=== PATIENT | female | born 1955 | race Caucasian/White ===

== ENCOUNTER 2020-09-08 07:47 | Outpatient (REF) | payer MEDICARE, SELFPAY ==
[2020-09-08 12:10] LABS: Alanine Aminotransferase 15 U/L (0-31); Albumin Level 4.3 g/dL (3.5-5.0); Alkaline Phosphatase 40 U/L (39-117); Anion Gap 12 (12-20); Aspartate Amino Transferase 26 U/L (5-31); Bilirubin Total 0.3 mg/dL (0.0-1.0); Blood Urea Nitrogen 14 mg/dL (9-16); Calcium 9.3 mg/dL (8.4-10.2); Carbon Dioxide 27 mmol/L (22-29); Chloride 105 mmol/L (96-108); Estimated Glomerular Filt Rate > 60; Glucose Fasting 88 mg/dL (60-99); Potassium 4.2 mmol/L (3.3-5.1); Sodium 140 mmol/L (135-145)
== END 2020-09-08 07:48 | disposition home or self-care (01) ==
LOC: HO.WFDLDS 07:47
PROVIDERS: PCP Internal Medicine; Visit Provider Nurse Practitioner Family
DX: Z13.1 Encounter for screening for diabetes mellitus (principal)
CPT/HCPCS: 36415; 80053

== ENCOUNTER 2020-11-08 11:46 | Outpatient (REF) | payer MEDICARE, SELFPAY ==
[2020-11-08 13:12] LABS: Vitamin B12 615 pg/mL (200-900)
== END 2020-11-08 11:47 | disposition home or self-care (01) ==
LOC: HO.LAB 11:46
PROVIDERS: PCP Internal Medicine; Visit Provider Psychiatry & Neurology Neurology
DX: G31.84 Mild cognitive impairment of uncertain or unknown etiology (principal)
CPT/HCPCS: 36415; 82607

== ENCOUNTER 2020-11-13 15:48 | Outpatient (REF) | payer MEDICARE, SELFPAY ==
--- NOTE | ~2020-11-13 | MR_ITS ---
EXAMINATION: MR BRAIN WITHOUT CONTRAST CLINICAL INFORMATION: Mild cognitive impairment. COMPARISON: None available. TECHNIQUE: Multiplanar, multisequence imaging of the brain was performed without intravenous contrast. FINDINGS: There is no acute infarction, mass, hemorrhage, or extra-axial collection. The ventricles and sulci are commensurate. No unexpected volume loss is seen. Specifically, no regional or lobar atrophy pattern is noted. The brain parenchyma signal appears normal. The flow voids of the major intracranial arteries appear intact. The bones and extracranial soft tissues are unremarkable. MR/MR head/brain wo con IMPRESSION: No acute infarct, mass lesion, intracranial hemorrhage, or evidence of hydrocephalus. No unexpected brain parenchymal volume loss.
== END 2020-11-13 15:49 | disposition home or self-care (01) ==
LOC: HO.MRI 15:48
PROVIDERS: Visit Provider Psychiatry & Neurology Neurology
DX: G31.84 Mild cognitive impairment of uncertain or unknown etiology (principal)
CPT/HCPCS: 70551

== ENCOUNTER 2020-11-17 11:33 | Outpatient (REF) | payer MEDICARE, SELFPAY ==
[2020-11-20 04:09] LABS: SARS COV2 IgG Negative (Negative)
== END 2020-11-17 11:34 | disposition home or self-care (01) ==
LOC: HO.WFDLDS 11:33
PROVIDERS: Visit Provider Family Medicine
DX: R05.9 Cough, unspecified (principal); Z01.84 Encounter for antibody response examination; Z20.822 Contact with and (suspected) exposure to COVID-19
CPT/HCPCS: 36415; 86769; U0003; U0005

== ENCOUNTER 2020-12-08 10:05 | Outpatient (REF) | payer MEDICARE, SELFPAY ==
--- NOTE | ~2020-12-08 | XR_ITS ---
EXAMINATION: XR CHEST CLINICAL INFORMATION: Cough. COMPARISON: None TECHNIQUE: 2 views of the chest were obtained. FINDINGS: No significant abnormality is noted involving the heart, lungs, mediastinum, bony thorax or soft tissues. XR/XR chest 2V IMPRESSION: Unremarkable examination.
== END 2020-12-08 10:06 | disposition home or self-care (01) ==
LOC: HO.XRAY 10:05
PROVIDERS: PCP Internal Medicine; Visit Provider Family Medicine
DX: R05.9 Cough, unspecified (principal)
CPT/HCPCS: 71046

== ENCOUNTER 2021-01-01 10:42 | Outpatient (REF) | payer MEDICARE, SELFPAY ==
[2021-01-03 21:17] LABS: Venous Lead <1 mcg/dL (<5)
== END 2021-01-01 10:43 | disposition home or self-care (01) ==
LOC: HO.WFDLDS 10:42
PROVIDERS: Visit Provider Internal Medicine
DX: Z77.011 Contact with and (suspected) exposure to lead (principal)
CPT/HCPCS: 36415; 83655

== ENCOUNTER 2021-01-30 09:18 | Outpatient (REF) | payer MEDICARE, SELFPAY ==
--- NOTE | ~2021-01-30 | FL_ITS ---
EXAMINATION: XR FLUOROSCOPY UPPER GI WITH AIR CLINICAL INFORMATION: Gastroesophageal reflux disease without esophagitis. COMPARISON: None. TECHNIQUE: A double contrast examination of the esophagus, stomach, and duodenum was performed. Oral barium contrast material and effervescent granules were self-administered. Fluoroscopic evaluation was performed and multiple spot images were obtained. FINDINGS: Pharyngeal structures and motility are normal without significant pooling of contrast in the valleculae and piriform sinuses. No diverticula. Esophageal mucosa appears normal with no evidence of stricture, ulceration, or significant esophagitis. Mild spontaneous gastroesophageal reflux into the distal third of the esophagus was seen with the patient in supine and prone positions. No hiatal hernia. Barium flows easily through a normal appearing stomach, duodenal bulb, and sweep without evidence of ulcer or inflammation. FLUOROSCOPY TIME: 1.8 minutes NUMBER OF FLUOROSCOPIC IMAGES (excluding screen captures): 30 images DOSE AREA PRODUCT: 6.8 Gy-cm2 (rico-centimeter squared) FL/FL upper GI w air IMPRESSION: Mild gastroesophageal reflux into the distal third of the esophagus without appreciable findings of acute esophagitis.
== END 2021-01-30 09:19 | disposition home or self-care (01) ==
LOC: HO.XRAY 09:18
PROVIDERS: Visit Provider Internal Medicine
DX: K21.9 Gastro-esophageal reflux disease without esophagitis (principal); R05.8 Other specified cough
CPT/HCPCS: 74246

== ENCOUNTER 2021-09-12 08:47 | Outpatient (REF) | payer MEDICARE, SELFPAY ==
--- NOTE | ~2021-09-12 | MM_ITS ---
EXAMINATION: BONE DENSITOMETRY CLINICAL INDICATION: Age-related osteoporosis without current pathological fracture. COMPARISON: Previous BD dated 09/09/2019 and baseline BD dated 07/05/2014. TECHNIQUE: Using a [employer] DXA System (software version: 13.1) manufactured by [employer], dual-energy x-ray absorptiometry was performed of the lumbar spine and left hip. The images are of good technical quality. Summary results are attached. FINDINGS: AP SPINE L1-L4: Current: BMD 0.945 g/cm2, Z-score 0.0, T-score -2.0, osteopenia, 3.5% decrease from previous, 10.3% decrease from baseline (<5% change is not significant). Prior: BMD 0.979 g/cm2. Baseline: BMD 1.053 g/cm2. LEFT FEMUR, NECK: Current: BMD 0.750 g/cm2, Z-score -0.3, T-score -2.1, osteopenia. Prior: BMD 0.699 g/cm2. Baseline: BMD 0.718 g/cm2. LEFT FEMUR, TOTAL: Current: BMD 0.769 g/cm2, Z-score -0.3, T-score -1.9, osteopenia, 9.9% increase from previous, 5.9% increase from baseline (<5% change is not significant). Prior: BMD 0.700 g/cm2. Baseline: BMD 0.726 g/cm2. IDENTIFIED RISK FACTORS: Osteoporosis, family history (parental hip fracture), menopause. HISTORY OF FRACTURE: None listed. MEDICATIONS: Calcium supplements or multivitamin, vitamin D, bisphosphonate. MM/XR DEXA axial skeleton IMPRESSION: 1. DIAGNOSIS: Osteopenia based on the lowest T-score value of -2.1 in the femoral neck applying World Health Organization criteria. 2. 10-YEAR FRACTURE RISK PREDICTION, FRAX: Major osteoporotic fracture (clinical spine, forearm, hip or shoulder) 18.0%. Hip fracture 2.8%. 3. Treatment Recommendations: NOF guidelines recommend consideration for treatment in postmenopausal women and men age 50 and older presenting with the following: -A hip or vertebral (clinical or morphometric) fracture. -T-score less than or equal to -2.5 at the femoral neck or spine after appropriate evaluation to exclude secondary causes. -Low bone mass at the hip or spine and a 10-year fracture probability by FRAX of greater than or equal to 3% for hip fracture or greater than or equal to 20% for major osteoporotic fracture based on the [place] adapted WHO algorithm. 4. Other Recommendations: All treatment decisions require clinical judgment and consideration of individual patient factors, including patient preferences, comorbidities, previous drug use, risk factors not captured in the FRAX model (e.g. frailty, falls, vitamin D deficiency, increased bone turnover, interval significant decline in bone density) and possible under or overestimation of fracture risk by FRAX. Additional medical evaluation for secondary cause of low bone mineral density may be appropriate. FUTURE SCAN RECOMMENDATION: People with diagnosed cases of osteoporosis or at high risk for fracture should have regular bone mineral density tests. For patients eligible for Medicare, routine testing is allowed once every 2 years. The testing frequency can be increased to one year for patients who have rapidly progressing disease, those who are receiving or discontinuing medical therapy to restore bone mass, or have additional risk factors.
== END 2021-09-12 08:48 | disposition home or self-care (01) ==
LOC: HO.MAMMO 08:47
PROVIDERS: PCP Internal Medicine; Visit Provider Internal Medicine
DX: M81.0 Age-related osteoporosis without current pathological fracture (principal); N95.1 Menopausal and female climacteric states
CPT/HCPCS: 77080

== ENCOUNTER 2021-09-21 08:20 | Outpatient (REF) | payer MEDICARE, SELFPAY ==
[2021-09-21 11:52] LABS: MANUAL DIFF FLAG NO
[2021-09-21 12:04] LABS: Basophils Absolute Auto 0.1 X10*3/uL (0.0-0.2); Basophils Percent Auto 1.2 % (0-2); Eosinophils Absolute Auto 0.3 X10*3/uL (0.0-0.4); Eosinophils Percent Auto 5.5 % (0-4); Imm Gran Abs Auto 0.02 X10*3/uL (0.00-0.03); Imm Gran Pct Auto 0.4 % (0.0-0.4); Lymphocytes Absolute Auto 1.5 X10*3/uL (1.2-4.9); Lymphocytes Percent Auto 30.3 % (20-40); Mean Corpuscular HGB Conc 31.6 g/dl (31.0-35.0); Mean Corpuscular Hemoglobin 28.2 pg (27.0-33.0); Mean Corpuscular Volume 89.2 fL (80.0-98.0); Mean Platelet Volume 11.8 fL (9.4-12.3); Monocytes Absolute Auto 0.6 X10*3/uL (0.1-1.2); Monocytes Percent Auto 12.6 % (2-11); Neutrophils Absolute Auto 2.5 x10*3/uL (2.0-8.3); Platelet Count 212 X10*3/uL (160-400); Red Blood Count 4.26 X10*6/uL (4.20-5.50); Red Cell Distribution Width 13.3 % (11.0-16.0); White Blood Count 4.9 X10*3/uL (4.8-10.8)
[2021-09-21 12:16] LABS: Appearance Urine CLEAR; Color Urine YELLOW; Glucose Urine UA NEG (NEG); Leukocyte Esterase Urine 1+ (NEG); Nitrite Urine NEG (NEG); PH 6.5 (5.0-8.0); Specific Gravity - Urine <= 1.005 (1.005-1.025); UACC Culture Trigger YES; Urine Blood NEG (NEG); Urine Ketones NEG (NEG); Urine Protein NEG (NEG-TRACE)
[2021-09-21 12:35] LABS: Alanine Aminotransferase 15 U/L (0-31); Albumin Level 4.4 g/dL (3.5-5.0); Alkaline Phosphatase 37 U/L (39-117); Anion Gap 13 (12-20); Aspartate Amino Transferase 23 U/L (5-31); Bilirubin Total 0.6 mg/dL (0.0-1.0); Blood Urea Nitrogen 18 mg/dL (9-16); Calcium 8.8 mg/dL (8.4-10.2); Carbon Dioxide 26 mmol/L (22-29); Chloride 103 mmol/L (96-108); Cholesterol 213 mg/dL; Estimated Glomerular Filt Rate > 60; Glucose Fasting 83 mg/dL (60-99); HDL Cholesterol 55 mg/dL; LDL Cholesterol Calculated 138 mg/dl; Potassium 4.2 mmol/L (3.3-5.1); Sodium 138 mmol/L (135-145); Total Protein 7.4 g/dL (6.5-8.0); Triglycerides 101 mg/dL
[2021-09-21 12:39] LABS: TSH reflex Free T4 2.76 uIU/mL (0.32-4.0); Vitamin D 25-OH Total 68.6 ng/mL (>30)
[2021-09-21 12:46] LABS: RBC Urine 0-2 /HPF (0); Squamous Epithelial Cell Urine TRACE /LPF
[2021-09-21 12:47] LABS: Bacteria Urine TRACE /LPF
== END 2021-09-21 08:21 | disposition home or self-care (01) ==
LOC: HO.WFDLDS 08:20
PROVIDERS: Visit Provider Internal Medicine
DX: I10 Essential (primary) hypertension (principal); E78.00 Pure hypercholesterolemia, unspecified; E55.9 Vitamin D deficiency, unspecified
CPT/HCPCS: 36415; 80053; 80061; 81001; 81003; 82306; 84443; 85025; 87086

== ENCOUNTER 2022-10-01 12:43 | Outpatient (AMB) | payer MEDICARE, SELFPAY ==
--- NOTE | 2022-10-01 12:47 | MHC.PC.OV ---
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 Required: No Accompanied by: Self / Same As Patient Allergies Chloroquine Phosphate Allergy (Intermediate, Uncoded 04/01/22 10:11) Hives Tobacco use date assessed: 10/01/22 Fall risk assessment: No Falls in past year Last assessed Fall Risk: 10/01/22 Dental Screening Dental Screen Date: 10/01/22 Did you have a dental visit in the last 12 months?: Yes Did you have a dental problem in the last 6 months where you did not have access to dental care?: No Was dental information given to patient?: Patient has dentist [facility] Medical History Allergic rhinitis Benign essential hypertension Osteoporosis Pure hypercholesterolemia Surgical History History of colonoscopy History of dilation and curettage History of tonsillectomy Family History Mother CHF (congestive heart failure) Diabetes Father Heart attack Brother Colon cancer Social History Housing: House Alcohol intake: current Alcohol intake frequency: does not drink Patient Tobacco Use Status: Never used Tobacco e-Cigarette/Vaping Use: Never Used Second Hand Smoke Exposure: No service: No Current occupational status: retired Cognitive needs: No Hearing needs: No Vision needs: Yes (Glasses) Questionnaire PHQ-9 Over the last 2 weeks, how often have you been bothered by any of the following problems? 1. Little interest or pleasure in doing things: several days 2. Feeling down, depressed, or hopeless: several days 3. Trouble falling or staying asleep, or sleeping too much: several days 4. Feeling tired or having little energy: several days 5. Poor appetite or overeating: not at all 6. Feeling bad about yourself - or that you are a failure or have let yourself or your family down: not at all 7. Trouble concentrating on things, such as reading the newspaper or watching television: not at all 8. Moving or speaking so slowly that other people could have noticed. Or the opposite - being so fidgety or restless that you have been moving around a lot more than usual: not at all 9. Thoughts that you would be better off or of hurting yourself in some way: not at all Total score: 4 Depression Screening Interpretation: Positive Depression Screening Follow-up: Declines treatment (states that this has mostly to do with stress regarding 's health) [address]642 - PHQ-9 Billing: Yes Source: Developed by Drs. Palomo Cueva, Trish Nunez, Dawson Zheng and colleagues, with an educational bre from [employer]. Thrive Questionnaire Date Thrive assessed: 10/01/22 I am a: Patient What is your living situation today?: I have a steady place to live Within the past 12 months, did the food you bought not last and you didn't have the money to get more?: Never true Within the past 12 months, did you worry whether your food would run out before you got money to buy more?: Never true Do you have trouble paying for medicines?: No Do you have trouble getting transportation to medical appointments?: No Do you have trouble paying your heating and electricity bill?: No Do you have trouble taking care of your child, family member or friend?: No Do you have trouble with day-to-day activities such as bathing, preparing meals, shopping, managing finances, etc.?: No Are you currently unemployed and looking for a job?: No Are you interested in more education?: No Please select the resources that you would like help with: None Currently or been in a relationship where the following occur: no concerns reported AUDIT C Alcohol Use Questionnaire (AUDIT-C) 1. How often do you have a drink containing alcohol?: Monthly or less 2. How many drinks containing alcohol do you have on a typical day when you are drinking?: 1 or 2 3. How often do you have six or more drinks on one occasion?: Never Total Score: 1 Score Reviewed/Action Taken: Yes NIKHIL-7 AMB Questionnaire NIKHIL-7 Date NIKHIL - 7 assessed: 10/01/22 Feeling nervous, anxious, or on edge: 0 = Not at all Not being able to stop or control worryin = Not at all Worrying too much about different things: 0 = Not at all Trouble relaxin = Not at all Being so restless that it is hard to sit still: 0 = Not at all Becoming easily annoyed or irritable: 0 = Not at all Feeling afraid as if something awful might happen: 0 = Not at all Total NIKHIL-7 score (0-4 normal; 5-9 mild; 10-14 moderate; 15-21 severe): 0 Source: Developed by Drs. Palomo Cueva, Trish Nunez, Dawson Zheng and colleagues, with an educational bre from [employer]. Physical exam (Primary Care) Vital Signs: Last Vital Signs Pulse 71 10/01/22 12:48 BP 114/80 10/01/22 12:48 Pulse Ox 95 10/01/22 12:48 Oxygen Delivery Method Room Air 10/01/22 12:48 BMI result Body Mass Index 20.1 Tobacco/Smoking Status: Tobacco use Status Tobacco use date assessed 10/01/22 10/01/22 12:55 Patient Tobacco Use Status Never used Tobacco 10/01/22 12:55 e-Cigarette/Vaping Use Never Used 10/01/22 12:55 PHQ-9: PHQ-9 Score PHQ-9: Total score 4 10/01/22 12:55 Depression Screening Interpretation: Positive Depression Screening Follow-up: Declines treatment (states that this has mostly to do with stress regarding 's health) Thrive Assessment: Date of Thrive Assessment Date Thrive assessed 10/01/22 10/01/22 12:55 Currently or been in a relationship where the following occur: no concerns reported Coding Diagnoses
[2022-10-01 12:48] VITALS: BP 114/80; PULSE 71; O2SAT 95; BMI 20.1
--- NOTE | 2022-10-01 12:56 | AM.OFFVISMDC ---
Intake Vital Signs 10/01/22 12:48 Height 5 ft 4 in Weight 117 lb 2 oz BMI 20.1 BP 114/80 Blood Pressure Location Lt brachial Position Sitting Pulse 71 Pulse Source Pulse Oximeter Pulse Oximetry (%) 95 Oxygen Delivery Method Room Air Intake Visit Reasons: physical Bag Bundler Required: No Accompanied by: Self / Same As Patient Allergies Chloroquine Phosphate Allergy (Intermediate, Uncoded 10/01/22 13:09) Hives Medication List - Last Reconciled 10/01/22 by Prem Blanchard MD calcium carbonate (Wander-Mint) 520 mg PO DAILY cholecalciferol (vitamin D3) 25 mcg PO DAILY ibandronate 150 mg PO .once a month 90 days losartan 25 mg PO DAILY multivitamin 1 tab PO DAILY omega-3 fatty acids (Fish Oil Concentrate) 1,000 mg PO DAILY polyethylene glycol 3350 (Miralax) 17 grams PO DAILY Do you need a note to return to daycare/school/sports/work: No HPI physical HPI Details Patient comes in today for her Annual Medicare Wellness Exam AND 6 months follow up visit States that she currently feels okay She denies any headaches or dizziness Denies any chest pains, no SOB No nausea/vomiting, no abdominal pain No change in bowel habits noted Reports experiencing on and off pain over both of her heels for the past few weeks; notes that symptoms tend to occur in the morning when she first gets up and would slowly ease up when she stretches her feet and walks gingerly on her feet for a while Does not recall any recent injury or trauma to her feet Was not able to get her follow up labs done prior to her visit today IPPE/AWV: c/o of Annual Wellness Visit, subsequent visit. Medical / Social History Reviewed Past Medical History Yes . [place] of Care / Care Team list updated Yes . Surgical/Hospitalization History Yes . Current Medications (including OTC and supplements) Yes . Family History Yes . Tobacco Control form Yes . AUDIT-C (Alcohol use) form Yes . Illicit drug use in Social History Yes . Current diagnosis of depression? No Appropriate PHQ2/PHQ9 completed Yes . Data entered by Money Room Supervisor and reviewed by provider Home Safety Throw rugs? No Grab bars? No Raised toilet seats? No Working smoke detectors? Yes Working carbon monoxide detectors? Yes Data entered by Money Room Supervisor and reviewed by provider Activities of Daily Living (ADLs) Difficulty bathing or showering? No Difficulty dressing? No Difficulty using the toilet? No Difficulty getting in and out of bed? No Difficulty walking? No Receives help from another person with any of the above tasks? No Instrumental Activities of Daily Living (IADLs) Uses the telephone without help Gets to places out of walking distance without help Goes shopping for groceries without help Prepares own meals without help Does own minor home maintenance without help Does own laundry without help Does own housework without help Manages own money without help Currently takes medications? Yes Takes medication without help End-of-Life Planning Discussed advance directive Yes Advance directive on file Discussed wishes expressed in advance directive agreed to following patient's wishes Fall Risk: Fall History Have you had any falls with injury in the past year? No . Have you had two or more falls in the past year? No . Fall Risk Assessment: No falls in the past year . HRA filled out by the patient, reviewed by Provider and scanned. [facility] Medical History (Updated 10/01/22 @ 13:47 by Prem Blanchard MD) Allergic rhinitis Benign essential hypertension Insomnia Osteoporosis Pure hypercholesterolemia Surgical History History of colonoscopy History of dilation and curettage History of tonsillectomy Family History Mother CHF (congestive heart failure) Diabetes Father Heart attack Brother Colon cancer Social History Housing: House Alcohol intake: current Alcohol intake frequency: does not drink Patient Tobacco Use Status: Never used Tobacco e-Cigarette/Vaping Use: Never Used Second Hand Smoke Exposure: No service: No Current occupational status: retired Cognitive needs: No Hearing needs: No Vision needs: Yes (Glasses) Questionnaire Medicare Wellness Checkup [age] What gender do you identify with?: female During the past 4 weeks, how much have you been bothered by emotional problems such as feeling anxious, depressed, irritable, sad or downhearted, and blue?: moderately During the past 4 weeks, has your physical & emotional health limited your social activities with family, friends, neighbors, or groups?: not at all During the past 4 weeks, how much bodily pain have you generally had?: very mild pain During the past 4 weeks, was someone available to help you if you needed & wanted help?: yes, quite a bit During the past 4 weeks, what was the hardest physical activity you could do for at least 2 minutes?: very heavy Can you get to places out of walking distance without help? (For eg., can you travel alone on buses, taxis or drive your car?): Yes Can you go shopping for groceries or clothes without someone's help?: Yes Can you prepare your own meals?: Yes Can you do your housework without help?: Yes Because of any health problems, do you need the help of another person with your personal care needs such as eating, bathing, dressing or getting around the house?: No Can you handle your own money without help?: Yes During the past 4 weeks, how would you rate your health in general?: very good During the past 4 weeks how have things been going for you?: pretty well Are you having difficulties driving your car?: no Do you always fasten your seat belt when you are in a car?: yes, usually During past 4 weeks, have you been bothered by the following: never: Falling or dizzy when standing up, Sexual problems?, Trouble eating well?, Teeth or denture problems?, Problems using the telephone? and Tiredness or fatigue? Have you fallen 2 or more times in the past year?: No Are you afraid of falling?: No Are you a smoker?: no During the past 4 weeks, how many drinks of wine, beer, or other alcoholic beverages did you have?: 1 drink or less per week Do you exercise for about 20 minutes 3 or more times a week?: yes, most of the time Have you been given information to help with the following?: no: Hazards in your house that might hurt you? and no: Keeping track of your medications? How often do you have trouble taking medicines the way you have been told to take them?: I always take medicine as prescribed How confident are you that you can control & manage most of your health problems?: very confident What is your race?: White Mini Mental State Exam (MMSE) Orientation What is the (year) (season) (date) (day) (month)?: year, season, date, day and month Where are we (state) (county) (town or city) (hospital) (floor)?: state, county, town or city, hospital/clinic and floor Score Score: 10 Activity of Daily Living Bathing - sponge bath, tub bath or shower: receives no assistance (gets in/out by self, if usual bathing means Dressing - getting clothes from closets & drawers, including inner/outer garments & fasteners.: gets clothes & gets completely dressed without help Toileting - going to the 'toilet room' for urine/bowel elimination & cleaning self/arranging clothes: goes to toilet room, cleans self, arranges clothes without help Transfer: moves in & out of bed and chair without help (may use support object) Continence: controls urination/bowel movements completely by self Feeding: feeds self without help Total Score: 0 Information obtained from: patient Using telephone: independent Traveling: independent Shopping: independent Preparing meals: independent Housework: independent Taking medicine: independent Managing money: independent PHQ-9 Over the last 2 weeks, how often have you been bothered by any of the following problems? 1. Little interest or pleasure in doing things: several days 2. Feeling down, depressed, or hopeless: several days (mostly due to some family members' failing health lately) 3. Trouble falling or staying asleep, or sleeping too much: several days 4. Feeling tired or having little energy: several days 5. Poor appetite or overeating: not at all 6. Feeling bad about yourself - or that you are a failure or have let yourself or your family down: not at all 7. Trouble concentrating on things, such as reading the newspaper or watching television: not at all 8. Moving or speaking so slowly that other people could have noticed. Or the opposite - being so fidgety or restless that you have been moving around a lot more than usual: not at all 9. Thoughts that you would be better off or of hurting yourself in some way: not at all Total score: 4 Depression Screening Interpretation: Positive Depression Screening Follow-up: Existing condition and Declines treatment 54107 - PHQ-9 Billing: Yes Source: Developed by Drs. Palomo Ceuva, Dawson Kovacs and colleagues, with an educational bre from [employer]. PHQ-2/PHQ-9 PHQ-2 Over the last 2 weeks, how often have you been bothered by any of the following problems? 1. Little interest or pleasure in doing things: several days 2. Feeling down, depressed, or hopeless: several days (mostly due to some family members' failing health lately) Total score: 2 If score is 3 or greater, continue 3. Trouble falling or staying asleep, or sleeping too much: several days 4. Feeling tired or having little energy: several days 5. Poor appetite or overeating: not at all 6. Feeling bad about yourself - or that you are a failure or have let yourself or your family down: not at all 7. Trouble concentrating on things, such as reading the newspaper or watching television: not at all 8. Moving or speaking so slowly that other people could have noticed. Or the opposite - being so fidgety or restless that you have been moving around a lot more than usual: not at all 9. Thoughts that you would be better off or of hurting yourself in some way: not at all Total score: 4 0-4 None-Minimal, 5-9 Mild, 10-14 Moderate, 15-19 Moderately Severe, 20-27 Severe Source: Developed by Drs. Palomo Cueva, Dawson Kovacs and colleagues, with an educational bre from [employer]. Thrive Questionnaire Date Thrive assessed: 10/01/22 I am a: Patient What is your living situation today?: I have a steady place to live Within the past 12 months, did the food you bought not last and you didn't have the money to get more?: Never true Within the past 12 months, did you worry whether your food would run out before you got money to buy more?: Never true Do you have trouble paying for medicines?: No Do you have trouble getting transportation to medical appointments?: No Do you have trouble paying your heating and electricity bill?: No Do you have trouble taking care of your child, family member or friend?: No Do you have trouble with day-to-day activities such as bathing, preparing meals, shopping, managing finances, etc.?: No Are you currently unemployed and looking for a job?: No Are you interested in more education?: No Please select the resources that you would like help with: None Currently or been in a relationship where the following occur: no concerns reported NIKHIL-7 AMB Questionnaire NIKHIL-7 Date NIKHIL - 7 assessed: 10/01/22 Feeling nervous, anxious, or on edge: 0 = Not at all Not being able to stop or control worryin = Not at all Worrying too much about different things: 0 = Not at all Trouble relaxin = Not at all Being so restless that it is hard to sit still: 0 = Not at all Becoming easily annoyed or irritable: 0 = Not at all Feeling afraid as if something awful might happen: 0 = Not at all Total NIKHIL-7 score (0-4 normal; 5-9 mild; 10-14 moderate; 15-21 severe): 0 Source: Developed by Drs. Palomo Cueva, Trish Nunez, Dawson Zheng and colleagues, with an educational bre from [employer]. Review of Systems Const Denies chills, Reports difficulty sleeping, Reports fatigue, Denies fever(s) and Denies headache(s) ENT Denies dysphagia, Denies dizziness, Denies otalgia, Denies headache(s), Reports hearing loss, Reports tinnitus (in both ears for the past few months, more noticeable at night) and Denies sore throat Card Denies chest pain, Denies palpitations and Denies dyspnea Resp Denies chest congestion, Denies cough and Denies dyspnea GI Denies abdominal pain, Denies constipation, Denies dysphagia, Denies heartburn, Denies diarrhea, Denies nausea and Denies vomiting Denies difficulty voiding, Denies nocturia and Denies dysuria Musc Details: on and off mild pain over the heels bilaterally Neuro Denies dizziness and Denies headache(s) Endo Reports fatigue and Denies palpitations Physical Exam Vital Signs: Last Vital Signs Pulse 71 10/01/22 12:48 BP 114/80 10/01/22 12:48 Pulse Ox 95 10/01/22 12:48 Oxygen Delivery Method Room Air 10/01/22 12:48 BMI result Body Mass Index 20.1 IPPE/AWV: Balance Romberg Yes . Tandem walk Yes . Walk and Turn Yes . Rise from sit to stand Yes . Vision Corrective lens No Vision screen pass Hearing Whisper test pass . Urinary incont. no. EKG Not clinically necessary. Const General: no acute distress and alert Orientation/consciousness: patient oriented x3 HEENT Ears: TM's normal bilaterally and EAC's normal Throat: Yes posterior oropharynx normal and Yes tonsils normal (no TP congestion noted) Neck Neck: Yes no lymphadenopathy and Yes supple Resp Auscultation: clear to auscultation bilaterally, no rales and no wheezes Cardio Rate: regular rate Rhythm: regular rhythm Heart sounds: no murmurs GI Palpation (GI): Soft to palpation and nontender Auscultation: normal bowel sounds Skin Rashes: no rashes Neuro General: patient oriented x3 and no focal motor deficits Cognition (Neuro): normal cognition Gait exam (Neuro): Normal gait present Extrem General: Yes no clubbing, cyanosis or edema Right lower extremity: foot Details: tenderness (minimal) Location: of the calcaneus Left lower extremity: foot Details: tenderness (minimal) Location: of the calcaneus Psych Mental Status: mental status grossly normal Thought process: Normal thought process present Assessment & Plan Assessment & Plan (1) Medicare annual wellness visit, subsequent: Code(s): Z00.00 - Encounter for general adult medical examination without abnormal findings Plan: HRA form completed and discussed with patient; form will be scanned into patient's chart She is due for her repeat colonoscopy this year and will contact her solar energy specialist's (Dr. 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 (2) Pure hypercholesterolemia: Code(s): E78.00 - Pure hypercholesterolemia, unspecified Plan: Reinforced low cholesterol diet Instructed to try getting her follow up labs done AVINASH (3) Benign essential hypertension: Code(s): I10 - Essential (primary) hypertension Plan: Reinforced low sodium diet - goal is systolic BP of at least 130 mm or less Continue Losartan 25 mg QD (4) Recurrent dry cough: Code(s): R05.8 - Other specified cough Plan: Previously resolved when her Lisinopril was switched over to Losartan but states that her symptoms still recur every now and then; denies any SOB CXR in November 2020 came out normal; UGI series in January 2021 showed (+) GERD up to the distal third of the esophagus Symptoms have improved with Famotidine PRN and Loratadine PRN, so she thinks that her recurrent symptoms could be due to a combination of GERD and allergies (5) GERD (gastroesophageal reflux disease): Code(s): K21.9 - Gastro-esophageal reflux disease without esophagitis Qualifiers: Esophagitis presence: without esophagitis Qualified Code(s): K21.9 - Gastro-esophageal reflux disease without esophagitis Plan: Upper GI series for further evaluation done in January 2021 revealed (+) mild reflux into the distal third of the esophagus Continue OTC Famotidine 20 mg BID PRN; could not tolerate Omeprazole 20 mg - patient reports frequent abdominal bloating, gas and occasional diarrhea while she was on Omeprazole Reinforced dietary restrictions (6) Allergic rhinitis: Code(s): J30.9 - Allergic rhinitis, unspecified Qualifiers: Allergic rhinitis trigger: unspecified Allergic rhinitis seasonality: unspecified Qualified Code(s): J30.9 - Allergic rhinitis, unspecified Plan: Continue OTC Loratadine 10 mg QD PRN (7) IBS (irritable bowel syndrome): Code(s): K58.9 - Irritable bowel syndrome without diarrhea Qualifiers: Irritable bowel syndrome type: with constipation Qualified Code(s): K58.1 - Irritable bowel syndrome with constipation Plan: Symptoms are predominantly constipation Continue Miralax 17 gm QD (8) Osteoporosis: Code(s): M81.0 - Age-related osteoporosis without current pathological fracture Qualifiers: Osteoporosis type: age-related Presence of current pathological fracture: without current pathological fracture Qualified Code(s): M81.0 - Age-related osteoporosis without current pathological fracture Plan: Repeat BMD done on 09/12/2021 revealed osteopenia based on the lowest T-score value of -2.1 in the femoral neck - this has again improved from her BMD in 2019 Patient encouraged to continue her daily Vitamin-D and oral calcium aupplements Continue Ibandronate 150 mg Q month (started in March 2018) (9) Pain of both heels: Code(s): M79.671 - Pain in right foot; M79.672 - Pain in left foot Plan: Will send her for x-rays of both feet/heels for further evaluation Discussed that her symptoms may be due to heel spurs or plantar fasciitis and if symptoms progress, may need to refer her to podiatry (10) Insomnia: Code(s): G47.00 - Insomnia, unspecified Qualifiers: Insomnia type: unspecified Qualified Code(s): G47.00 - Insomnia, unspecified Plan: States that her problem is mostly staying asleep and she tends to wake up for no identifiable reason after 4 to 5 hours of sleep and she has a hard time going back to sleep Advised that she can try some OTC sleep aids PRN for now and if they do not help, she can always call for stronger Rx for her insomnia at any time Sleep hygiene discussed Plan Follow up in 6 months Orders: Orders XR foot LT min 3V Today M79.671 - Pain in right foot, M79.672 - Pain in left foot XR foot RT min 3V Today M79.671 - Pain in right foot, M79.672 - Pain in left foot Quality Reporting (2019) Depression/Bipolar (159/160/161/177) PHQ-9: Total score: 4 Coding Level of Care Code Medicare Subsequent (G0439) Est Pt Level 4 (10959) Diagnoses Medicare annual wellness visit, subsequent Z00.00 Pure hypercholesterolemia E78.00 Benign essential hypertension I10 Recurrent dry cough R05.8 GERD (gastroesophageal reflux disease) K21.9 Esophagitis presence: without esophagitis Allergic rhinitis J30.9 Allergic rhinitis trigger: unspecified Allergic rhinitis seasonality: unspecified IBS (irritable bowel syndrome) K58.1 Irritable bowel syndrome type: with constipation Osteoporosis M81.0 Osteoporosis type: age-related Presence of current pathological fracture: without current pathological fracture Pain of both heels M79.671; M79.672 Insomnia G47.00 Insomnia type: unspecified
== END 2022-10-01 13:38 | disposition home or self-care (01) ==
PROVIDERS: Visit Provider Internal Medicine
DX: Z00.00 Encounter for general adult medical examination without abnormal findings (principal); I10 Essential (primary) hypertension; K21.9 Gastro-esophageal reflux disease without esophagitis; K58.1 Irritable bowel syndrome with constipation; E78.00 Pure hypercholesterolemia, unspecified; R05.8 Other specified cough; J30.9 Allergic rhinitis, unspecified; M81.0 Age-related osteoporosis without current pathological fracture; M79.671 Pain in right foot; M79.672 Pain in left foot; G47.00 Insomnia, unspecified
CPT/HCPCS: G0439

== ENCOUNTER 2022-10-02 07:57 | Outpatient (REF) | payer MEDICARE, SELFPAY ==
[2022-10-02 11:21] LABS: MANUAL DIFF FLAG NO
[2022-10-02 11:35] LABS: Basophils Absolute Auto 0.1 X10*3/uL (0.0-0.2); Basophils Percent Auto 1.2 % (0-2); Eosinophils Absolute Auto 0.3 X10*3/uL (0.0-0.4); Eosinophils Percent Auto 7.2 % (0-4); Hematocrit 36.3 % (37.0-47.0); Hemoglobin 11.6 g/dl (12.0-16.0); Imm Gran Abs Auto 0.01 X10*3/uL (0.00-0.03); Imm Gran Pct Auto 0.2 % (0.0-0.4); Lymphocytes Absolute Auto 1.4 X10*3/uL (1.2-4.9); Lymphocytes Percent Auto 31.9 % (20-40); Mean Corpuscular Hemoglobin 28.9 pg (27.0-33.0); Mean Corpuscular Volume 90.3 fL (80.0-98.0); Mean Platelet Volume 12.1 fL (9.4-12.3); Monocytes Absolute Auto 0.6 X10*3/uL (0.1-1.2); Monocytes Percent Auto 13.7 % (2-11); Neutrophils Percent Auto 45.8 % (45-73); Platelet Count 183 X10*3/uL (160-400); Red Blood Count 4.02 X10*6/uL (4.20-5.50); Red Cell Distribution Width 13.5 % (11.0-16.0); White Blood Count 4.3 X10*3/uL (4.8-10.8)
[2022-10-02 11:56] LABS: Appearance Urine Clear; Color Urine Yellow; Glucose Urine UA Negative (Negative); Leukocyte Esterase Urine Moderate (2+) (Negative); Nitrite Urine Negative (Negative); UMIC TRIGGER UACC YES; Urine Blood Negative (Negative); Urine Ketones Negative (Negative); Urine Protein Negative (Neg-Trace)
[2022-10-02 11:58] LABS: Alanine Aminotransferase 15 U/L (0-31); Albumin Level 4.2 g/dL (3.5-5.0); Alkaline Phosphatase 34 U/L (39-117); Anion Gap 10 (12-20); Aspartate Amino Transferase 24 U/L (5-31); Bilirubin Total 0.5 mg/dL (0.0-1.0); Blood Urea Nitrogen 15 mg/dL (9-16); Calcium 9.6 mg/dL (8.4-10.2); Carbon Dioxide 30 mmol/L (22-29); Chloride 104 mmol/L (96-108); Cholesterol 187 mg/dL; Estimated Glomerular Filt Rate > 60; Glucose Fasting 84 mg/dL (60-99); HDL Cholesterol 51 mg/dL; LDL Cholesterol Calculated 119 mg/dl; Potassium 4.3 mmol/L (3.3-5.1); Sodium 140 mmol/L (135-145); Total Protein 7.4 g/dL (6.5-8.0); Triglycerides 89 mg/dL
[2022-10-02 12:00] LABS: Bacteria Urine None Seen (None Seen); Hyaline Casts Urine 0-2 /LPF (0-2); RBC Urine 0-2 /HPF (0-2); Squamous Epithelial Cell Urine 0-2 /HPF (0-2); UACC Culture Trigger YES
[2022-10-02 12:20] LABS: TSH reflex Free T4 3.26 uIU/mL (0.32-4.0); Vitamin D 25-OH Total 93.4 ng/mL (>30)
== END 2022-10-02 07:58 | disposition home or self-care (01) ==
LOC: HO.WFDLDS 07:57
PROVIDERS: Visit Provider Internal Medicine
DX: E55.9 Vitamin D deficiency, unspecified (principal); I10 Essential (primary) hypertension; E78.00 Pure hypercholesterolemia, unspecified; R30.0 Dysuria
CPT/HCPCS: 36415; 80053; 80061; 81001; 82306; 84443; 85025; 87086

== ENCOUNTER 2022-10-03 14:02 | Outpatient (REF) | payer MEDICARE, SELFPAY ==
--- NOTE | ~2022-10-03 | XR_ITS ---
EXAMINATION: Bilateral foot x-ray CLINICAL INFORMATION: Pain COMPARISON: None. TECHNIQUE: 3 views of each foot FINDINGS: Right: Hallux valgus deformity and degenerative change at the first MTP joint. No erosive changes. No fracture or dislocation. Soft tissue calcifications adjacent to the second third and fifth metatarsal bones. No fracture or dislocation. Left: Mild valgus deformity and degenerative change at the first MTP joint. Slight lateral subluxation of the proximal phalanx with respect to the metatarsal head. No erosive changes. Adjacent soft tissue swelling. No fracture or dislocation. XR/XR foot RT min 3V IMPRESSION: Bilateral hallux valgus deformity and degenerative change at the first MTP joint, left greater than right.
--- NOTE | ~2022-10-03 | XR_ITS ---
EXAMINATION: Bilateral foot x-ray CLINICAL INFORMATION: Pain COMPARISON: None. TECHNIQUE: 3 views of each foot FINDINGS: Right: Hallux valgus deformity and degenerative change at the first MTP joint. No erosive changes. No fracture or dislocation. Soft tissue calcifications adjacent to the second third and fifth metatarsal bones. No fracture or dislocation. Left: Mild valgus deformity and degenerative change at the first MTP joint. Slight lateral subluxation of the proximal phalanx with respect to the metatarsal head. No erosive changes. Adjacent soft tissue swelling. No fracture or dislocation. XR/XR foot LT min 3V IMPRESSION: Bilateral hallux valgus deformity and degenerative change at the first MTP joint, left greater than right.
== END 2022-10-03 14:03 | disposition home or self-care (01) ==
LOC: HO.XRAY 14:02
PROVIDERS: PCP Internal Medicine; Visit Provider Internal Medicine
DX: M79.671 Pain in right foot (principal); M79.672 Pain in left foot
CPT/HCPCS: 73630

== ENCOUNTER 2023-04-03 11:43 | Outpatient (AMB) | payer MEDICARE, SELFPAY ==
[2023-04-03 11:52] VITALS: BP 132/88; PULSE 61; O2SAT 98; BMI 20.5
--- NOTE | 2023-04-03 11:52 | MHC.PC.OV ---
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 Accompanied by: Self / Same As Patient Allergies Chloroquine Phosphate Allergy (Intermediate, Uncoded 04/03/23 12:15) Hives Medication List - Last Reconciled 04/03/23 by Prem Blanchard MD calcium carbonate (Wander-Mint) 520 mg PO DAILY cholecalciferol (vitamin D3) 25 mcg PO DAILY losartan 25 mg PO DAILY multivitamin 1 tab PO DAILY omega-3 fatty acids (Fish Oil Concentrate) 1,000 mg PO DAILY polyethylene glycol 3350 (Miralax) 17 grams PO DAILY Tobacco use date assessed: 04/03/23 Fall risk assessment: 2 + Falls in past year Last assessed Fall Risk: 04/03/23 Dental Screening Dental Screen Date: 04/03/23 Did you have a dental visit in the last 12 months?: Yes Did you have a dental problem in the last 6 months where you did not have access to dental care?: No Was dental information given to patient?: Patient has dentist HPI 6 month f/u HPI Details Patient comes in today for her follow up visit States that she has had a recurrent cough for a couple of months now - cough is mostly non-productive Patient initially thought that her cough was just due to allergies as she's had similar symptoms around this time of the year in the past States that she has tried taking some OTC Loratadine as we have recommended for a month or so but did not feel that the medication helped much She denies any fever or sore throat; denies any headaches or dizziness Denies any chest pains, no SOB No nausea/vomiting, no abdominal pain No change in bowel habits noted Adds that she stopped her Ibandronate last month when her Rx ran out (as we have instructed her to do recently) as she has been on the Rx for about 5 years now [facility] Medical History Insomnia Pure hypercholesterolemia Allergic rhinitis Benign essential hypertension Osteoporosis Surgical History History of colonoscopy History of dilation and curettage History of tonsillectomy Family History Mother CHF (congestive heart failure) Diabetes Father Heart attack Brother Colon cancer Social History Housing: House Alcohol intake: current Alcohol intake frequency: does not drink Patient Tobacco Use Status: Never used Tobacco e-Cigarette/Vaping Use: Never Used Second Hand Smoke Exposure: No service: No Current occupational status: retired Cognitive needs: No Hearing needs: No Vision needs: Yes (Glasses) Questionnaire PHQ-9 Over the last 2 weeks, how often have you been bothered by any of the following problems? 1. Little interest or pleasure in doing things: several days 2. Feeling down, depressed, or hopeless: several days (mostly due to some family members' failing health lately) 3. Trouble falling or staying asleep, or sleeping too much: several days 4. Feeling tired or having little energy: several days 5. Poor appetite or overeating: not at all 6. Feeling bad about yourself - or that you are a failure or have let yourself or your family down: not at all 7. Trouble concentrating on things, such as reading the newspaper or watching television: not at all 8. Moving or speaking so slowly that other people could have noticed. Or the opposite - being so fidgety or restless that you have been moving around a lot more than usual: not at all 9. Thoughts that you would be better off or of hurting yourself in some way: not at all Total score: 4 Depression Screening Interpretation: Positive Depression Screening Follow-up: Existing condition and Declines treatment Depression Screening Done: Yes 76834 - PHQ-9 Billing: Yes Source: Developed by Drs. Palomo Cueva, Trish Nunez, Dawson Zheng and colleagues, with an educational bre from [employer]. Thrive Questionnaire Date Thrive assessed: 04/03/23 I am a: Patient What is your living situation today?: I have a steady place to live Within the past 12 months, did the food you bought not last and you didn't have the money to get more?: Never true Within the past 12 months, did you worry whether your food would run out before you got money to buy more?: Never true Do you have trouble paying for medicines?: No Do you have trouble getting transportation to medical appointments?: No Do you have trouble paying your heating and electricity bill?: No Do you have trouble taking care of your child, family member or friend?: No Do you have trouble with day-to-day activities such as bathing, preparing meals, shopping, managing finances, etc.?: No Are you currently unemployed and looking for a job?: No Are you interested in more education?: No Please select the resources that you would like help with: None Currently or been in a relationship where the following occur: no concerns reported THRIVE Score: 0 AUDIT C Alcohol Use Questionnaire (AUDIT-C) 1. How often do you have a drink containing alcohol?: Monthly or less 2. How many drinks containing alcohol do you have on a typical day when you are drinking?: 1 or 2 3. How often do you have six or more drinks on one occasion?: Never Total Score: 1 Score Reviewed/Action Taken: Yes NIKHIL-7 AMB Questionnaire NIKHIL-7 Date NIKHIL - 7 assessed: 04/03/23 Feeling nervous, anxious, or on edge: 0 = Not at all Not being able to stop or control worryin = Not at all Worrying too much about different things: 0 = Not at all Trouble relaxin = Not at all Being so restless that it is hard to sit still: 0 = Not at all Becoming easily annoyed or irritable: 0 = Not at all Feeling afraid as if something awful might happen: 0 = Not at all Total NIKHIL-7 score (0-4 normal; 5-9 mild; 10-14 moderate; 15-21 severe): 0 Source: Developed by Drs. Palomo Cueva, Trish Nunez, Dawson Zheng and colleagues, with an educational bre from [employer]. Review of Systems Const Reports difficulty sleeping, Reports fatigue, Denies fever(s) and Denies headache(s) ENT Denies dysphagia, Denies dizziness, Denies headache(s), Reports hearing loss, Denies odynophagia, Reports tinnitus (in both ears for the past few months, more noticeable at night) and Denies sore throat Card Denies chest pain, Denies palpitations and Denies dyspnea Resp Denies chest congestion, Reports cough (recurrent for the past couple of months; non-productive), Denies excessive phlegm production, Denies dyspnea and Denies wheezing GI Denies abdominal pain, Denies constipation, Denies dysphagia, Denies heartburn, Denies diarrhea, Denies nausea, Denies odynophagia and Denies vomiting Denies difficulty voiding, Denies nocturia, Denies dysuria and Denies urinary urgency Musc Details: on and off mild pain over the heels bilaterally Skin/Breast Denies rash Neuro Denies dizziness and Denies headache(s) Endo Reports fatigue and Denies palpitations Aller/Immun Denies wheezing Physical exam (Primary Care) Vital Signs: Last Vital Signs Pulse 61 04/03/23 11:52 BP 132/88 04/03/23 11:52 Pulse Ox 98 04/03/23 11:52 Oxygen Delivery Method Room Air 04/03/23 11:52 BMI result Body Mass Index 20.5 Tobacco/Smoking Status: Tobacco use Status Tobacco use date assessed 04/03/23 04/03/23 11:54 Patient Tobacco Use Status Never used Tobacco 04/03/23 11:54 e-Cigarette/Vaping Use Never Used 04/03/23 11:54 PHQ-9: PHQ-9 Score PHQ-9: Total score 4 04/03/23 12:06 Depression Screening Interpretation: Positive Depression Screening Follow-up: Existing condition and Declines treatment Thrive Assessment: Date of Thrive Assessment Date Thrive assessed 04/03/23 04/03/23 11:54 Currently or been in a relationship where the following occur: no concerns reported Const General: no acute distress and alert HENMT Ears: TM's normal bilaterally and EAC's normal Throat: Yes posterior oropharynx normal and Yes tonsils normal (no TP congestion) Neck Neck: Yes no lymphadenopathy and Yes supple Thyroid: Thyroid normal Resp Auscultation: no rales, rhonchi (scattered) throughout and wheezes (faint, occasionally) expiratory wheezes Cardio Rate: regular rate Rhythm: regular rhythm Heart sounds: no murmurs GI Palpation (GI): Soft to palpation and nontender Auscultation: normal bowel sounds General: Yes no CVA tenderness Back/Spine/Pelvis Back: no CVA tenderness Skin Rashes: no rashes Extrem General: Yes no clubbing, cyanosis or edema Assessment and Plan Assessment & Plan (1) Recurrent non-productive cough: Code(s): R05.8 - Other specified cough Plan: Lung auscultation today revealed (+) scattered rhonchi with occasional faint expiratory wheezing bilaterally Discussed that it is possible that she may have been dealing with some respiratory infection recently that has continued to linger Will send her for chest x-rays AVINASH for further evaluation Advised that we will reach back out to her with the appropriate recommendations if her x-ray findings reveal anything that would require further management or treatment (2) Benign essential hypertension: Code(s): I10 - Essential (primary) hypertension Plan: Reinforced low sodium diet - goal is systolic BP of at least 130 mm or less Continue Losartan 25 mg QD (3) GERD (gastroesophageal reflux disease): Code(s): K21.9 - Gastro-esophageal reflux disease without esophagitis Qualifiers: Esophagitis presence: without esophagitis Qualified Code(s): K21.9 - Gastro-esophageal reflux disease without esophagitis Plan: Upper GI series for further evaluation done in January 2021 revealed (+) mild reflux into the distal third of the esophagus Continue OTC Famotidine 20 mg BID PRN Could not tolerate Omeprazole 20 mg - patient reports frequent abdominal bloating, gas and occasional diarrhea while she was on Omeprazole Reinforced dietary restrictions (4) Osteoporosis: Code(s): M81.0 - Age-related osteoporosis without current pathological fracture Qualifiers: Osteoporosis type: age-related Presence of current pathological fracture: without current pathological fracture Qualified Code(s): M81.0 - Age-related osteoporosis without current pathological fracture Plan: BMD last done on 09/12/2021 revealed +9.9% increase in BMD in the left femur, with no significant change in BMD in the AP spine. This indicates (+) osteopenia based on the lowest T-score value of -2.1 in the femoral neck, which is improved from -2.4 a couple of years ago on 09/09/2019 Patient encouraged to continue her daily Vitamin-D and oral calcium supplements Patient stopped taking her Ibandronate last month as per previous;y instructed as she has been on the Rx for about 5 years now Will recheck her BMD early next year (2024) for follow up (5) IBS (irritable bowel syndrome): Code(s): K58.9 - Irritable bowel syndrome without diarrhea Qualifiers: Irritable bowel syndrome type: with constipation Qualified Code(s): K58.1 - Irritable bowel syndrome with constipation Plan: Symptoms are predominantly constipation Continue Miralax 17 gm QD although she states that she only takes a half dose every now and then as she gets diarrhea on a full dose and constipation when she does not take it consistently (6) Allergic rhinitis: Code(s): J30.9 - Allergic rhinitis, unspecified Qualifiers: Allergic rhinitis trigger: unspecified Allergic rhinitis seasonality: unspecified Qualified Code(s): J30.9 - Allergic rhinitis, unspecified Plan: Continue Fluticasone 50 mcg nasal spray QD PRN As she reports no improvement of her symptoms with Loratadine, will try switching her over to Fexofenadine 180 mg QD PRN (7) Pure hypercholesterolemia: Code(s): E78.00 - Pure hypercholesterolemia, unspecified Plan: Reinforced diet/exercise as tolerated/lose weight Will recheck labs and fasting lipids in 6 months for follow up Plan Follow up in 6 months Orders: Orders XR chest 2V Today J98.8 - Other specified respiratory disorders, R05.9 - Cough, unspecified Comprehensive [place]. Panel Fast 6 Months E78.00 - Pure hypercholesterolemia, unspecified Lipid Panel 6 Months E78.00 - Pure hypercholesterolemia, unspecified Complete Blood Count Auto Diff 6 Months D64.9 - Anemia, unspecified Vitamin D 25-OH Total 6 Months E55.9 - Vitamin D deficiency, unspecified TSH reflex Free T4 6 Months E78.00 - Pure hypercholesterolemia, unspecified UA CC w/rflx Micro + Cult 6 Months R30.0 - Dysuria Medications: New fexofenadine 180 mg PO DAILY 30 days PRN 30 tabs 1RF allergy symptoms Coding Level of Care Code Est Pt Level 4 (89034) Diagnoses Recurrent non-productive cough R05.8 Benign essential hypertension I10 Gastroesophageal reflux disease without esophagitis K21.9 Esophagitis presence: without esophagitis Age-related osteoporosis without current pathological fracture M81.0 Osteoporosis type: age-related Presence of current pathological fracture: without current pathological fracture Irritable bowel syndrome with constipation K58.1 Irritable bowel syndrome type: with constipation Allergic rhinitis, unspecified seasonality, unspecified trigger J30.9 Allergic rhinitis trigger: unspecified Allergic rhinitis seasonality: unspecified Pure hypercholesterolemia E78.00
== END 2023-04-03 12:29 | disposition home or self-care (01) ==
PROVIDERS: PCP Internal Medicine; Visit Provider Internal Medicine
DX: R05.8 Other specified cough (principal); I10 Essential (primary) hypertension; K21.9 Gastro-esophageal reflux disease without esophagitis; M81.0 Age-related osteoporosis without current pathological fracture; K58.1 Irritable bowel syndrome with constipation; J30.9 Allergic rhinitis, unspecified; E78.00 Pure hypercholesterolemia, unspecified
CPT/HCPCS: 99214

== ENCOUNTER 2023-04-04 13:28 | Outpatient (REF) | payer MEDICARE, SELFPAY ==
--- NOTE | ~2023-04-04 | XR_ITS ---
EXAMINATION: XR CHEST CLINICAL INFORMATION: Specified respiratory disorders. COMPARISON: 12/13/2020 chest. TECHNIQUE: 2 views of the chest were obtained. FINDINGS: The lungs are well inflated. Heart size is normal. Degenerative changes in the thoracic spine. No pleural effusion. No focal consolidation to suggest pneumonia. Degenerative changes in the thoracic spine. XR/XR chest 2V IMPRESSION: No evidence of pneumonia.
== END 2023-04-04 13:29 | disposition home or self-care (01) ==
LOC: HO.XRAY 13:28
PROVIDERS: PCP Internal Medicine; Visit Provider Internal Medicine
DX: J98.8 Other specified respiratory disorders (principal); R05.9 Cough, unspecified
CPT/HCPCS: 71046

== ENCOUNTER 2023-04-29 11:06 | Outpatient (AMB) | payer MEDICARE, SELFPAY ==
--- NOTE | 2023-04-29 11:23 | MHC.OFFWIV ---
Intake Vital Signs 04/29/23 11:35 BP 136/72 Blood Pressure Location Lt brachial Position Sitting Pulse Source Pulse Oximeter Pulse Oximetry (%) 99 Oxygen Delivery Method Room Air Intake Visit Reasons: Numb finger Patient Tobacco Use Status: Never used Tobacco Allergies Chloroquine Phosphate Allergy (Intermediate, Uncoded 04/29/23 11:23) Hives Medication List - Last Reconciled 04/29/23 by Gita Chapman, OUTPATIENT PHLEBOTOMIST-BC calcium carbonate (Wander-Mint) 520 mg PO DAILY cholecalciferol (vitamin D3) 25 mcg PO DAILY losartan 25 mg PO DAILY multivitamin 1 tab PO DAILY omega-3 fatty acids (Fish Oil Concentrate) 1,000 mg PO DAILY polyethylene glycol 3350 (Miralax) 17 grams PO DAILY HPI HPI Comments History of Present Illness Details Here today c/o tingling in R ring finger Reports this started today while grocery shopping. She was in her normal state of health until way home, felt sensation something was under her nail. Looked nothing there. Noted the skin to be white. After the white coloration of the skin, she noticed some purplish discoloration to the palmar surface of her finger. At this time, the only sx that remains is some mild discoloration on palmar surface This has never happened before - smoker - surgery + cold exposure PFSH Medical History Insomnia Pure hypercholesterolemia Allergic rhinitis Benign essential hypertension Osteoporosis Surgical History History of colonoscopy History of dilation and curettage History of tonsillectomy Family History Mother CHF (congestive heart failure) Diabetes Father Heart attack Brother Colon cancer Social History Housing: House Alcohol intake: current Alcohol intake frequency: does not drink Patient Tobacco Use Status: Never used Tobacco e-Cigarette/Vaping Use: Never Used Second Hand Smoke Exposure: No service: No Current occupational status: retired Cognitive needs: No Hearing needs: No Vision needs: Yes (Glasses) Review of Systems Const All systems reviewed & are unremarkable except as noted in HPI and below Physical Exam Const Other: awake alert NAD + radial pulse on R, + CMS, Cap refill WNL, Strength WNL. Ring finger palmar aspect is localized edema to PIP joint w/o warmth, mild prominence of the joint. No signs of infection. Neurovasc intact. Assessment & Plan Assessment & Plan (1) Finger pain, right: Comment: affecting R ring finger in the area of the PIP joint as her sx occured today for the first time and were self limiting, Advised watch and wait. She does have some mild discoloration around the PIP joint. If worsens or cont > 7 days, suggest imaging DDX cyst VS reynauds This note is constructed using voice recognition software. While every effort has been made to ensure accuracy in distributing clerk, still errors may have been included Sometimes, these errors may affect the content or meaning of the given sentence . Total time spent caring for the patient today was 30 minutes. This includes time spent before the visit reviewing the chart, time spent during the visit, and time spent after the visit on documentation Code(s): M79.644 - Pain in right finger(s) Plan . Coding Level of Care Code Est Pt Level 4 (12449) Diagnoses Finger pain, right M79.644
[2023-04-29 11:35] VITALS: BP 136/72; O2SAT 99
== END 2023-04-29 17:57 | disposition home or self-care (01) ==
PROVIDERS: PCP Internal Medicine; Visit Provider Nurse Practitioner Family
DX: M79.644 Pain in right finger(s) (principal)
CPT/HCPCS: 99214

== ENCOUNTER 2023-09-19 07:55 | Outpatient (REF) | payer MEDICARE, SELFPAY ==
[2023-09-19 11:11] LABS: MANUAL DIFF FLAG NO
[2023-09-19 11:14] LABS: Basophils Absolute Auto 0.1 X10*3/uL (0.0-0.2); Basophils Percent Auto 1.3 % (0-2); Eosinophils Absolute Auto 0.5 X10*3/uL (0.0-0.4); Eosinophils Percent Auto 8.7 % (0-4); Hematocrit 38.1 % (37.0-47.0); Imm Gran Abs Auto 0.01 X10*3/uL (0.00-0.03); Imm Gran Pct Auto 0.2 % (0.0-0.4); Lymphocytes Absolute Auto 1.2 X10*3/uL (1.2-4.9); Lymphocytes Percent Auto 23.3 % (20-40); Mean Corpuscular HGB Conc 31.5 g/dl (31.0-35.0); Mean Corpuscular Hemoglobin 28.4 pg (27.0-33.0); Mean Corpuscular Volume 90.1 fL (80.0-98.0); Mean Platelet Volume 12.2 fL (9.4-12.3); Monocytes Absolute Auto 0.7 X10*3/uL (0.1-1.2); Monocytes Percent Auto 12.7 % (2-11); Neutrophils Absolute Auto 2.8 x10*3/uL (2.0-8.3); Neutrophils Percent Auto 53.8 % (45-73); Platelet Count 156 X10*3/uL (160-400); Red Blood Count 4.23 X10*6/uL (4.20-5.50); Red Cell Distribution Width 13.3 % (11.0-16.0); White Blood Count 5.3 X10*3/uL (4.8-10.8)
[2023-09-19 11:19] LABS: Appearance Urine Clear; Color Urine Yellow; Glucose Urine UA Negative (Negative); Leukocyte Esterase Urine Trace (Negative); Nitrite Urine Negative (Negative); UMIC TRIGGER UACC YES; Urine Blood Negative (Negative); Urine Ketones Negative (Negative); Urine Protein Negative (Neg-Trace)
[2023-09-19 11:22] LABS: Bacteria Urine None Seen (None Seen); Hyaline Casts Urine 0-2 /LPF (0-2); RBC Urine 0-2 /HPF (0-2); Squamous Epithelial Cell Urine 0-2 /HPF (0-2); WBC Urine 0-5 /HPF (0-5)
[2023-09-19 11:59] LABS: Alanine Aminotransferase 16 U/L (0-31); Albumin Level 4.2 g/dL (3.5-5.0); Alkaline Phosphatase 49 U/L (39-117); Anion Gap 10 (12-20); Aspartate Amino Transferase 27 U/L (5-31); Bilirubin Total 0.4 mg/dL (0.0-1.0); Blood Urea Nitrogen 16 mg/dL (9-16); Calcium 9.9 mg/dL (8.4-10.2); Carbon Dioxide 29 mmol/L (22-29); Chloride 103 mmol/L (96-108); Cholesterol 178 mg/dL (<200); Estimated Glomerular Filt Rate > 60; Glucose Fasting 80 mg/dL (60-99); HDL Cholesterol 51 mg/dL (>40); LDL Cholesterol Calculated 110 mg/dL (<100); Sodium 138 mmol/L (135-145); Total Protein 7.3 g/dL (6.5-8.0); Triglycerides 85 mg/dL (<150)
[2023-09-19 12:22] LABS: TSH reflex Free T4 2.87 uIU/mL (0.32-4.0); Vitamin D 25-OH Total 67.5 ng/mL (>30)
== END 2023-09-19 07:56 | disposition home or self-care (01) ==
LOC: HO.WFDLDS 07:55
PROVIDERS: Visit Provider Internal Medicine
DX: D64.9 Anemia, unspecified (principal); E78.00 Pure hypercholesterolemia, unspecified; E55.9 Vitamin D deficiency, unspecified
CPT/HCPCS: 36415; 80053; 80061; 81001; 82306; 84443; 85025

== ENCOUNTER 2023-09-25 09:12 | Outpatient (AMB) | payer MEDICARE, SELFPAY ==
[2023-09-25 09:26] VITALS: BP 130/72; PULSE 73; O2SAT 97; BMI 20.3
--- NOTE | 2023-09-25 09:26 | A.OFFPC_ITS ---
Vital Signs 09/25/23 09:26 Height 5 ft 4 in Weight 118 lb BMI 20.3 BP 130/72 Blood Pressure Location Lt brachial Position Sitting Pulse 73 Pulse Source Pulse Oximeter Pulse Oximetry (%) 97 Oxygen Delivery Method Room Air Intake Visit Reasons: HTN, hyperlipidemia Allergies Chloroquine Phosphate Allergy (Intermediate, Uncoded 09/25/23 09:41) Hives Medication List - Last Reconciled 09/25/23 by Prem Blanchard MD calcium carbonate (Wander-Mint) 520 mg PO DAILY cholecalciferol (vitamin D3) 25 mcg PO DAILY losartan 25 mg PO DAILY multivitamin 1 tab PO DAILY polyethylene glycol 3350 (Miralax) 17 grams PO DAILY Tobacco use date assessed: 04/03/23 Fall risk assessment: 1 Fall in past year Last assessed Fall Risk: 09/25/23 Dental Screening Dental Screen Date: 09/25/23 Did you have a dental visit in the last 12 months?: Yes Did you have a dental problem in the last 6 months where you did not have access to dental care?: No Was dental information given to patient?: Patient has dentist HPI HTN, hyperlipidemia HPI Details Patient comes in today for her follow up visit States that she feels okay but still has the recurrent cough that she's had since the beginning of the year - feels that her cough is worse at night and she tends to cough up the phlegm that she feels accumulate in her throat overnight often in the morning States that she has no trouble swallowing or breathing but the cough can get annoying at times States that she has tried taking some OTC Loratadine in the past, thinking it was due to allergies but they have not helped at all She again denies any sore throat or fever; denies any significant nasal or sinus congestion Denies any headaches or dizziness Denies any chest pains, no SOB No nausea/vomiting, no abdominal pain No change in bowel habits noted Needs her prophylactic Bactrim DS Abx Rx refilled She had her follow up labs done last week - to discuss her results [facility] Medical History Insomnia Pure hypercholesterolemia Allergic rhinitis Benign essential hypertension Osteoporosis Surgical History History of colonoscopy History of dilation and curettage History of tonsillectomy Family History Mother CHF (congestive heart failure) Diabetes Father Heart attack Brother Colon cancer Social History Housing: House Alcohol intake: current Alcohol intake frequency: does not drink Patient Tobacco Use Status: Never used Tobacco Tobacco use type: Cigarette e-Cigarette/Vaping Use: Never Used Second Hand Smoke Exposure: No service: No Current occupational status: retired Cognitive needs: No Hearing needs: No Vision needs: Yes (Glasses) Questionnaire PHQ-9 Over the last 2 weeks, how often have you been bothered by any of the following problems? 1. Little interest or pleasure in doing things: several days 2. Feeling down, depressed, or hopeless: several days (mostly due to some family members' failing health lately) 3. Trouble falling or staying asleep, or sleeping too much: several days 4. Feeling tired or having little energy: several days 5. Poor appetite or overeating: not at all 6. Feeling bad about yourself - or that you are a failure or have let yourself or your family down: not at all 7. Trouble concentrating on things, such as reading the newspaper or watching television: not at all 8. Moving or speaking so slowly that other people could have noticed. Or the opposite - being so fidgety or restless that you have been moving around a lot more than usual: not at all 9. Thoughts that you would be better off or of hurting yourself in some way: not at all Total score: 4 Depression Screening Interpretation: Positive Depression Screening Follow-up: Existing condition and Declines treatment Depression Screening Done: Yes 27852 - PHQ-9 Billing: Yes Source: Developed by Drs. Palomo Cueva, Trish Nunez, Dawson Zheng and colleagues, with an educational bre from [employer]. Thrive Questionnaire Date Thrive assessed: 04/03/23 THRIVE Score: 0 AUDIT C Alcohol Use Questionnaire (AUDIT-C) 1. How often do you have a drink containing alcohol?: Monthly or less 2. How many drinks containing alcohol do you have on a typical day when you are drinking?: 1 or 2 3. How often do you have six or more drinks on one occasion?: Never Total Score: 1 Score Reviewed/Action Taken: Yes NIKHIL-7 AMB Questionnaire NIKHIL-7 Date NIKHIL - 7 assessed: 09/25/23 Feeling nervous, anxious, or on edge: 1 = Several days Not being able to stop or control worryin = Not at all Worrying too much about different things: 0 = Not at all Trouble relaxin = Not at all Being so restless that it is hard to sit still: 0 = Not at all Becoming easily annoyed or irritable: 0 = Not at all Feeling afraid as if something awful might happen: 0 = Not at all Total NIKHIL-7 score (0-4 normal; 5-9 mild; 10-14 moderate; 15-21 severe): 1 Source: Developed by Drs. Palomo Cueva, Trish Nunez, Dawson Zheng and colleagues, with an educational bre from [employer]. Review of Systems Const Reports difficulty sleeping, Reports fatigue (mild, at times), Denies fever(s) and Denies headache(s) ENT Denies dysphagia, Denies dizziness, Denies headache(s), Reports hearing loss, Denies odynophagia, Reports tinnitus (in both ears for past few months, more noticeable at night) and Denies sore throat Card Denies chest pain, Denies palpitations and Denies dyspnea Resp Denies chest congestion, Reports cough (recurrent for the past couple of months; non-productive), Denies excessive phlegm production, Denies dyspnea and Denies wheezing GI Denies abdominal pain, Denies constipation, Denies dysphagia, Denies heartburn, Denies diarrhea, Denies nausea, Denies odynophagia and Denies vomiting Denies difficulty voiding, Denies nocturia, Denies dysuria and Denies urinary urgency Musc Details: on and off mild pain over the heels bilaterally Reports numbness (on and off, in some of the toes of both feet) and Reports tingling (on and off, in some of the toes of both feet) Skin/Breast Denies rash Neuro Denies dizziness, Denies headache(s), Reports numbness (on and off, in some of the toes of both feet) and Reports tingling (on and off, in some of the toes of both feet) Psych Denies depression Endo Reports fatigue (mild, at times) and Denies palpitations Aller/Immun Denies wheezing Physical exam (Primary Care) Vital Signs: Last Vital Signs Pulse 73 09/25/23 09:26 BP 130/72 09/25/23 09:26 Pulse Ox 97 09/25/23 09:26 Oxygen Delivery Method Room Air 09/25/23 09:26 BMI result Body Mass Index 20.3 Tobacco/Smoking Status: Tobacco use Status Tobacco use date assessed 04/03/23 09/25/23 09:32 Patient Tobacco Use Status Never used Tobacco 09/25/23 09:32 Tobacco use type Cigarette 09/25/23 09:32 e-Cigarette/Vaping Use Never Used 09/25/23 09:32 PHQ-9: PHQ-9 Score PHQ-9: Total score 4 09/25/23 09:32 Depression Screening Interpretation: Positive Depression Screening Follow-up: Existing condition and Declines treatment Thrive Assessment: Date of Thrive Assessment Date Thrive assessed 04/03/23 09/25/23 09:32 Const General: no acute distress and alert HENMT Ears: TM's normal bilaterally and EAC's normal Throat: Yes posterior oropharynx normal and Yes tonsils normal (no TP congestion) Neck Neck: Yes no lymphadenopathy and Yes supple Thyroid: Thyroid normal Resp Auscultation: clear to auscultation bilaterally, no rales, rhonchi (occasional) throughout and no wheezes Cardio Rate: regular rate Rhythm: regular rhythm Heart sounds: no murmurs GI Palpation (GI): Soft to palpation and nontender Auscultation: normal bowel sounds General: Yes no CVA tenderness Back/Spine/Pelvis Back: no CVA tenderness Skin Rashes: no rashes Extrem General: Yes no clubbing, cyanosis or edema Results Reviewed Results Reviewed: Laboratory Tests 09/19/23 09/19/23 07:57 08:01 WBC 5.3 Hgb 12.0 Hct 38.1 Plt Count 156 L Sodium 138 Potassium 4.0 Creatinine 0.78 Estimated GFR > 60 Fasting Glucose 80 Calcium 9.9 AST 27 ALT 16 Triglycerides 85 Cholesterol 178 LDL Cholesterol, Calc 110 H HDL Cholesterol 51 25-OH Vitamin D Total 67.5 TSH 2.87 Ur Specific [place] 1.010 Urine Protein Negative Urine Glucose (UA) Negative Urine Blood Negative Urine Nitrite Negative Ur Leukocyte Esterase Trace H Assessment and Plan Assessment & Plan (1) Recurrent cough: Code(s): R05.8 - Other specified cough Plan: Patient continues to c/o recurrent cough, which has been going on for several months now; also relates (+) phlegm at times, usually in the morning She has tried OTC antihistamines without any relief Chest x-rays done in March 2023 was negative Her eosinophil counts on her CBC has been noted to be increasing since last year so her cough could have some hypersensitivity or allergic component but she also has GERD as noted on her upper GI done previously Will refer her to pulmonary for further evaluation and management1 (2) Recurrent non-productive cough: Code(s): R05.8 - Other specified cough Plan: Lung auscultation today revealed (+) scattered rhonchi with occasional faint expiratory wheezing bilaterally Discussed that it is possible that she may have been dealing with some respiratory infection recently that has continued to linger Will send her for chest x-rays AVINASH for further evaluation Advised that we will reach back out to her with the appropriate recommendations if her x-ray findings reveal anything that would require further management or treatment (3) Benign essential hypertension: Code(s): I10 - Essential (primary) hypertension Plan: Reinforced low sodium diet - goal is systolic BP of at least 130 mm or less Continue Losartan 25 mg QD (4) GERD (gastroesophageal reflux disease): Code(s): K21.9 - Gastro-esophageal reflux disease without esophagitis Qualifiers: Esophagitis presence: without esophagitis Qualified Code(s): K21.9 - Gastro-esophageal reflux disease without esophagitis Plan: Upper GI series done in January 2021 revealed (+) mild reflux into the distal third of the esophagus Reinforced dietary restrictions in GERD Continue OTC Famotidine 20 mg BID PRN She could not tolerate Omeprazole (20 mg) - patient reports experiencing frequent abdominal bloating, gas and occasional diarrhea while she was on Omeprazole (5) Osteoporosis: Code(s): M81.0 - Age-related osteoporosis without current pathological fracture Qualifiers: Osteoporosis type: age-related Presence of current pathological fracture: without current pathological fracture Qualified Code(s): M81.0 - Age- related osteoporosis without current pathological fracture Plan: BMD last done on 09/12/2021 revealed +9.9% increase in BMD in the left femur, with no significant change in BMD in the AP spine This indicates that she is now osteopenic (as opposed to osteoporosis previously) based on the lowest T-score value of -2.1 in the femoral neck, which has improved from her T score of -2.4 a couple of years ago on 09/09/2019 Patient is encouraged to continue taking her daily Vitamin-D and oral calcium supplements She stopped taking her Ibandronate earlier this year as per previously instructed as she has been on the Rx for about 5 years now Will recheck her BMD early next year (2024) for follow up (6) IBS (irritable bowel syndrome): Code(s): K58.9 - Irritable bowel syndrome without diarrhea Qualifiers: Irritable bowel syndrome type: with constipation Qualified Code(s): K58.1 - Irritable bowel syndrome with constipation Plan: States that her symptoms are predominantly constipation Continue Miralax 17 gm QD although she states that she only takes a half dose every now and then as she gets diarrhea on a full dose and constipation when she does not take it consistently (7) Allergic rhinitis: Code(s): J30.9 - Allergic rhinitis, unspecified Qualifiers: Allergic rhinitis trigger: unspecified Allergic rhinitis seasonality: unspecified Qualified Code(s): J30.9 - Allergic rhinitis, unspecified Plan: Continue Fluticasone 50 mcg nasal spray QD PRN Continue Fexofenadine 180 mg QD PRN - she has taken Loratadine in the past with no relief (8) Pure hypercholesterolemia: Code(s): E78.00 - Pure hypercholesterolemia, unspecified Plan: Results of her labs done last week reviewed and discussed with patient Reinforced diet/exercise as tolerated/lose weight Will recheck her labs and fasting lipids in 6 months for follow up Plan Follow up in 6 months Orders: Orders Comprehensive Rosie. Panel Fast 6 Months E78.00 - Pure hypercholesterolemia, unspecified Lipid Panel 6 Months E78.00 - Pure hypercholesterolemia, unspecified Complete Blood Count Auto Diff 6 Months D64.9 - Anemia, unspecified Referrals Pulmonology Referral R05.8 - Other specified cough Medications: Refilled sulfamethoxazole-trimethoprim 800-160 mg (Bactrim DS) Take 1 tablet orally x 1 dose AFTER sexual intercourse; 30 days 30 tabs 3RF for prevention of UTI Coding Level of Care Code Est Pt Level 4 (99615) Complex EM visit Add On G2211 Diagnoses Recurrent cough R05.8 Recurrent non-productive cough R05.8 Benign essential hypertension I10 Gastroesophageal reflux disease without esophagitis K21.9 Esophagitis presence: without esophagitis Age-related osteoporosis without current pathological fracture M81.0 Osteoporosis type: age-related Presence of current pathological fracture: without current pathological fracture Irritable bowel syndrome with constipation K58.1 Irritable bowel syndrome type: with constipation Allergic rhinitis, unspecified seasonality, unspecified trigger J30.9 Allergic rhinitis trigger: unspecified Allergic rhinitis seasonality: unspecified Pure hypercholesterolemia E78.00
== END 2023-09-25 10:04 | disposition home or self-care (01) ==
PROVIDERS: PCP Internal Medicine; Visit Provider Internal Medicine
DX: R05.8 Other specified cough (principal); I10 Essential (primary) hypertension; K21.9 Gastro-esophageal reflux disease without esophagitis; M81.0 Age-related osteoporosis without current pathological fracture; K58.1 Irritable bowel syndrome with constipation; J30.9 Allergic rhinitis, unspecified; E78.00 Pure hypercholesterolemia, unspecified
CPT/HCPCS: 99214; G2211

== ENCOUNTER 2023-10-03 13:34 | Outpatient (AMB) | payer MEDICARE, SELFPAY ==
--- NOTE | 2023-10-03 13:35 | MHC.OFFVIS ---
Vital Signs 10/03/23 13:36 Height 5 ft 4 in Weight 118 lb 6 oz BMI 20.3 BP 114/62 Blood Pressure Location Rt brachial Position Sitting Pulse 66 Pulse Source Pulse Oximeter Pulse Oximetry (%) 99 Oxygen Delivery Method Room Air Intake Visit Reasons: Cough Allergies Chloroquine Phosphate Allergy (Intermediate, Uncoded 10/03/23 13:38) Hives HPI HPI Cough: Details: Carole is a pleasant 68 year old female, never smoker, with underlying HTN, GERD, and osteoporosis. She was referred by PCP for pulmonary evaluation for chronic cough. She reports cough has been present since the beginning of the year, productive in the morning then dry throughout the day. She denies being able to expectorate, denies chest congestion. Denies dyspnea, chest tightness or wheezing. She has been trialed antihistamines with no relief. PCP noted increasing eosinophils and questioned an allergic component to cough. Prior CXR unremarkable. She reports severe seasonal allergies as a child, previously maintained on allergen immunotherapy. She notes allergy symptoms have been mild over the last few years, having post nasal drip occasionally. Denies any recent allergy testing. She does have a cat at home. She denies prior h/o asthma. She denies any pertinent family history. She denies any occupational exposures. She does have GERD, however symptoms are mild and infrequent. [facility] Medical History Insomnia Pure hypercholesterolemia Allergic rhinitis Benign essential hypertension Osteoporosis Surgical History History of colonoscopy History of dilation and curettage History of tonsillectomy Family History Mother CHF (congestive heart failure) Diabetes Father Heart attack Brother Colon cancer Social History Housing: House Alcohol intake: current Alcohol intake frequency: does not drink Patient Tobacco Use Status: Never used Tobacco Tobacco use type: Cigarette e-Cigarette/Vaping Use: Never Used Second Hand Smoke Exposure: No service: No Current occupational status: retired Cognitive needs: No Hearing needs: No Vision needs: Yes (Glasses) Review of Systems Const Denies chills, Denies excessive sweating, Denies fever(s), Denies headache(s) and Denies night sweats Eyes Denies dry eyes, Denies irritation and Denies itchy eyes ENT Reports Normal hearing present, Denies headache(s), Denies nasal congestion, Denies nasal discharge and Denies sore throat Card Denies chest pain, Denies chest pain at rest, Denies chest pain with activity, Denies claudication, Denies leg edema, Denies dyspnea, Denies dyspnea on exertion, Denies orthopnea and Denies paroxysmal nocturnal dyspnea Resp Denies chest congestion, Denies excessive phlegm production, Denies pain on inspiration, Denies pain with cough, Denies dyspnea, Denies dyspnea on exertion, Denies stridor and Denies wheezing Musc Denies myalgias Neuro Reports Normal hearing present and Denies headache(s) Endo Denies excessive sweating Gumaro/Lymph Denies lymphadenopathy Aller/Immun Denies itchy eyes, Denies seasonal rhinorrhea and Denies wheezing Physical Exam Vital Signs: Last Vital Signs Pulse 66 10/03/23 13:36 BP 114/62 10/03/23 13:36 Pulse Ox 99 10/03/23 13:36 Oxygen Delivery Method Room Air 10/03/23 13:36 BMI result Body Mass Index 20.3 Const General: cooperative, healthy appearing, comfortable, no acute distress, well developed and alert Orientation/consciousness: patient oriented x3 Limitations: no limitations HEENT Head: Yes normal to inspection, Yes normocephalic and Yes atraumatic Ears: hearing grossly normal bilaterally and external ears normal Eyes General: appearance normal, both eyes and all related structures Eyelids: Yes eyelids normal Sclerae: sclerae normal EOM: EOMs intact bilaterally Neck Neck: Yes normal visual inspection and Yes no lymphadenopathy Lymphatic: no lymphadenopathy noted Chest Chest palpation & inspection: normal inspection of the chest Resp Effort & Inspection: normal respiratory effort, able to speak in complete sentences, no audible wheezes, no cough, no stridor, not tachypneic, no tripod positioning and no use of accessory muscles Auscultation: diminished lung sounds Cardio Jugular venous distension: no JVD Rate: regular rate Rhythm: regular rhythm Skin Other: warm, dry General skin exam: no rashes or lesions noted Neuro General: patient oriented x3 Cranial nerves: Yes Normal hearing present Cognition (Neuro): normal cognition Gait exam (Neuro): Normal gait present Extrem General: Yes normal to inspection, Yes capillary refill normal, Yes no clubbing, cyanosis or edema and Yes no pedal edema Psych Appearance: grossly normal and well kempt Speech and movement: Normal speech and movement present and Clear speech present Affect: normal affect Attitude: cooperative Thought process: Normal thought process present Thought content: Normal thought content present Insight: Good insight present (Psych) Judgement: Good judgement present (Psych) Results Reviewed Results Reviewed: [address] [address] XRay Report Signed Patient: Carole Alba MR#: [id number] : 1955 Acct:[id number] Age/Sex: 67 / F ADM Date: 04/04/23 Loc: [facility] Attending Dr: Prem Blanchard MD Ordering Physician: Prem Blanchard MD Date of Service: 04/04/23 Procedure(s): XR chest 2V Accession Number(s): [id number] cc: Prem Blanchard MD~ EXAMINATION: XR CHEST CLINICAL INFORMATION: Specified respiratory disorders. COMPARISON: 12/13/2020 chest. TECHNIQUE: 2 views of the chest were obtained. FINDINGS: The lungs are well inflated. Heart size is normal. Degenerative changes in the thoracic spine. No pleural effusion. No focal consolidation to suggest pneumonia. Degenerative changes in the thoracic spine. XR/XR chest 2V IMPRESSION: No evidence of pneumonia. Dictated By: Isabel Farooq MD Signed By: <Electronically signed by Isabel Farooq MD in OV> 04/07/23 1251 DD/ 1340 TD/TT: Spool Sorter: Assessment & Plan Assessment & Plan (1) Chronic cough: Code(s): R05.3 - Chronic cough Category: Medical (2) Environmental allergies: Code(s): Z91.09 - Other allergy status, other than to drugs and biological substances Category: Medical Plan Carole presents for pulmonary evaluation for chronic cough, unclear etiology. Prior CXR unremarkable, will send for chest CT. Will also send for PFT and trial albuterol PRN. Patient with increasing eosinophil count, will send for RAST to assess for an allergic component. All questions were answered and patient is in agreement of plan. Will follow up to review results or sooner if needed. Orders: Orders Immunoglobulin E Today Z91.09 - Other allergy status, other than to drugs and biological substances PFT pulmonary function test Today R05.3 - Chronic cough CT chest wo IV con Today R05.3 - Chronic cough Resp Allergy Profile Region I Today Z91.09 - Other allergy status, other than to drugs and biological substances Medications: New albuterol sulfate 90 mcg/actuation 2 puffs inhalation Q4-6H PRN 1 ea 0RF shortness of breath or wheezing Coding Level of Care Code New Pt Level 4 (74069) Diagnoses Chronic cough R05.3 Environmental allergies Z91.09
[2023-10-03 13:36] VITALS: BP 114/62; PULSE 66; O2SAT 99; BMI 20.3
== END 2023-10-03 14:01 | disposition home or self-care (01) ==
PROVIDERS: PCP Internal Medicine; Referring Provider Internal Medicine; Visit Provider Nurse Practitioner Family
DX: R05.3 Chronic cough (principal); Z91.09 Other allergy status, other than to drugs and biological substances
CPT/HCPCS: 99204

== ENCOUNTER → 2023-10-03 13:34 | Outpatient (BNVA) | payer MEDICARE, SELFPAY | PROVIDERS: PCP Internal Medicine; Referring Provider Internal Medicine; Visit Provider Nurse Practitioner Family | DX: R05.3 Chronic cough (principal); Z91.09 Other allergy status, other than to drugs and biological substances | CPT/HCPCS: 99202 ==

== ENCOUNTER 2023-10-08 14:22 | Outpatient (REF) | payer MEDICARE, SELFPAY ==
[2023-10-09 16:57] LABS: Class Alternaria alternata 0; Class Aspergillus fumigatus 0; Class Bermuda Grass 0/1; Class Birch 2; Class Cat Dander 2; Class Cladosporium herbarum 0; Class Cockroach 0/1; Class Common Ragweed 3; Class Cottonwood 0/1; Class Derm. pterony 2; Class Dermatophagoides farinae 2; Class Dog Dander 0; Class Elm 0; Class Maple Box Elder 1; Class Mountain Cedar 0; Class Mouse Urine Protein 0; Class Mugwort 1; Class Oak 1; Class Penicillium crysogenum 0; Class Rough Pigweed 0; Class Sheep Sorrel 0; Class Sycamore 0; Class Timothy Grass 2; Class Walnut Tree 0/1; Class White Ash 0; Class White Mulberry 0; D002 - IgE D farinae 2.33 kU/L; E001 - IgE Cat Dander 2.07 kU/L; E005 - IgE Dog Dander <0.10 kU/L; E072-IgE Mouse Urine <0.10 kU/L; G002 IgE Bermuda Grass 0.13 kU/L; G006 - IgE Timothy Grass 0.81 kU/L; I006-IgE Cockroach, German 0.11 kU/L; Immunoglobulin E 223 kU/L (<OR=114); Immunoglobulin E 225 kU/L (<OR=114); M001 IgE Penicillium chrysogen <0.10 kU/L; M002 - IgE Cladosporium herbar <0.10 kU/L; M003 - IgE Aspergillus fumigat <0.10 kU/L; M006 - IgE Alternaria alternat <0.10 kU/L; T001 IgE Maple/Box Elder 0.38 kU/L; T003 IgE Common Silver Birch 1.26 kU/L; T006 - IgE Cedar, Mountain <0.10 kU/L; T007 - IgE Oak, White 0.37 kU/L; T008 IgE Elm, American <0.10 kU/L; T010 - IgE Walnut 0.12 kU/L; T011 - IgE Maple Leaf Sycamore <0.10 kU/L; T014 - IgE Cottonwood 0.13 kU/L; T015 - IgE Ash, White <0.10 kU/L; T070 - IgE White Mulberry <0.10 kU/L; W006 - IgE Mugwort 0.66 kU/L; W014 IgE Pigweed, Common <0.10 kU/L; W018 IgE Sheep Sorrel <0.10 kU/L
== END 2023-10-08 14:23 | disposition home or self-care (01) ==
LOC: HO.WFDLDS 14:22
PROVIDERS: Visit Provider Nurse Practitioner Family
DX: Z91.09 Other allergy status, other than to drugs and biological substances (principal)
CPT/HCPCS: 36415; 82785; 86003

== ENCOUNTER 2023-11-12 16:30 | Outpatient (REF) | payer MEDICARE, SELFPAY ==
--- NOTE | ~2023-11-12 | CT_ITS ---
EXAMINATION: CT CHEST WITHOUT CONTRAST CLINICAL INFORMATION: Chronic cough. COMPARISON: No prior CT exam. Chest x-ray 04/04/2023. TECHNIQUE: Multidetector volumetric CT imaging of the chest was done. Axial MIP volume rendering provided. Sagittal and coronal reformatted images were obtained. This CT examination was performed using dose optimization techniques as appropriate, variously including the following: *Automated exposure control *Adjustment of mA and/or kV according to patient size (this includes techniques or standardized protocols for targeted exams where dose is matched to indication/reason for exam; i.e. extremities or head) *Use of iterative reconstruction technique DLP: 97 mGy-cm FINDINGS: PULMONARY NODULES: -There are a few scattered 1-3 mm calcified granulomata, benign. -3 mm nodule anterior right apex (series 5, image 74). -No suspicious or enlarging nodules. LUNGS: -The lungs are clear bilaterally. There are no abnormal consolidative or groundglass type opacities. -No interstitial lung disease. -There is no effusion or pleural abnormality. -No pneumothorax. -Small airways appear normal. -Central airways are normal. MEDIASTINUM: -The mediastinum is normal. CORONARY ARTERY CALCIFICATION: Moderate LAD calcifications. PLEURA: There is no pleural effusion. No pleural mass or thickening. AXILLA/CHEST WALL: No lymphadenopathy. No masses. UPPER ABDOMEN: Unremarkable. OSSEOUS STRUCTURES: No suspicious lytic or blastic bone lesion. No acute findings. Mild spinal degenerative changes noted. CT/CT chest wo IV con IMPRESSION: 1. No active lung disease identified. The lungs are clear. No etiology for cough identified. The small airways are normal. 2. 3 mm nonspecific nodule anterior right apex, risk of malignancy less than 1%. One-year follow-up recommended in a high-risk patient only. 3. Additional ancillary findings as discussed in the body of the report. Fleischner guidelines were followed. Electronically signed by: Reji Oscar MD 01/16/2024 12:22 PM MARK
== END 2023-11-12 16:31 | disposition home or self-care (01) ==
LOC: HO.CT 16:30
PROVIDERS: PCP Internal Medicine; Visit Provider Nurse Practitioner Family
DX: R05.3 Chronic cough (principal)
CPT/HCPCS: 71250

== ENCOUNTER → 2023-11-12 16:31 | Outpatient (BNV) | payer MEDICARE, SELFPAY | PROVIDERS: PCP Internal Medicine; Visit Provider Radiology Diagnostic Radiology | DX: J84.10 Pulmonary fibrosis, unspecified (principal) | CPT/HCPCS: 71250 ==

== ENCOUNTER 2024-01-20 14:40 | Outpatient (REF) | payer MEDICARE, SELFPAY ==
[2024-01-20 10:06] VITALS: PULSE 69; O2SAT 100
--- NOTE | 2024-01-20 14:45 | PFT_ITS ---
Flows: FEV1: 101 % of predicted at 2.25 L FVC: 100 % of predicted at 2.88 L FEV1/FVC: 78 % Bronchodilator response: Absent Volumes: Total lung capacity: 117 % of predicted at 5.82 L Residual volume: 152 % of predicted at 2.94 L Slow vital capacity: 95 % of predicted at 2.88 L Expiratory reserve volume: 0 % of predicted at 0 L Diffusion capacity: Normal Impression: No obstructive or restrictive ventilatory defect. No bronchodilator response. Increased residual volume suggests air trapping. MTDD
== END 2024-01-20 14:41 | disposition home or self-care (01) ==
LOC: HO.RESP 14:40
PROVIDERS: Visit Provider Nurse Practitioner Family
DX: R05.3 Chronic cough (principal)
CPT/HCPCS: 94010; 94640; 94727; 94729

== ENCOUNTER → 2024-01-20 14:45 | Outpatient (BNV) | payer MEDICARE, SELFPAY | PROVIDERS: Visit Provider Internal Medicine Pulmonary Disease | DX: R05.3 Chronic cough (principal) | CPT/HCPCS: 94060; 94727; 94729 ==

== ENCOUNTER 2024-01-27 09:58 | Outpatient (AMB) | payer MEDICARE, SELFPAY ==
--- NOTE | 2024-01-27 10:14 | A.OFFVIS_ITS ---
Vital Signs 01/27/24 10:15 Height 5 ft 4 in Weight 121 lb 4 oz BMI 20.8 BP 130/74 Blood Pressure Location Lt brachial Position Sitting Pulse 58 Pulse Source Pulse Oximeter Pulse Oximetry (%) 100 Oxygen Delivery Method Room Air Intake Visit Reasons: Cough Allergies Chloroquine Phosphate Allergy (Intermediate, Uncoded 01/27/24 10:17) Hives HPI HPI Cough: Details: Carole is a pleasant 68 year old female, never smoker, with underlying HTN, GERD, and osteoporosis. She was initially referred by PCP for pulmonary evaluation for chronic cough which has been less frequent. Denies dyspnea, chest tightness or wheezing. She does report significant post nasal drip which may be contributing to cough and not using any OTC medications. PCP noted increasing eosinophils and questioned an allergic component to cough. Today she presents to review RAST, PFT and chest CT. She denies any visits to urgent care or hospitalizations since the last visit. [facility] Medical History Insomnia Pure hypercholesterolemia Allergic rhinitis Benign essential hypertension Osteoporosis Surgical History History of colonoscopy History of dilation and curettage History of tonsillectomy Family History Mother CHF (congestive heart failure) Diabetes Father Heart attack Brother Colon cancer Social History Housing: House Alcohol intake: current Alcohol intake frequency: does not drink Patient Tobacco Use Status: Never used Tobacco Tobacco use type: Cigarette e-Cigarette/Vaping Use: Never Used Second Hand Smoke Exposure: No service: No Current occupational status: retired Cognitive needs: No Hearing needs: No Vision needs: Yes (Glasses) Review of Systems Const Denies chills, Denies excessive sweating, Denies fever(s), Denies headache(s) and Denies night sweats Eyes Denies dry eyes, Denies irritation and Denies itchy eyes ENT Reports Normal hearing present, Denies headache(s), Denies nasal congestion, Denies nasal discharge, Reports post nasal drip and Denies sore throat Card Denies chest pain, Denies chest pain at rest, Denies chest pain with activity, Denies claudication, Denies leg edema, Denies dyspnea, Denies dyspnea on exertion, Denies orthopnea and Denies paroxysmal nocturnal dyspnea Resp Denies chest congestion, Denies excessive phlegm production, Denies pain on inspiration, Denies pain with cough, Denies dyspnea, Denies dyspnea on exertion, Denies stridor and Denies wheezing Musc Denies myalgias Neuro Reports Normal hearing present and Denies headache(s) Endo Denies excessive sweating Gumaro/Lymph Denies lymphadenopathy Aller/Immun Denies itchy eyes, Denies seasonal rhinorrhea and Denies wheezing Physical Exam Vital Signs: Last Vital Signs Pulse 58 01/27/24 10:15 BP 130/74 01/27/24 10:15 Pulse Ox 100 01/27/24 10:15 Oxygen Delivery Method Room Air 01/27/24 10:15 BMI result Body Mass Index 20.8 Const General: cooperative, healthy appearing, comfortable, no acute distress, well developed and alert Orientation/consciousness: patient oriented x3 Limitations: no limitations HEENT Head: Yes normal to inspection, Yes normocephalic and Yes atraumatic Ears: hearing grossly normal bilaterally and external ears normal Eyes General: appearance normal, both eyes and all related structures Eyelids: Yes eyelids normal Sclerae: sclerae normal EOM: EOMs intact bilaterally Neck Neck: Yes normal visual inspection and Yes no lymphadenopathy Lymphatic: no lymphadenopathy noted Chest Chest palpation & inspection: normal inspection of the chest Resp Effort & Inspection: normal respiratory effort, able to speak in complete sentences, no audible wheezes, no cough, no stridor, not tachypneic, no tripod positioning and no use of accessory muscles Auscultation: clear to auscultation bilaterally Cardio Jugular venous distension: no JVD Rate: regular rate Rhythm: regular rhythm Skin Other: warm, dry General skin exam: no rashes or lesions noted Neuro General: patient oriented x3 Cranial nerves: Yes Normal hearing present Cognition (Neuro): normal cognition Gait exam (Neuro): Normal gait present Extrem General: Yes normal to inspection, Yes capillary refill normal, Yes no clubbing, cyanosis or edema and Yes no pedal edema Psych Appearance: grossly normal and well kempt Speech and movement: Normal speech and movement present and Clear speech present Affect: normal affect Attitude: cooperative Thought process: Normal thought process present Thought content: Normal thought content present Insight: Good insight present (Psych) Judgement: Good judgement present (Psych) Assessment & Plan Assessment & Plan (1) Chronic cough: Code(s): R05.3 - Chronic cough Category: Medical (2) Environmental allergies: Code(s): Z91.09 - Other allergy status, other than to drugs and biological substances Category: Medical Plan RAST + for multiple environmental allergies, IgE 225. Reviewed PFT which revealed no obstructive or restrictive ventilatory defect. No bronchodilator response. Increased residual volume suggests air trapping. This could be suggestive of asthma. Discussed empirically trialing an inhaler however would like to hold off and trial nasal spray/antihistamines to see if improvements in PND will improve cough. CT reviewed and unremarkable other than a right apex 3 mm nodule as well as scattered 1-3 mm granulomas. Will repeat in one year to assess stability. All questions were answered and patient is in agreement of plan. Will follow up in 6-8 weeks or sooner if needed. Orders: Orders CT chest wo IV con 9 Months R91.1 - Solitary pulmonary nodule Medications: New fluticasone propionate 50 mcg/actuation (Flonase Allergy Relief) administer into each nostril 2 sprays intranasal DAILY 16 grams 3RF Refilled fexofenadine 180 mg PO DAILY 30 days PRN 30 tabs 4RF allergy symptoms Coding Level of Care Code Est Pt Level 4 (73094) Diagnoses Chronic cough R05.3 Environmental allergies Z91.09
[2024-01-27 10:15] VITALS: BP 130/74; PULSE 58; O2SAT 100; BMI 20.8
== END 2024-01-27 10:46 | disposition home or self-care (01) ==
PROVIDERS: PCP Internal Medicine; Visit Provider Nurse Practitioner Family
DX: R05.3 Chronic cough (principal); Z91.09 Other allergy status, other than to drugs and biological substances
CPT/HCPCS: 99214

== ENCOUNTER → 2024-01-27 09:58 | Outpatient (BNVA) | payer MEDICARE, SELFPAY | PROVIDERS: PCP Internal Medicine; Visit Provider Nurse Practitioner Family | DX: R05.3 Chronic cough (principal); Z91.09 Other allergy status, other than to drugs and biological substances | CPT/HCPCS: 99212 ==

== ENCOUNTER 2024-03-10 10:03 | Outpatient (AMB) | payer MEDICARE, SELFPAY ==
--- NOTE | 2024-03-10 10:05 | A.OFFVIS_ITS ---
Vital Signs 03/10/24 10:06 Height 5 ft 4 in Weight 121 lb BMI 20.8 BP 112/60 Blood Pressure Location Rt brachial Position Sitting Pulse 72 Pulse Oximetry (%) 100 Oxygen Delivery Method Room Air Intake Visit Reasons: copd Neurophysiological Technician Required: No Whiteprinting Machine Operator: Whiteprinting Machine Operator offered & declined Accompanied by: Self / Same As Patient Allergies Chloroquine Phosphate Allergy (Intermediate, Uncoded 03/10/24 10:11) Hives Medication List - Last Reconciled 03/10/24 by Tiara Vargas LPN albuterol sulfate 90 mcg/actuation 2 puffs inhalation Q4-6H PRN calcium carbonate (Wander-Mint) 520 mg PO DAILY cholecalciferol (vitamin D3) 25 mcg PO DAILY fexofenadine 180 mg PO DAILY PRN 30 days fluticasone propionate 50 mcg/actuation (Flonase Allergy Relief) 2 sprays intranasal DAILY losartan 25 mg PO DAILY multivitamin 1 tab PO DAILY polyethylene glycol 3350 (Miralax) 17 grams PO DAILY sulfamethoxazole-trimethoprim 800-160 mg (Bactrim DS) Take 1 tablet orally x 1 dose AFTER sexual intercourse; 30 days HPI HPI copd: Details: Carole is a pleasant 68 year old female, never smoker, with underlying HTN, GERD, and osteoporosis. She was initially referred by PCP for pulmonary evaluation for chronic cough, occasionally productive with clear sputum. Denies dyspnea, chest tightness or wheezing. At the last visit, she was started on Flonase with improvements in post nasal drip however has had no change in cough. Prior PFT did not reveal an obstructive defect however lung volumes were increased, suggestive of air trapping. We had discussed an inhaler but patient had declined at that time. Today she continues with cough and does note that reflux has been more persistent, questioning silent reflux contributing to cough. She denies prior trial of PPI. She denies any visits to urgent care or hospitalizations since the last visit. [facility], [facility] Medical History Insomnia Pure hypercholesterolemia Allergic rhinitis Benign essential hypertension Osteoporosis Surgical History History of colonoscopy History of dilation and curettage History of tonsillectomy Family History Mother CHF (congestive heart failure) Diabetes Father Heart attack Brother Colon cancer Social History Housing: House Alcohol intake: current Alcohol intake frequency: does not drink Patient Tobacco Use Status: Never used Tobacco Tobacco use type: Cigarette e-Cigarette/Vaping Use: Never Used Second Hand Smoke Exposure: No service: No Current occupational status: retired Cognitive needs: No Hearing needs: No Vision needs: Yes (Glasses) Review of Systems Const Denies chills, Denies excessive sweating, Denies fever(s), Denies headache(s) and Denies night sweats Eyes Denies dry eyes, Denies irritation and Denies itchy eyes ENT Reports Normal hearing present, Denies headache(s), Denies nasal congestion, Denies nasal discharge, Reports post nasal drip and Denies sore throat Card Denies chest pain, Denies chest pain at rest, Denies chest pain with activity, Denies claudication, Denies leg edema, Denies dyspnea, Denies dyspnea on exertion, Denies orthopnea and Denies paroxysmal nocturnal dyspnea Resp Denies chest congestion, Reports cough, Denies excessive phlegm production, Denies pain on inspiration, Denies pain with cough, Denies dyspnea, Denies dyspnea on exertion, Denies stridor and Denies wheezing Musc Denies myalgias Neuro Reports Normal hearing present and Denies headache(s) Endo Denies excessive sweating Gumaro/Lymph Denies lymphadenopathy Aller/Immun Denies itchy eyes, Denies seasonal rhinorrhea and Denies wheezing Physical Exam Vital Signs: Last Vital Signs Pulse 72 03/10/24 10:06 BP 112/60 03/10/24 10:06 Pulse Ox 100 03/10/24 10:06 Oxygen Delivery Method Room Air 03/10/24 10:06 BMI result Body Mass Index 20.8 Const General: cooperative, healthy appearing, comfortable, no acute distress, well developed and alert Orientation/consciousness: patient oriented x3 Limitations: no limitations HEENT Head: Yes normal to inspection, Yes normocephalic and Yes atraumatic Ears: hearing grossly normal bilaterally and external ears normal Eyes General: appearance normal, both eyes and all related structures Eyelids: Yes eyelids normal Sclerae: sclerae normal EOM: EOMs intact bilaterally Neck Neck: Yes normal visual inspection and Yes no lymphadenopathy Lymphatic: no lymphadenopathy noted Chest Chest palpation & inspection: normal inspection of the chest Resp Effort & Inspection: normal respiratory effort, able to speak in complete sentences, no audible wheezes, no cough, no stridor, not tachypneic, no tripod positioning and no use of accessory muscles Auscultation: clear to auscultation bilaterally Cardio Jugular venous distension: no JVD Rate: regular rate Rhythm: regular rhythm Skin Other: warm, dry General skin exam: no rashes or lesions noted Neuro General: patient oriented x3 Cranial nerves: Yes Normal hearing present Cognition (Neuro): normal cognition Gait exam (Neuro): Normal gait present Extrem General: Yes normal to inspection, Yes capillary refill normal, Yes no clubbing, cyanosis or edema and Yes no pedal edema Psych Appearance: grossly normal and well kempt Speech and movement: Normal speech and movement present and Clear speech present Affect: normal affect Attitude: cooperative Thought process: Normal thought process present Thought content: Normal thought content present Insight: Good insight present (Psych) Judgement: Good judgement present (Psych) Assessment & Plan Assessment & Plan (1) Chronic cough: Code(s): R05.3 - Chronic cough Category: Medical (2) Environmental allergies: Code(s): Z91.09 - Other allergy status, other than to drugs and biological substances Category: Medical (3) GERD (gastroesophageal reflux disease): Code(s): K21.9 - Gastro-esophageal reflux disease without esophagitis Category: Medical Qualifiers: Esophagitis presence: without esophagitis Qualified Code(s): K21.9 - Gastro-esophageal reflux disease without esophagitis Plan Will empirically trial omeprazole for silent reflux contributing to cough. Advised to continue Flonase as she notes improvements in post nasal drip. Will follow up in 8-10 weeks or sooner if needed. All questions were answered and patient is in agreement of plan. Medications: New omeprazole 20 mg PO DAILY 30 caps 2RF Coding Level of Care Code Est Pt Level 4 (40556) Diagnoses Chronic cough R05.3 Environmental allergies Z91.09 Gastroesophageal reflux disease without esophagitis K21.9 Esophagitis presence: without esophagitis
[2024-03-10 10:06] VITALS: BP 112/60; PULSE 72; O2SAT 100; BMI 20.8
--- OUTSIDE RECORDS SUMMARY | 2024-03-10 11:00 | XMS_ITS | Clinical Summary ---
Author Organization [facility] Address [address] [place] [address] Care Team Providers Care Line Walker Name Role Phone Prem Blanchard MD Primary Care Provider Allergies Active Allergy Reactions Criticality Noted Date Comments Chloroquine 04/04/2016 Medications Medication Sig Dispensed Refills Start Date End Date Status bisacodyL (DULCOLAX) 5 mg EC tablet Take 2 tabs at 6pm as directed. 07/24/2023 Active polyethylene glycol (PEG) 17 gram/dose oral powder Take 17 g by mouth daily. Take on a daily basis as needed for bowel regularity. 10/04/2019 Active losartan (COZAAR) 25 mg tablet Take 25 mg by mouth daily. Active ibuprofen (ADVIL,MOTRIN) 600 mg tablet TAKE 1 TABLET BY MOUTH FOUR TIMES A DAY NEEDED FOR SEVERE PAIN WITH FOOD OR MILK 08/23/2019 Active sulfamethoxazole-trime thoprim (BACTRIM DS,SEPTRA DS) 800-160 mg per tablet Take 1 tablet by mouth daily as needed. Active ibandronate (BONIVA) 150 mg tablet Take 150 mg by mouth every 30 days. Active omega-3 (FISH OIL) 360-1,200 mg capsule Take 1 Cap by mouth daily. Active multivitamin (MULTIPLE VITAMINS ORAL) Take by mouth. Active calcium carb,cit-mag cit,glycn 167 mg calcium -83 mg tablet Take by mouth. Active Active Problems Problem Noted Date Diagnosed Date Hyperlipidemia 06/19/2017 Hypertension 06/19/2017 Osteopenia 06/19/2017 Surgical History Surgery Date Site/Laterality Comments COLONOSCOPY 09/11/2012 PROCEDURE: HISTORICAL COLONOSCOPY; COMMENT: small polyp OTHER SURGICAL HISTORY 2005 PROCEDURE: HYSTEROSCOPY, SURGICAL/SAMPLING; COMMENT: Hysteroscopy removal Polyps COLONOSCOPY 07/15/2017 PROCEDURE: HISTORICAL COLONOSCOPY; COMMENT: negative Medical History Medical History Date Comments Hypertension DX:Hypertension Osteopenia DX:Osteopenia Osteoporosis 08/28/2017 DX:Osteoporosis IBS (irritable bowel syndrome) D X:IBS (irritable bowel syndrome); COMMENT: Positive for bloating, gassiness, cramping, rectal discharge Family History Medical History Relation Name Comments Colon cancer Brother Heart attack Father Diabetes Mother Heart failure Mother Relation Name Status Comments Brother Alive Father Maternal Grandfather Maternal Grandmother Mother Paternal Grandfather Paternal Grandmother Social History Tobacco Use Types Packs/Day Years Used Date Smoking Tobacco: Never Smokeless Tobacco: Never Alcohol Use Standard Drinks/Week Comments Yes 1 (1 standard drink = 0.6 oz pur e alcohol) Sex and Gender Information Value Date Recorded Sex Assigned at Not on file Gender Identity Not on file Sexual Orientation Not on file Obstetrics History Last Filed Vital Signs Vital Sign Reading Time Taken Comments Blood Pressure 137/82 01/22/2023 11:23 AM EST Si tting R Arm Pulse 92 01/22/2023 11:23 AM EST Temperature - - Respiratory Rate - - Oxygen Saturation - - Inhaled Oxygen Concentration - - Weight 54 kg (119 lb) 01/22/2023 11:23 AM EST Height 162.6 cm (5' 4 ) 01/22/2023 11:23 AM EST Body Mass Index 20.43 01/22/2023 11:23 AM EST Plan of Treatment Upcoming Encounters Date Type Department Care Team (Late st Contact Info) Description 06/01/2024 9:45 AM EDT Office Visit Obstetrics and Gynecology [facility] [address] [place] [id number] Aj Love, [facility] [address] [place] [id number] Health Maintenance Due Date Last Done Comments Breast Cancer Screening 1955 DTaP,Tdap,and Td Vaccines (1 - Tdap) 1973 Zoster Vaccines (1 of 2) 2004 Pneumococcal Vaccine: 65+ Ye ars (1 of 1 - PCV) 08/04/2019 Cholesterol Screening (Lipid Panel) 01/27/2022 Depression Screening 01/27/2022 Falls Risk Assessment 01/27/2022 Hepatitis C Screening 01/27/2022 Medicare Annual Wellness Visit 01/27/2022 Osteoporosis Screening (Bone Density Screening) 01/27/2022 Social Influencers of Health Screening 01/27/2022 Hypertension/CHF/CAD Annual BMP Blood Test 01/31/2022 COVID-19 Vaccine ( - 2023-2 5 season) 2023 Influenza Vaccine (#1) 2023 Colorectal Cancer Screening: Colonoscopy 08/06/2028 08/07/2023 RSV Immunization Patients 60 + Years Old (1 - 1-dose 75+ series) 2029 HIB Vaccines Aged Out No longer eligi ble based on patient's age to complete this topic HPV Vaccines Aged Out No longer eligi ble based on patient's age to complete this topic Hepatitis A Vaccines Aged Out No long er eligible based on patient's age to complete this topic Hepatitis B Vaccines Aged Out No long er eligible based on patient's age to complete this topic IPV Vaccines Aged Out No longer eligi ble based on patient's age to complete this topic MMR Vaccines Aged Out No longer eligi ble based on patient's age to complete this topic Meningococcal ACWY Vaccine Aged Out N o longer eligible based on patient's age to complete this topic RSV Immunization Patients Un deo 20 months Aged Out No longer eligible b ased on patient's age to complete this topic Varicella Vaccines Aged Out No longer eligible based on patient's age to complete this topic Procedures Procedure Name Priority Date/Time Associated Diagnosis Comments COLONOSCOPY Routine 08/07/2023 from Last 3 Months or Most Recently Relevant to Health Maintenance Results * Colonoscopy (08/07/2023) Colonoscopy no interpretation , abstracted Anatomical Region Laterality Modality Other Historical Provider MD ENEDELIA Andrade from Last 3 Months or Most Recently Relevant to Health Maintenance Care Teams Line Walker Relationship Specialty Start Date End Date Prem Blanchard MD [address] [place] [address] [address] [place] PCP - General Internal Medicine 02/01/16
== END 2024-03-10 10:32 | disposition home or self-care (01) ==
PROVIDERS: PCP Internal Medicine; Visit Provider Nurse Practitioner Family
DX: R05.3 Chronic cough (principal); Z91.09 Other allergy status, other than to drugs and biological substances; K21.9 Gastro-esophageal reflux disease without esophagitis
CPT/HCPCS: 99214

== ENCOUNTER → 2024-03-10 10:03 | Outpatient (BNVA) | payer MEDICARE, SELFPAY | PROVIDERS: PCP Internal Medicine; Visit Provider Nurse Practitioner Family | DX: J44.9 Chronic obstructive pulmonary disease, unspecified (principal); R05.3 Chronic cough; K21.9 Gastro-esophageal reflux disease without esophagitis; Z91.09 Other allergy status, other than to drugs and biological substances | CPT/HCPCS: 99212 ==

== ENCOUNTER 2024-04-01 09:27 | Outpatient (AMB) | payer MEDICARE, SELFPAY ==
[2024-04-01 09:36] VITALS: BP 120/80; PULSE 63; O2SAT 95; BMI 20.7
--- NOTE | 2024-04-01 09:36 | A.OFFPC_ITS ---
Vital Signs 04/01/24 09:36 Height 5 ft 4 in Weight 120 lb 8 oz BMI 20.7 BP 120/80 Blood Pressure Location Lt brachial Position Sitting Pulse 63 Pulse Source Pulse Oximeter Pulse Oximetry (%) 95 Oxygen Delivery Method Room Air Intake Visit Reasons: 6mth f/u Concert Pianist Required: No Accompanied by: Self / Same As Patient Allergies Chloroquine Phosphate Allergy (Intermediate, Uncoded 04/01/24 10:07) Hives Medication List - Last Reconciled 04/01/24 by Prem Blanchard MD albuterol sulfate 90 mcg/actuation 2 puffs inhalation Q4-6H PRN atorvastatin 10 mg PO BEDTIME 90 days calcium carbonate (Wander-Mint) 520 mg PO DAILY cholecalciferol (vitamin D3) 25 mcg PO DAILY fexofenadine 180 mg PO DAILY PRN 30 days fluticasone propionate 50 mcg/actuation (Flonase Allergy Relief) 2 sprays intranasal DAILY losartan 25 mg PO DAILY multivitamin 1 tab PO DAILY omeprazole 20 mg PO DAILY polyethylene glycol 3350 (Miralax) 17 grams PO DAILY sulfamethoxazole-trimethoprim 800-160 mg (Bactrim DS) Take 1 tablet orally x 1 dose AFTER sexual intercourse, PRN Tobacco use date assessed: 04/01/24 Fall risk assessment: 2 + Falls in past year Last assessed Fall Risk: 04/01/24 Dental Screening Dental Screen Date: 04/01/24 Did you have a dental visit in the last 12 months?: Yes Did you have a dental problem in the last 6 months where you did not have access to dental care?: No Was dental information given to patient?: Patient has dentist HPI 6m f/u HPI Details Patient comes in today for her follow up visit States that she feels okay but still has a recurrent non-productive cough She is now seeing pulmonary for her recurrent cough and is currently 2 months into a trial of PPI (Omeprazole) to see if this will help resolve her symptoms She's had work ups done in the past, including PFTs and chest x-rays / chest CT, that all came back normal or unrevealing but her recent chest CT did show (+) moderate LAD calcifications She denies any sore throat or any recent cold symptoms Denies any headaches or dizziness Denies any chest pains, no increased SOB No nausea/vomiting, no abdomnal pain No change in bowel habits noted She has no recent follow up labs done [facility] Medical History Insomnia Pure hypercholesterolemia Allergic rhinitis Benign essential hypertension Osteoporosis Surgical History History of colonoscopy History of dilation and curettage History of tonsillectomy Family History Mother CHF (congestive heart failure) Diabetes Father Heart attack Brother Colon cancer Social History Housing: House Alcohol intake: current Alcohol intake frequency: does not drink Patient Tobacco Use Status: Never used Tobacco Tobacco use type: Cigarette e-Cigarette/Vaping Use: Never Used Second Hand Smoke Exposure: No service: No Current occupational status: retired Cognitive needs: No Hearing needs: No Vision needs: Yes (Glasses) Questionnaire PHQ-9 Over the last 2 weeks, how often have you been bothered by any of the following problems? 1. Little interest or pleasure in doing things: several days 2. Feeling down, depressed, or hopeless: several days (mostly due to some family members' failing health lately) 3. Trouble falling or staying asleep, or sleeping too much: several days 4. Feeling tired or having little energy: several days 5. Poor appetite or overeating: not at all 6. Feeling bad about yourself - or that you are a failure or have let yourself or your family down: not at all 7. Trouble concentrating on things, such as reading the newspaper or watching television: not at all 8. Moving or speaking so slowly that other people could have noticed. Or the opposite - being so fidgety or restless that you have been moving around a lot more than usual: not at all 9. Thoughts that you would be better off or of hurting yourself in some way: not at all Total score: 4 Depression Screening Interpretation: Positive Depression Screening Follow-up: Existing condition and Declines treatment Depression Screening Done: Yes 92511 - PHQ-9 Billing: Yes Source: Developed by Drs. Palomo Cueva, Trish Nunez, Dawson Zheng and colleagues, with an educational bre from [employer]. Thrive Questionnaire Date Thrive assessed: 04/01/24 I am a: Patient What is your living situation today?: I have a steady place to live Within the past 12 months, did the food you bought not last and you didn't have the money to get more?: Never true Within the past 12 months, did you worry whether your food would run out before you got money to buy more?: Never true Do you have trouble paying for medicines?: No Do you have trouble getting transportation to medical appointments?: No Do you have trouble paying your heating and electricity bill?: No Do you have trouble taking care of your child, family member or friend?: No Do you have trouble with day-to-day activities such as bathing, preparing meals, shopping, managing finances, etc.?: No Are you currently unemployed and looking for a job?: No Are you interested in more education?: No Please select the resources that you would like help with: None Currently or been in a relationship where the following occur: No concerns reported THRIVE Score: 0 AUDIT C Alcohol Use Questionnaire (AUDIT-C) 1. How often do you have a drink containing alcohol?: Monthly or less 2. How many drinks containing alcohol do you have on a typical day when you are drinking?: 1 or 2 3. How often do you have six or more drinks on one occasion?: Never Total Score: 1 Score Reviewed/Action Taken: Yes NIKHIL-7 AMB Questionnaire NIKHIL-7 Date NIKHIL - 7 assessed: 04/01/24 Feeling nervous, anxious, or on edge: 1 = Several days Not being able to stop or control worryin = Not at all Worrying too much about different things: 0 = Not at all Trouble relaxin = Not at all Being so restless that it is hard to sit still: 0 = Not at all Becoming easily annoyed or irritable: 0 = Not at all Feeling afraid as if something awful might happen: 0 = Not at all Total NIKHIL-7 score (0-4 normal; 5-9 mild; 10-14 moderate; 15-21 severe): 1 Source: Developed by Drs. Palomo Cueva, Trish Nunez, Dawson Zheng and colleagues, with an educational bre from [employer] Review of Systems Const Denies chills, Reports difficulty sleeping (at times), Denies fatigue, Denies fever(s) and Denies headache(s) ENT Denies dysphagia, Denies dizziness, Denies headache(s), Reports hearing loss, Denies odynophagia, Reports tinnitus (in both ears, more noticeable at night) and Denies sore throat Card Denies chest pain, Denies palpitations and Denies dyspnea Resp Denies chest congestion, Reports cough (recurrent; non-productive), Denies pain with cough, Denies dyspnea and Denies wheezing GI Denies abdominal pain, Denies constipation, Denies dysphagia, Denies heartburn, Denies diarrhea, Denies nausea, Denies odynophagia and Denies vomiting Denies difficulty voiding, Denies nocturia and Denies dysuria Musc Details: on and off mild pain over the heels bilaterally Reports numbness (on and off, in some of the toes of both feet) and Reports tingling (on and off, in some of the toes of both feet) Skin/Breast Denies rash Neuro Denies dizziness, Denies headache(s), Reports numbness (on and off, in some of the toes of both feet) and Reports tingling (on and off, in some of the toes of both feet) Psych Denies depression Endo Denies fatigue and Denies palpitations Aller/Immun Denies wheezing Physical exam (Primary Care) Vital Signs: Last Vital Signs Pulse 63 04/01/24 09:36 BP 120/80 04/01/24 09:36 Pulse Ox 95 04/01/24 09:36 Oxygen Delivery Method Room Air 04/01/24 09:36 BMI result Body Mass Index 20.7 Tobacco/Smoking Status: Tobacco use Status Tobacco use date assessed 04/01/24 04/01/24 09:44 Patient Tobacco Use Status Never used Tobacco 04/01/24 09:44 Tobacco use type Cigarette 04/01/24 09:44 e-Cigarette/Vaping Use Never Used 04/01/24 09:44 PHQ-9: PHQ-9 Score PHQ-9: Total score 4 04/01/24 09:44 Depression Screening Interpretation: Positive Depression Screening Follow-up: Existing condition and Declines treatment Thrive Assessment: Date of Thrive Assessment Date Thrive assessed 02/13/25 02/13/25 09:44 Currently or been in a relationship where the following occur: No concerns reported Const General: no acute distress and alert HENMT Ears: TM's normal bilaterally and EAC's normal Throat: Yes posterior oropharynx normal and Yes tonsils normal (no TP congestion) Neck Neck: Yes supple and No lymphadenopathy Thyroid: Thyroid normal Resp Auscultation: clear to auscultation bilaterally, no crackles, no rales and no wheezes Cardio Rate: regular rate Rhythm: regular rhythm Heart sounds: no murmurs GI Palpation (GI): Soft to palpation and nontender Auscultation: normal bowel sounds General: Yes no CVA tenderness Back/Spine/Pelvis Back: no CVA tenderness Thoracic/Lumbar Spine: No lumbar spinal tenderness Skin Rashes: no rashes Extrem General: Yes no clubbing, cyanosis or edema Coding Level of Care Code Est Pt Level 4 (56273) Diagnoses Coronary artery calcification seen on computed tomography I25.10 Pure hypercholesterolemia E78.00 Benign essential hypertension I10 Recurrent dry cough R05.8 Gastroesophageal reflux disease without esophagitis K21.9 Esophagitis presence: without esophagitis Allergic rhinitis, unspecified seasonality, unspecified trigger J30.9 Allergic rhinitis trigger: unspecified Allergic rhinitis seasonality: unspecified Irritable bowel syndrome with constipation K58.1 Irritable bowel syndrome type: with constipation Osteopenia, unspecified location M85.80 Osteopenia location: unspecified Additional Codes PHQ-9 - 93573 - PHQ-9 Billing: Yes ([id number]) Assessment & Plan Assessment & Plan (1) Coronary artery calcification seen on computed tomography: Code(s): I25.10 - Atherosclerotic heart disease of [place] coronary artery without angina pectoris Category: Medical Plan: Results of her chest CT done back in December 2023 reviewed and discussed with patient - CT did show (+) moderate LAD calcification Have advised patient that coronary artery calcification makes ones arteries stiff and less able to expand and contract and this puts one at a higher risk for cardiovascular issues As she does have a strong family history of heart disease and she has a relatively high LDL cholesterol level, have recommended aggressive medical management for primary prevention Will now start her on Atorvastatin 10 mg QD to help lower her cholesterol level, particularly her LDL cholesterol, goal of which is <70 mg/dl Will also go ahead and refer her to cardiology for further recommendations (2) Pure hypercholesterolemia: Code(s): E78.00 - Pure hypercholesterolemia, unspecified Category: Medical Plan: Patient's LDL cholesterol level was as high as 138 mg/dl back in 2019 and in 2021 but she has been able to get this lower with diet modification over the past few years However, with the moderate LAD calcification that was seen on her chest CT done back in December 2023, have recommended that she should be more aggressive in getting her numbers down and she now agrees to start taking cholesterol-lowering medications to help with this Will start her now on Atorvastatin 10 mg Q HS Will have her recheck her labs and fasting lipids in 6 months for follow up (3) Benign essential hypertension: Code(s): I10 - Essential (primary) hypertension Category: Medical Plan: Reinforced low sodium diet - goal is systolic BP of at least 130 mm or less Continue Losartan 25 mg QD (4) Recurrent dry cough: Code(s): R05.8 - Other specified cough Category: Medical Plan: Patient reports that she is still experiencing a recurrent, non-productive cough, which has been going on for over a couple of years now She is now seeing pulmonary for follow up and further evaluation for this issue She's had chest x-rays and PFTs done, which were normal Chest CT done in December 2023 also came out normal although it revealed the moderate LAD calcifications mentioned above She is currently maintained on Fluticasone 50 mcg nasal spray for presumptive Tx of nasal allergies and is on a trial of PPI (Omeprazole) Of note, patient had an upper GI series done in 01/2021 that showed (+) mild gastroesophageal reflux only into the distal third of the esophagus without appreciable findings of acute esophagitis She will be seeing pulmonary again next month (April 2024) for her follow up visit (5) GERD (gastroesophageal reflux disease): Code(s): K21.9 - Gastro-esophageal reflux disease without esophagitis Category: Medical Qualifiers: Esophagitis presence: without esophagitis Qualified Code(s): K21.9 - Gastro-esophageal reflux disease without esophagitis Plan: Upper GI series done in January 2021 revealed (+) mild reflux into the distal third of the esophagus Patient could not tolerate Omeprazole 20 mg in the past as she reported experiencing frequent abdominal bloating, gas and occasional diarrhea while she was on Omeprazole and was taking Famotidine 20 mg BID PRN instead for a while but is now back on Omeprazole 20 mg QD to see if this will help resolve her recurrent coughing Reinforced dietary restrictions for GERD (6) Allergic rhinitis: Code(s): J30.9 - Allergic rhinitis, unspecified Category: Medical Qualifiers: Allergic rhinitis trigger: unspecified Allergic rhinitis seasonality: unspecified Qualified Code(s): J30.9 - Allergic rhinitis, unspecified Plan: Continue Fluticasone 50 mcg nasal spray QD PRN (7) IBS (irritable bowel syndrome): Code(s): K58.9 - Irritable bowel syndrome, unspecified Category: Medical Qualifiers: Irritable bowel syndrome type: with constipation Qualified Code(s): K58.1 - Irritable bowel syndrome with constipation Plan: Patient's symptoms here are predominantly more of constipation Continue Miralax 17 gm QD (8) Osteopenia: Code(s): M85.80 - Other specified disorders of bone density and structure, unspecified site Category: Medical Qualifiers: Osteopenia location: unspecified Qualified Code(s): M85.80 - Other specified disorders of bone density and structure, unspecified site Plan: Repeat BMD done on 09/12/2021 revealed osteopenia based on the lowest T-score value of -2.1 in the femoral neck - this has again improved by almost 10% from her BMD in 2019 Patient is encouraged to continue her daily Vitamin-D and oral calcium supplements Her Ibandronate was stopped last year as she has been on the Rx for about 5 years - started taking Rx in 2019 Will recheck her BMD now for follow up Plan Follow up in 6 months Orders: Orders TSH reflex Free T4 09/18/24 E78.00 - Pure hypercholesterolemia, unspecified XR DEXA axial skeleton Today M85.80 - Other specified disorders of bone density and structure, unspecified site, Z78.0 - Asymptomatic menopausal state UA CC w/rflx Micro + Cult 09/18/24 R30.0 - Dysuria Vitamin D 25-OH Total 09/18/24 E55.9 - Vitamin D deficiency, unspecified Referrals Cardiology Referral I25.10 - Atherosclerotic heart disease of [place] coronary artery without angina pectoris Medications: New atorvastatin 10 mg PO BEDTIME 90 days 90 tabs 1RF
--- OUTSIDE RECORDS SUMMARY | 2024-04-01 09:50 | XMS_ITS | Clinical Summary ---
Author Organization [facility] Address [address] [place] [address] Care Team Providers Care Standards Analyst Name Role Phone Prem Blanchard MD Primary Care Provider [phone] Allergies Active Allergy Reactions Criticality Noted Date Comments Chloroquine 04/04/2016 Medications bisacodyL (DULCOLAX) 5 mg EC tablet Take [...] PAIN WITH FOOD OR MILK 08/23/2019 Active sulfamethoxazole -trimethoprim (BACTRIM DS,SEPTRA DS) 800-160 mg per tablet [...] drink = 0.6 oz pur e alcohol) Comments Unknown Sex and Gender Information Value Date Recorded Sex Assigned at Not on file Legal Sex Female 3:15 AM EST Gender Identity Not on file Sexual Orientation [...] AM EDT Office Visit Obstetrics and Gynecology [facility] [address] [place] [phone] Aj Love, [facility] [address] [place] [phone] Health Maintenance Due Date Last Done Comments Breast Cancer Screening 1955 DTaP,Tdap,and Td Vaccines (1 - Tdap) 1973 Pneumococcal Vaccine: 50+ Ye ars (1 of 1 - PCV) 2004 Zoster Vaccines (1 of 2) 2004 Cholesterol Screening (Lipid Panel) 01/27/2022 Depression Screening [...] patient's age to complete this topic Meningococcal B Vacine Aged Out No lo nger eligible based on patient's age to complete [...] Region Laterality Modality Other Historical Provider MD HEALTH MAINTENANCE Final Result from Last 3 Months or Most Recently Relevant to Health Maintenance Insurance MEDICARE Care Teams Standards Analyst Relationship Specialty Start Date End Date Prem Blanchard MD [address] [place] [address] [address] [place]BEATRIZ PCP - General Internal Medicine 02/01/16
== END 2024-04-01 10:26 | disposition home or self-care (01) ==
PROVIDERS: PCP Internal Medicine; Visit Provider Internal Medicine
DX: I25.10 Atherosclerotic heart disease of native coronary artery without angina pectoris (principal); E78.00 Pure hypercholesterolemia, unspecified; I10 Essential (primary) hypertension; R05.8 Other specified cough; K21.9 Gastro-esophageal reflux disease without esophagitis; J30.9 Allergic rhinitis, unspecified; K58.1 Irritable bowel syndrome with constipation; M85.80 Other specified disorders of bone density and structure, unspecified site

== ENCOUNTER → 2024-04-01 09:27 | Outpatient (BNVA) | payer MEDICARE, SELFPAY | PROVIDERS: PCP Internal Medicine; Visit Provider Internal Medicine | DX: I25.10 Atherosclerotic heart disease of native coronary artery without angina pectoris (principal); E78.00 Pure hypercholesterolemia, unspecified; I10 Essential (primary) hypertension; R05.8 Other specified cough; K21.9 Gastro-esophageal reflux disease without esophagitis; J30.9 Allergic rhinitis, unspecified; K58.1 Irritable bowel syndrome with constipation; M85.80 Other specified disorders of bone density and structure, unspecified site | CPT/HCPCS: 96127; 99212 ==

== ENCOUNTER 2024-05-06 09:36 | Outpatient (REF) | payer MEDICARE, SELFPAY ==
--- NOTE | ~2024-05-06 | MM_ITS ---
EXAMINATION: DXA BONE DENSITY AXIAL HISTORY: Estrogen deficiency TECHNIQUE: [employer] Dual energy absorptiometry (DEXA) of the lumbar spine, total left hip, and femoral neck was performed. COMPARISON: Comparison is made with the prior examination dated 09/12/2021. FINDINGS: The bone mineral density of the lumbar spine is 0.960 with a T-score of -1.8, and a Z-score of 0.2. This is indicative of osteopenia. This represents a BMD change of 1.6% compared to the prior exam. This is not statistically significant. The bone mineral density of the left total hip is 0.718 with a T-score of -2.3, and a Z-score of -0.6. This is indicative of osteopenia. This represents a BMD change of -6.6% compared to the prior exam. This is statistically significant. The bone mineral density of the left femoral neck is 0.690 with a T-score of -2.5, and a Z-score of -0.6. This is indicative of osteoporosis. This represents a BMD change of -8.0% compared to the prior exam. MM/XR DEXA axial skeleton IMPRESSION: Based on bone mineral density, and according to World Health Organization (WHO) criteria, the diagnosis is consistent with osteoporosis. All bone density values are in grams per centimeter squared (g/cm2). Statistically, 68% of repeat scans fall within 1 SD (+/- 0.010 g/cm2 for AP spine L1-L4) and 1 SD (+/- 0.012 g/cm2 for femur total) FRAX is a trademark of the [employer]'s [place] [employer] Met[employer] Disease, a World Health Organization (WHO) Collaborating Center. Electronically signed by: Palomo Ohara MD 05/06/2024 10:27 AM EDT
--- OUTSIDE RECORDS SUMMARY | 2024-05-06 10:39 | XMS_ITS | Clinical Summary ---
Author Organization [facility] Address [address] [place] [address] Care Team Providers Care Copper Plate Lithographer Name Role Phone Prem Blanchard MD Primary Care Provider [phone] Allergies Active Allergy Reactions Criticality Noted Date [...] AM EDT Office Visit Obstetrics and Gynecology [facility] [address] [place] [phone] Aj Love, [facility] [address] [place] [phone] Health Maintenance Due Date Last Done Comments [...] to Health Maintenance Insurance MEDICARE Care Teams Copper Plate Lithographer Relationship Specialty Start Date End Date Prem Blanchard MD [address] [place] [address] [address] [place] PCP - General Internal Medicine 02/01/16
== END 2024-05-06 09:37 | disposition home or self-care (01) ==
LOC: HO.MAMMO 09:36
PROVIDERS: PCP Internal Medicine; Visit Provider Internal Medicine
DX: Z13.820 Encounter for screening for osteoporosis (principal); Z78.0 Asymptomatic menopausal state; M85.80 Other specified disorders of bone density and structure, unspecified site
CPT/HCPCS: 77080

== ENCOUNTER → 2024-05-06 10:00 | Outpatient (BNV) | payer MEDICARE, SELFPAY | PROVIDERS: PCP Internal Medicine; Visit Provider Radiology Diagnostic Radiology | DX: E28.39 Other primary ovarian failure (principal) | CPT/HCPCS: 77080 ==

== ENCOUNTER 2024-05-07 09:43 | Outpatient (AMB) | payer MEDICARE, SELFPAY ==
--- NOTE | 2024-05-07 09:45 | MHC.OFFVIS ---
Vital Signs 05/07/24 09:47 Height 5 ft 4 in Weight 120 lb BMI 20.6 BP 134/70 Blood Pressure Location Lt brachial Position Sitting Pulse 74 Pulse Source Pulse Oximeter Pulse Oximetry (%) 99 Oxygen Delivery Method Room Air Intake Visit Reasons: copd Circulation Man Required: No Street Department Dispatcher: Street Department Dispatcher offered & declined Accompanied by: Self / Same As Patient Allergies Chloroquine Phosphate Allergy (Intermediate, Uncoded 05/07/24 09:52) Hives Medication List - Last Reconciled 05/07/24 by Tiara Vargas LPN albuterol sulfate 90 mcg/actuation 2 puffs inhalation Q4-6H PRN atorvastatin 10 mg PO BEDTIME 90 days calcium carbonate (Wander-Mint) 520 mg PO DAILY cholecalciferol (vitamin D3) 25 mcg PO DAILY fexofenadine 180 mg PO DAILY PRN 30 days fluticasone propionate 50 mcg/actuation (Flonase Allergy Relief) 2 sprays intranasal DAILY losartan 25 mg PO DAILY multivitamin 1 tab PO DAILY omeprazole 20 mg PO DAILY polyethylene glycol 3350 (Miralax) 17 grams PO DAILY sulfamethoxazole-trimethoprim 800-160 mg (Bactrim DS) Take 1 tablet orally x 1 dose AFTER sexual intercourse, PRN HPI HPI copd: Details: Carole is a pleasant 68 year old female, never smoker, with underlying HTN, GERD, and osteoporosis. She was initially referred by PCP for pulmonary evaluation for chronic cough, occasionally productive with clear sputum. Denies dyspnea, chest tightness or wheezing. At the last visit, she was started on Flonase with improvements in post nasal drip however has had no change in cough. She was started on PPI for possible silent reflux however reports minimal change. Prior PFT did not reveal an obstructive defect however lung volumes were increased, suggestive of air trapping and possible small airways disease such as asthma in addition to +RAST, elevated IgE and eosinophils. We had previously discussed an inhaler but patient declined and continues to do so. She denies any visits to urgent care or hospitalizations since the last visit. [facility] Medical History (Updated 04/01/24 @ 12:20 by Prem Blanchard MD) Osteopenia Insomnia Pure hypercholesterolemia Allergic rhinitis Benign essential hypertension Osteoporosis Surgical History History of colonoscopy History of dilation and curettage History of tonsillectomy Family History Mother CHF (congestive heart failure) Diabetes Father Heart attack Brother Colon cancer Social History Housing: House Alcohol intake: current Alcohol intake frequency: does not drink Patient Tobacco Use Status: Never used Tobacco Tobacco use type: Cigarette e-Cigarette/Vaping Use: Never Used Second Hand Smoke Exposure: No service: No Current occupational status: retired Cognitive needs: No Hearing needs: No Vision needs: Yes (Glasses) Review of Systems Const Denies chills, Denies excessive sweating, Denies fever(s), Denies headache(s) and Denies night sweats Eyes Denies dry eyes and Denies irritation ENT Reports Normal hearing present, Denies headache(s), Denies nasal congestion, Denies nasal discharge, Reports post nasal drip and Denies sore throat Card Denies chest pain, Denies chest pain at rest, Denies chest pain with activity, Denies claudication, Denies leg edema, Denies orthopnea and Denies paroxysmal nocturnal dyspnea Resp Denies wheezing Musc Denies myalgias Neuro Reports Normal hearing present and Denies headache(s) Endo Denies excessive sweating Gumaro/Lymph Denies lymphadenopathy Aller/Immun Denies wheezing Physical Exam Vital Signs: Last Vital Signs Pulse 74 05/07/24 09:47 BP 134/70 05/07/24 09:47 Pulse Ox 99 05/07/24 09:47 Oxygen Delivery Method Room Air 05/07/24 09:47 BMI result Body Mass Index 20.6 Const General: cooperative, healthy appearing, comfortable, no acute distress, well developed and alert Orientation/consciousness: patient oriented x3 Limitations: no limitations HEENT Head: Yes normal to inspection, Yes normocephalic and Yes atraumatic Ears: hearing grossly normal bilaterally and external ears normal Eyes General: appearance normal, both eyes and all related structures Eyelids: Yes eyelids normal Sclerae: sclerae normal EOM: EOMs intact bilaterally Neck Neck: Yes normal visual inspection and Yes no lymphadenopathy Lymphatic: no lymphadenopathy noted Chest Chest palpation & inspection: normal inspection of the chest Resp Effort & Inspection: normal respiratory effort, able to speak in complete sentences, no audible wheezes, no cough, no stridor, not tachypneic, no tripod positioning and no use of accessory muscles Auscultation: diminished lung sounds Cardio Jugular venous distension: no JVD Rate: regular rate Rhythm: regular rhythm Skin Other: warm, dry General skin exam: no rashes or lesions noted Neuro General: patient oriented x3 Cranial nerves: Yes Normal hearing present Cognition (Neuro): normal cognition Gait exam (Neuro): Normal gait present Extrem General: Yes normal to inspection, Yes capillary refill normal, Yes no clubbing, cyanosis or edema and Yes no pedal edema Psych Appearance: grossly normal and well kempt Speech and movement: Normal speech and movement present and Clear speech present Affect: normal affect Attitude: cooperative Thought process: Normal thought process present Thought content: Normal thought content present Insight: Good insight present (Psych) Judgement: Good judgement present (Psych) Assessment & Plan Assessment & Plan (1) Chronic cough: Code(s): R05.3 - Chronic cough Category: Medical (2) Environmental allergies: Code(s): Z91.09 - Other allergy status, other than to drugs and biological substances Category: Medical (3) GERD (gastroesophageal reflux disease): Code(s): K21.9 - Gastro-esophageal reflux disease without esophagitis Category: Medical Qualifiers: Esophagitis presence: without esophagitis Qualified Code(s): K21.9 - Gastro-esophageal reflux disease without esophagitis Plan Discussed with Carole the likelihood that symptoms are related to small airways disease such as asthma as well as allergies. Recommended ICS/LABA however patient declined, agreeable to trial antihistamine. If she is interested in trialing, she is aware to call the office. Will d/c PPI as minimal change in cough. All questions were answered and patient is in agreement of plan. Will follow up in 6 months or sooner if needed. Medications: Refilled fluticasone propionate 50 mcg/actuation (Flonase Allergy Relief) administer into each nostril 2 sprays intranasal DAILY 16 grams 3RF Coding Level of Care Code Est Pt Level 4 (34073) Diagnoses Chronic cough R05.3 Environmental allergies Z91.09 Gastroesophageal reflux disease without esophagitis K21.9 Esophagitis presence: without esophagitis
[2024-05-07 09:47] VITALS: BP 134/70; PULSE 74; O2SAT 99; BMI 20.6
--- OUTSIDE RECORDS SUMMARY | 2024-05-07 11:13 | XMS_ITS | Clinical Summary ---
Author Organization [employer] [employer] [facility] [place] [facility] Address [address] [place] [address] Care Team Providers Care Chief Operator Hydroformer Name Role Phone Prem Blanchard MD Primary Care Provider [phone] Allergies Active Allergy Reactions Criticality Noted Date [...] AM EDT Office Visit Obstetrics and Gynecology [facility] [address] [place] [phone] Aj Love, [facility] [address] [place] [id number] Health Maintenance Due Date Last Done Comments [...] to Health Maintenance Insurance MEDICARE Care Teams Chief Operator Hydroformer Relationship Specialty Start Date End Date Prem Blanchard MD [address] [place] [address] [address] [place] PCP - General Internal Medicine 02/01/16
== END 2024-05-07 10:12 | disposition home or self-care (01) ==
LOC: HO.HPSW 09:44
PROVIDERS: PCP Internal Medicine; Visit Provider Nurse Practitioner Family
DX: R05.3 Chronic cough (principal); Z91.09 Other allergy status, other than to drugs and biological substances; K21.9 Gastro-esophageal reflux disease without esophagitis
CPT/HCPCS: 99214

== ENCOUNTER → 2024-05-07 09:43 | Outpatient (BNVA) | payer MEDICARE, SELFPAY | PROVIDERS: PCP Internal Medicine; Visit Provider Nurse Practitioner Family | DX: R05.3 Chronic cough (principal); K21.9 Gastro-esophageal reflux disease without esophagitis; Z91.09 Other allergy status, other than to drugs and biological substances | CPT/HCPCS: 99212 ==

== ENCOUNTER 2024-07-06 13:39 | Outpatient (AMB) | payer MEDICARE, SELFPAY ==
[2024-07-06 13:46] VITALS: BP 120/78; PULSE 68; BMI 20.1
--- NOTE | 2024-07-06 13:46 | A.OFFVIS_ITS ---
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 Heart disease/[place] Intake Note: New patient Atherosclerotic heart dx seen on CT feeling good Lan Support Specialist Required: No Allergies Chloroquine Phosphate Allergy (Intermediate, Uncoded 05/07/24 09:52) Hives Medication List - Last Reconciled 07/06/24 by Cory Lindsay MD albuterol sulfate 90 mcg/actuation 2 puffs inhalation Q4-6H PRN atorvastatin 10 mg PO BEDTIME 90 days calcium carbonate (Wander-Mint) 520 mg PO DAILY cholecalciferol (vitamin D3) 25 mcg PO DAILY fexofenadine 180 mg PO DAILY PRN 30 days fluticasone propionate 50 mcg/actuation (Flonase Allergy Relief) 2 sprays intranasal DAILY losartan 25 mg PO DAILY multivitamin 1 tab PO DAILY polyethylene glycol 3350 (Miralax) 17 grams PO DAILY HPI Comments Details: Carole was referred here for evaluation as recent chest CT done for noncardiac reason for chronic cough showed coronary calcium, moderate severe already in the LAD territory. Patient says she does not exercise extensively but she has no restriction in activity level. She can walk without having any significant chest pain or shortness of breath. She has mild hyperlipidemia and recently started on 10 mg of atorvastatin. She denies any other cardiac symptoms. No prolonged palpitation irregular heartbeat. No lightheadedness, syncope. No orthopnea, PND, leg edema. She has strong family history of cardiovascular disease with father dying at age 51 with premature coronary artery disease and myocardial infarction. Mother had congestive heart failure. [facility] Medical History Osteopenia Insomnia Pure hypercholesterolemia Allergic rhinitis Benign essential hypertension Osteoporosis Surgical History History of colonoscopy History of dilation and curettage History of tonsillectomy Family History Mother CHF (congestive heart failure) Diabetes Father Heart attack Brother Colon cancer Social History Housing: House Alcohol intake: current Alcohol intake frequency: does not drink Patient Tobacco Use Status: Never used Tobacco Tobacco use type: Cigarette e-Cigarette/Vaping Use: Never Used Second Hand Smoke Exposure: No service: No Current occupational status: retired Cognitive needs: No Hearing needs: No Vision needs: Yes (Glasses) Review of Systems Const Denies chills, Denies daytime sleepiness, Denies fatigue, Denies fever(s), Denies frequent falls, Denies poor appetite, Denies snoring, Denies stops melody athing during sleep, Denies weakness, Denies weight gain and Denies weight loss Eyes Denies loss of vision ENT Denies dizziness and Denies hearing loss Card Denies chest pain, Denies claudication, Denies leg edema, Denies lightheadedness, Denies palpitations, Denies dyspnea, Denies dyspnea on exertion and Denies orthopnea Resp Reports cough, Denies excessive phlegm production, Denies dyspnea, Denies dyspnea on exertion, Denies snoring and Denies wheezing GI Denies abdominal pain, Denies hematochezia, Denies change in bowel habits, Denies nausea and Denies vomiting Denies urinary frequency and Denies dysuria Musc Denies arthralgias, Denies muscle weakness, Denies numbness and Denies other (frequent falls) Skin/Breast Denies nail changes and Denies rash Neuro Denies Abnormal speech present, Denies dizziness, Denies frequent falls, Denies loss of vision, Denies memory loss, Denies numbness and Denies weakness Psych Denies depression and Denies memory loss Endo Denies fatigue and Denies palpitations Gumaro/Lymph Reports easy bruising and Reports other (anemia) Aller/Immun Denies wheezing Physical Exam Vital Signs: Last Vital Signs Pulse 68 07/06/24 13:46 BP 120/78 07/06/24 13:46 BMI result Body Mass Index 20.1 Const General: cooperative, comfortable, no acute distress, alert, awake and Physically active Nutritional Appearance: thin Orientation/consciousness: patient oriented x3 Limitations: no limitations HEENT Head: Yes normocephalic and Yes atraumatic Neck Neck: Yes trachea midline, Yes supple and Yes no JVD Carotids: no bruits Resp Effort & Inspection: normal respiratory effort Auscultation: clear to auscultation bilaterally, no rales, no wheezes and diminished lung sounds Cardio Jugular venous distension: no JVD Palpation: normal PMI Rate: regular rate Rhythm: regular rhythm Heart sounds: S1 normal heart sound present, S2 normal heart sound present, no click, no gallops, no murmurs and no rubs GI Auscultation: normal bowel sounds Skin General skin exam: no rashes or lesions noted Neuro General: patient oriented x3 and no focal motor deficits Speech: No Abnormal speech present Extrem General: Yes no clubbing, cyanosis or edema Psych Appearance: grossly normal Office Procedures EKG Details: EKG shows normal sinus rhythm with normal EKG 16999-[id number], Complete Assessment & Plan Assessment & Plan (1) Coronary artery calcification seen on computed tomography: Code(s): I25.10 - Atherosclerotic heart disease of [place] coronary artery without angina pectoris Category: Medical Plan: Presence of coronary artery calcium on a noncardiac dedicated CT is usually suggest coronary atherosclerosis. She does have risk factors of age, hyperlipidemia as strong family history of premature coronary artery disease. She has no obvious current symptoms. Baseline EKGs normal. I would suggest her to undergo treadmill stress test to evaluate for any significant myocardial ischemia at low workload that may necessitate more invasive approach to man agement. I have also suggest her to have a dedicated coronary calcium score as calcium score bites of has prognostic information. Based on the calcium score she may need low-dose aspirin therapy and more intense lipid modification and/or further coronary angiographic evaluation. This was discussed with her. She understands agrees. Meanwhile she is currently on 10 mg of statin which is moderate intensity statin therapy. I have advised her to follow-up lipid panel near future along with vascular inflammatory markers to assess for adequate treatment. Management was discussed with her in details. She understands agrees. She is encouraged to continue to maintain activity level as tolerated. Anginal symptoms were reviewed. Follow up in the clinic in 3 months time, sooner p.r.n.. Thank you for allowing me to partake in her care Orders: Orders CA stress test Today I25.10 - Atherosclerotic heart disease of [place] coronary artery without angina pectoris CT Coronary Calcium Score 1 Week I25.10 - Atherosclerotic heart disease of [place] coronary artery without angina pectoris Lipid Panel Today I25.10 - Atherosclerotic heart disease of [place] coronary artery without angina pectoris CRP High Sensitivity Today I25.10 - Atherosclerotic heart disease of [place] coronary artery without angina pectoris Coding Level of Care Code New Pt Level 4 (10928) Complex EM visit Add On G2211 Diagnoses Coronary artery calcification seen on computed tomography I25.10 CPT Codes EKG - CPT: 58379-[id number], Complete ([id number])
--- OUTSIDE RECORDS SUMMARY | 2024-07-06 14:49 | XMS_ITS | Clinical Summary ---
Author Organization [facility] [address] [facility] l[facility] Address [address] [place] [address] Phone Care Team Providers Care Warehouse Loader Name Role Phone Prem Blanchard MD Primary Care Provider [phone] Allergies Active Allergy Reactions Criticality Noted Date Comments Chloroquine Hives 04/04/2016 Medications polyethylene glycol (PEG) 17 gram/dose oral powder Take 17 g by mouth daily. Take on a daily basis as needed for bowel regularity. 0 Active losartan (COZAAR) 25 mg tablet Take 25 mg by mouth daily. Active multivitamin (MULTIPLE VITAMINS ORAL) Take by mouth. Active calcium carb,cit-mag cit,glycn 167 mg calcium -83 mg tablet Take by mouth. Activ e atorvastatin (LIPITOR) 10 mg tablet Take 1 tablet (10 mg total) by mouth at bedtime. 5 Active fluticasone propionate (FLONASE) 50 mcg/actuation nasal spray Administer 2 sprays into each nostril 1 (one) time each day. SPRAY 2 SPRAYS INTO EACH NOSTRILS DAILY 5 Active vit C/E/Zn/coppr/charu tein/zeaxan (PRESERVISION AREDS-2 ORAL) Take 1 tablet by mouth 2 (two) times a day. Active Active Problems Problem Noted Date Diagnosed Date Hyperlipidemia 06/19/2017 Hypertension 06/19/2017 Osteopenia 06/19/2017 Encounters Date Type Department Care Team Description 06/01/2024 9:45 AM EDT Office Visit Obstetrics and Gynecology [address] [phone] Aj Love CNM Encounter for breast and pelvic examination (Primary Dx) from Last 3 Months Surgical History Surgery Date Site/Laterality Comments COLONOSCOPY 09/11/2012 PROCEDURE: HISTORICAL COLONOSCOPY; COMMENT: small polyp OTHER SURGICAL HISTORY 2005 PROCEDURE: HYSTEROSCOPY, SURGICAL/SAMPLING; COMMENT: Hysteroscopy removal Polyps COLONOSCOPY 07/15/2017 PROCEDURE: HISTORICAL COLONOSCOPY; COMMENT: negative MYOMECTOMY Medical History Medical History Date Comments Hypertension DX:Hypertension Osteopenia DX:Osteopenia Osteoporosis 08/28/2017 DX:Osteoporosis IBS (irritable bowel syndrome) D X:IBS (irritable bowel syndrome); COMMENT: Positive for bloating, gassiness, cramping, rectal discharge Fibroid Urinary tract infection Family History Medical History Relation Name Comments Colon cancer Brother 1 Dementia Brother 2 Fer Heart attack Father Evgeny Heart disease Father Evgeny Diabetes Mother Marni Heart disease Mother Marni Heart failure Mother Marni Hypertension Mother Marni Relation Name Status Comments Brother 1 Alive Brother 2 Fer Father Evgeny Maternal Grandfather Maternal Grandmother Mother Marni Paternal Grandfather Paternal Grandmother Social History Tobacco Use Types Packs/Day Years Used Date Smoking Tobacco: Never Smokeless Tobacco: Never Tobacco Cessation:Counseling Given: Not Answered Alcohol Use Standard Drinks/Week Comments Yes 1 (1 standard drink = 0.6 oz pure alcohol) It is really more like 1 glass of wine per month Housing Instability Answer Date Recorde d Are you worried that in the next 2 months you may not have stable housing? No 05/27/2024 Food Access & Nutrition Answer Date Rec orded Do you have access to a vari ety of food including fruits and vegetables? Yes 05/27/2024 Access to Healthcare Answer Date Record ed Within the last 3 months, ho w many times did you visit the emergency department for your medical care? 0 05/27/2024 Health Literacy Answer Date Recorded How often do you need to hav e someone help you when you read instructions, pamphlets, or other written material from your doctor or pharmacy? Never 05/27/2024 Caregiver: How often do you need to have someone help you when you read instructions, pamphlets, or other written material from your doctor or pharmacy? Not on file 05/27/2024 Financial Risk Answer Date Recorded How hard is it for you to pa y for the very basics like food, housing, medical care, and air conditioning / heating? Not very hard 05/27/2024 Transportation Answer Date Recorded Has the lack of transportati on kept you from meetings, work, or from getting things needed for daily living? No Has the lack of transportati on kept you from medical appointments or from getting medications? No 05/27/2024 Social Isolation Answer Date Recorded How often do you feel lonely or isolated from those around you? Sometimes 05/27/2024 Food Risk Answer Date Recorded Within the past 12 months we worried whether our food would run out before we got money to buy more. Never true 05/27/2024 Within the past 12 months th e food we bought just didn't last and we didn't have money to get more. Never true 05/27/2024 Dependent Care Answer Date Recorded Do you need help finding or paying for care for your loved ones. For example, child protective investigator or elderly care for an older adult? No 05/27/2024 Education Answer Date Recorded Do you think completing more education or training, like finishing a GED, going to college, or learning a trade, would be helpful for you? No 05/27/2024 Employment and Income Answer Date Recor ded During the last four weeks, have you been actively looking for work? No 05/27/2024 Living Situation Answer Date Recorded What is your living situation? 0 05/27/2024 Comments No Sex and Gender Information Value Date Recorded Sex Assigned at Not on file Legal Sex Female 3:15 AM EST Gender Identity Not on file Sexual Orientation Not on file Obstetrics History Para Term AB IAB SAB Ectopic Multiple Livin g Live Births 0 0 0 0 0 0 0 0 0 0 0 Last Filed Vital Signs Vital Sign Reading Time Taken Comments Blood Pressure 127/74 06/01/2024 9:28 AM EDT Pulse 71 06/01/2024 9:28 AM EDT Temperature - - Respiratory Rate - - Oxygen Saturation - - Inhaled Oxygen Concentration - - Weight 53.5 kg (118 lb) 06/01/2024 9:28 AM EDT Height 162.6 cm (5' 4 ) 01/22/2023 11:23 AM EST Body Mass Index 20.25 01/22/2023 11:23 AM EST Plan of Treatment Health Maintenance Due Date Last Done Comments Breast Cancer Screening 1955 Zoster Vaccines (1 of 2) 2004 Pneumococcal Vaccine: 50+ Years (2 of 2 - PCV) 09/01/2021 09/01/2020 Cholesterol Screening (Lipid Panel) 01/27/2022 Falls Risk Assessment 01/27/2022 Hepatitis C Screening 01/27/2022 Medicare Annual Wellness Visit 01/27/2022 Osteoporosis Screening (Bone Density Screening) 01/27/2022 Hypertension/CHF/CAD Annual BMP Blood Test 01/31/2022 COVID-19 Vaccine ( season) 2024 12/17/2023, 12/02/2022, 12/14/2021, Additional history exists Depression Screening 05/27/2025 05/27/2024 Social Influencers of Health Screening 05/27/2025 05/27/2024 Colorectal Cancer Screening: Colonoscopy 08/06/2028 08/07/2023 DTaP,Tdap,and Td Vaccines (3 - Td or Tdap) 10/01/2030 10/01/2020, 11/20/2015 RSV Immunization Adult Patients Completed 11/01/2022 Influenza Vaccine Completed 11/15/2023, , 12/02/2021, Additional history exists HIB Vaccines Aged Out No longer eligi [...] age to complete this topic Meningococcal B Vaccine Aged Out No l onger eligible based on patient's age to complete this topic RSV Immunization Patients Under 20 months Aged Out No longer eligible based on [...] Recently Relevant to Health Maintenance Insurance MEDICARE [facility] Care Teams Warehouse Loader Relationship Specialty Start Date End Date Prem Blanchard MD [address] [place] [address] [address] [place] PCP - General Internal Medicine 02/01/16
== END 2024-07-06 14:20 | disposition home or self-care (01) ==
LOC: HO.HCS 13:40
PROVIDERS: PCP Internal Medicine; Visit Provider Internal Medicine Cardiovascular Disease
DX: I25.10 Atherosclerotic heart disease of native coronary artery without angina pectoris (principal)
CPT/HCPCS: 93010; 99204; G2211

== ENCOUNTER → 2024-07-06 13:39 | Outpatient (BNVA) | payer MEDICARE, SELFPAY | PROVIDERS: PCP Internal Medicine; Visit Provider Internal Medicine Cardiovascular Disease | DX: I25.10 Atherosclerotic heart disease of native coronary artery without angina pectoris (principal) | CPT/HCPCS: 93005; 99202 ==

== ENCOUNTER 2024-07-07 08:17 | Outpatient (REF) | payer MEDICARE, SELFPAY ==
--- OUTSIDE RECORDS SUMMARY | 2024-07-07 09:33 | XMS_ITS | Clinical Summary ---
Author Organization [facility] [address] [facility] l[facility] Address [address] [place] [address] Phone Care Team Providers Care Worm Raiser Name Role Phone Prem Blanchard MD Primary [...] AM EDT Office Visit Obstetrics and Gynecology [address] [phone] Aj Love CNM Encounter for [...] for your loved ones. For example, child care coordinator or elderly care for an older adult? [...] Recently Relevant to Health Maintenance Insurance MEDICARE [facility] Care Teams Worm Raiser Relationship Specialty Start Date End Date Prem Blanchard MD [address] [place] [address] [address] [place] PCP - General Internal Medicine 02/01/16
[2024-07-07 11:33] LABS: Cholesterol 128 mg/dL (<200); HDL Cholesterol 45 mg/dL (>40); LDL Cholesterol Calculated 66 mg/dL (<100); Triglycerides 85 mg/dL (<150)
[2024-07-09 08:54] LABS: CRP High Sensitivity 1.2 mg/L
== END 2024-07-07 08:18 | disposition home or self-care (01) ==
LOC: HO.WFDLDS 08:17
PROVIDERS: Visit Provider Internal Medicine Cardiovascular Disease
DX: I25.10 Atherosclerotic heart disease of native coronary artery without angina pectoris (principal); I10 Essential (primary) hypertension
CPT/HCPCS: 36415; 80061; 86141

== ENCOUNTER → 2024-08-19 09:12 | Outpatient (REF) | payer MEDICARE, SELFPAY ==
--- NOTE | 2024-08-19 09:15 | CA_ITS ---
Acquisition Time: 2024-08-19 10:01:51 Total Exercise Time: 00:06:00 Test Indications: Abnormal ECG Medications: ALBUTEROL ATROVASTATIN LOSARTAN Protocol: OMEGA Max HR: 148 BPM 98% of Pred: 150 BPM Max BP: 140/80 mmHG Max Work Load: 4.6 METS Exercise stress test with exercise 6 mins of Omega Protocol, held at Stage 1, achieving 96% MPHR, with reports of SOB, no chets pain, without any arrythmias, with normotensive response to exercise. With EKG changes inferiorly and V4-V6, initially with J point depression uplsoping ST and later with horizontal ST segment in recovery, meeting criteria for ischemia. In recovery, breathing returned to baseline. Test reviewed with Dr. Lindsay. Will order nuclear stress test for further eval. Referred By: Cory Lindsay Electronically Signed By: Dennys Zuniga
--- OUTSIDE RECORDS SUMMARY | 2024-08-19 09:29 | XMS_ITS | Clinical Summary ---
Author Organization [facility] [address] [facility] l[address] Address [address] [place] [address] Phone Care Team Providers Care Lang Path Therapist Name Role Phone Prem Blanchard MD Primary Care Provider [phone] Allergies Active Allergy Reactions Criticality Noted Date [...] AM EDT Office Visit Obstetrics and Gynecology [address] [address] Aj Love CNM Encounter for [...] care for your loved ones. For example, vocational childcare teacher or elderly care for an older adult? [...] Recently Relevant to Health Maintenance Insurance MEDICARE [facility] Care Teams Lang Path Therapist Relationship Specialty Start Date End Date Prem Blanchard MD [address] [place] [address] [address] [place] PCP - General Internal Medicine 02/01/16
== END ==
LOC: HO.CARD 09:12
PROVIDERS: PCP Internal Medicine; Visit Provider Internal Medicine Cardiovascular Disease
DX: I25.10 Atherosclerotic heart disease of native coronary artery without angina pectoris (principal); R93.1 Abnormal findings on diagnostic imaging of heart and coronary circulation
CPT/HCPCS: 93017

== ENCOUNTER → 2024-08-19 09:15 | Outpatient (BNV) | payer MEDICARE, SELFPAY | PROVIDERS: PCP Internal Medicine | DX: R06.02 Shortness of breath (principal); R94.31 Abnormal electrocardiogram [ECG] [EKG] | CPT/HCPCS: 93016; 93018 ==

== ENCOUNTER → 2024-08-27 08:49 | Outpatient (REF) | payer MEDICARE, SELFPAY ==
--- NOTE | ~2024-08-27 | NM_ITS ---
EXERCISE MYOCARDIAL PERFUSION STUDY INDICATION: Abnormal stress test reported TECHNIQUE: The patient was brought in for an exercise perfusion study on 08/27/2024. Patient performed exercise as per Edmund protocol and was injected 25 mCi of sestamibi once target heart rate was achieved. Images were obtained using the SPECT gamma camera interlaced with the gating device. Images were obtained in supine position. Resting perfusion study was performed on 08/31/2024. Patient was administered 25 mCi of sestamibi intravenously at rest. Images were then obtained in supine position. Total DLP 105 mGy-cm. Images were processed with the software and compared side to side in short axis, horizontal long axis and vertical long axis views. FINDINGS: Raw aquisition reviewed. The stress perfusion study showed no significant perfusion abnormality. Both uncorrected as well as CT attenuation corrected images were reviewed. The gated study shows normal LV systolic function with calculated LVEF of 74%. LV cavity is normal in size. The gated study shows normal wall thickening and contraction of segments. Resting study shows no significant perfusion abnormality. Gating at rest reveals normal wall motion with ejection fraction at 71%. The findings are consistent with no clear reversible or fixed perfusion abnormality. NM/NM cardiolite stress test IMPRESSION: 1. Myocardial perfusion imaging study shows normal myocardial perfusion. 2. Gated LVEF is > 70% during stress and rest. 3. Transient ischemic dilatation not present. EKG component of the test reported separately. Electronically signed by: Michael Corey MD 09/01/2024 10:44 AM EDT
--- NOTE | 2024-08-27 08:51 | CA_ITS ---
Acquisition Time: 2024-08-27 09:06:39 Total Exercise Time: 00:05:05 Test Indications: Abnormal Treadmill Test CAD Medications: AKLBUTEROL ATORVASTATIN FEXOFENADINE FLONASE LOSARTAN Protocol: OMEGA Max HR: 144 BPM 96% of Pred: 150 BPM Max BP: 160/84 mmHG Max Work Load: 4.6 METS Exercise stress test with exercise 5 mins 5 secs of Omega Protocol, held at Stage 1, achieving 95% MPHR, with reports of SOB, no chest pain, without any arrythmias, with normotensive response to exercise. With J point depression upsloping ST during exercise, later in recovery, with horitonsal ST depression, suggestive for ischemia. In recovery, breathing returned to baseline. Nuclear images pending. ST sgement improved. Test reviewed with Dr. Son. Referred By: Dennys Zuniga Electronically Signed By: Dennys Zuniga
--- OUTSIDE RECORDS SUMMARY | 2024-08-27 08:57 | XMS_ITS | Clinical Summary ---
Author Organization [facility] [address] [facility] lding Address [address] [place] [address] Phone Care Team Providers Care Shift Boss Name Role Phone Prem Blanchard MD Primary [...] AM EDT Office Visit Obstetrics and Gynecology [address] [phone] Aj Love CNM Encounter for [...] for your loved ones. For example, child caregiver or elderly care for an older adult? [...] 2024 12/17/2023, 12/02/2022, 12/14/2021, Additional history exists Influenza Vaccine (#1) 2024 , 01/11/2023, 12/02/2021, Additional history exists Depression Screening 05/27/2025 05/27/2024 Social Influencers of Health Screening 05/27/2025 05/27/2024 Colorectal Cancer Screening: Colonoscopy 08/06/2028 08/07/2023 DTaP,Tdap,and Td Vaccines (3 - Td or Tdap) 10/01/2030 10/01/2020, 11/20/2015 RSV Immunization Adult Patients Completed 11/01/2022 HIB Vaccines Aged Out No longer eligi [...] MEDICARE [facility] Care Teams Shift Boss Relationship Specialty Start Date End Date Prem Blanchard MD [address] [place] [address] [address] [place] PCP - General Internal Medicine 02/01/16
== END ==
LOC: HO.CARD 08:49
PROVIDERS: PCP Internal Medicine
DX: R94.39 Abnormal result of other cardiovascular function study (principal)
CPT/HCPCS: 78452; 93017; A9500

== ENCOUNTER → 2024-08-27 08:51 | Outpatient (BNV) | payer MEDICARE, SELFPAY | PROVIDERS: PCP Internal Medicine | DX: R94.31 Abnormal electrocardiogram [ECG] [EKG] (principal) | CPT/HCPCS: 78452; 93016; 93018 ==

== ENCOUNTER 2024-09-10 10:44 | Outpatient (AMB) | payer MEDICARE, SELFPAY ==
--- OUTSIDE RECORDS SUMMARY | 2024-09-10 10:52 | XMS_ITS | Clinical Summary ---
Author Organization [facility] [address] [facility] l[address] Address [address] [place] [address] Phone Care Team Providers Care Concrete Bucket Loader Name Role Phone Prem Blanchard MD [...] care for your loved ones. For example, children librarian or elderly care for an older adult? [...] 2024 , 01/11/2023, 12/02/2021, Additional history exists Social Influencers of Health Screening 05/27/2025 05/27/2024 Colorectal Cancer Screening: Colonoscopy 08/06/2028 08/07/2023 DTaP,Tdap,and Td Vaccines (3 - Td or Tdap) 10/01/2030 10/01/2020, 11/20/2015 RSV Immunization Adult Patients Completed 11/01/2022 Depression Screening Completed 05/27/2024 HIB Vaccines Aged Out No longer eligi [...] to Health Maintenance Results * Colonoscopy (08/07/2023) HM Colonoscopy no interpretation , abstracted Anatomical Region Laterality Modality Other us Historical Provider HEALTH MAINTENANCE Final Result from Last 3 Months or Most Recently Relevant to Health Maintenance Insurance MEDICARE [facility] Care Teams Concrete Bucket Loader Relationship Specialty Start Date End Date Prem Blanchard MD [address] [place] [address] [address] [place], [place] PCP - General Internal Medicine 02/01/16
--- OUTSIDE RECORDS SUMMARY | 2024-09-10 10:52 | XMS_ITS | Encounter Summary ---
Author Organization [facility] Address [address] [facility] [address] [place] [address] Phone Care Team Providers Care Estate Manager Name Role Phone Prem Blanchard MD Primary Care Provider [phone] Prem Blanchard MD Unavailable Melissa Arias RDCS Unavailable [email or web address] Encounter Details Date Type Department Care Team (Late st Contact Info) Description 11/20/2017 Ancillary Orders Virtual Department [address] [place] [address] Prem Blanchard MD [address] [place] [address] [place] [address] Breast screening Social History Tobacco Use Types Packs/Day Years Used Date Smoking Tobacco: Never Assessed Comments Unknown Sex and Gender Information Value Date Recorded Sex Assigned at Female 05/04/2021 7:58 PM EDT Legal Sex Female 9:56 PM EDT Gender Identity Female 05/04/2021 7:58 PM EDT Sexual Orientation Straight 05/04/2021 7: 58 PM EDT documented as of this encounter Plan of Treatment Upcoming Encounters Date Type Department Care Team (Late Contact Info) Description 06/18/2024 Procedure Pass [address] [address] 01/10/2025 2:45 PM EST Appointment [address] [address] Prem Blanchard MD [address] [place] [address] [address] [place] [address] documented as of this encounter Results * BI MAMMOGRAM SCREENING WITH TOMOSYNTHESIS WITH CAD (BILATERAL) (12/23/2017 10:26 AM EST) Anatomical Region Laterality Modality Breast Left, Breast Right, Breast Bilateral Bila teral Mammography 12/23/2017 10:4 6 AM EST Impressions 12/23/2017 10:49 AM EST No mammographic evidence of malignancy. Recommend routine annual surveillance. BI-RADS CATEGORY: 2 - Benign finding. DENSITY: There are scattered fibroglandular densities. POS - CDHMAMA Narrative 12/23/2017 10:49 AM EST 62-year-old female with no current breast symptoms. Comparison made to previous on 11/07/2016 and as far back as 04/10/2011. Interpretation made in conjunction with computer-aided detection and tomosynthesis. There are scattered areas of fibroglandular density. Stable benign right breast dermal calcifications. There are no suspicious masses, areas of architectural distortion, or suspicious clusters of microcalcifications. Procedure Note Nabila Ugalde MD - 12/23/2017 62-year-old female with no current breast symptoms. Comparison made toprevious on 11/07/2016 and as far back as 04/10/2011. Interpretation madein conjunction with computer-aided detection and tomosynthesis. There are scattered areas of fibroglandular density. Stable benign rightbreast dermal calcifications. There are no suspicious masses, areas of architectural distortion, orsuspicious clusters of microcalcifications. IMPRESSION: No mammographic evidence of malignancy. Recommend routine annualsurveillance. BI-RADS CATEGORY: 2 - Benign finding. DENSITY: There are scattered fibroglandular densities. POS - CDHMAMA us Prem Blanchard MD IMG MG EXAMS Final Res ult documented in this encounter Visit Diagnoses Diagnosis Breast screening Breast screening, unspecified Breast screening Breast screening, unspecified Visit for screening mammogram documented in this encounter Care Teams Estate Manager Relationship Specialty Start Date End Date Prem Blanchard MD [address] [place] [address] [address] [place] [address] PCP - General 12/02/16 Prem Blanchard MD [address] [place] [address] Dr [address] [place] [address] Historical LMR Provider 12/04/16 Melissa Arias, IRINA Historical LMR Provider 12/04/16 02/24/21 documented as of this encounter Additional Source Comments The information contained in this document represents components of the legal health record. It is not the complete legal health record.[facility]
--- NOTE | 2024-09-10 10:59 | MHC.OFFVIS ---
Vital Signs 09/10/24 11:00 Height 5 ft 4 in Weight 116 lb 13.52 oz BMI 20.1 BP 120/82 Blood Pressure Location Lt brachial Position Sitting Pulse 66 Intake Visit Reasons: follow up per NS Intake Note: Follow-up test results per Dr Lindsay feeling good Home Energy Auditor Required: No Allergies Chloroquine Phosphate Allergy (Intermediate, Uncoded 05/07/24 09:52) Hives Medication List - Last Reconciled 09/10/24 by Cory Lindsay MD aspirin 81 mg PO DAILY atorvastatin 10 mg PO BEDTIME 90 days calcium carbonate (Wander-Mint) 520 mg PO DAILY cholecalciferol (vitamin D3) 25 mcg PO DAILY fluticasone propionate 50 mcg/actuation (Flonase Allergy Relief) 2 sprays intranasal DAILY losartan 25 mg PO DAILY multivitamin 1 tab PO DAILY polyethylene glycol 3350 (Miralax) 17 grams PO DAILY vitamins A,C,A-qapo-yyxxyy 4,296 mcg-226 mg-90 mg (PreserVision AREDS) 1 cap PO BID HPI Comments Details: Fer comes for follow-up, nervous about her test results. Overall she has no new symptoms. She says she is pretty active in her current lifestyle. However she does not exercise and brisk walk on a regular basis. She denies any exertional chest pain or shortness of breath. Denies any orthopnea, PND, leg edema. No prolonged palpitation irregular heartbeat. As you are aware she underwent a coronary calcium score which showed heavy calcium burden in the LAD territory. She subsequently underwent exercise myocardial perfusion imaging which at 6 and half Mets with 5 minutes of treadmill exercise was negative for myocardial ischemia. She did achieve adequate age predicted maximum heart rate. [facility] Medical History Osteopenia Insomnia Pure hypercholesterolemia Allergic rhinitis Benign essential hypertension Osteoporosis Surgical History History of colonoscopy History of dilation and curettage History of tonsillectomy Family History Mother CHF (congestive heart failure) Diabetes Father Heart attack Brother Colon cancer Social History Housing: House Alcohol intake: current Alcohol intake frequency: does not drink Patient Tobacco Use Status: Never used Tobacco Tobacco use type: Cigarette e-Cigarette/Vaping Use: Never Used Second Hand Smoke Exposure: No service: No Current occupational status: retired Cognitive needs: No Hearing needs: No Vision needs: Yes (Glasses) Review of Systems Const Denies chills, Denies fatigue, Denies fever(s), Denies frequent falls, Denies weakness, Denies weight gain and Denies weight loss ENT Denies dizziness Card Denies chest pain, Denies leg edema, Denies lightheadedness, Denies palpitations, Denies dyspnea, Denies dyspnea on exertion, Denies orthopnea and Denies other (loss of consciousness) Resp Denies cough, Denies dyspnea and Denies dyspnea on exertion GI Denies hematochezia and Denies change in stool character Musc Denies abnormal gait, Denies muscle weakness, Denies numbness, Denies radiating pain into limb and Denies tingling Neuro Denies Abnormal speech present, Denies abnormal gait, Denies dizziness, Denies frequent falls, Denies numbness, Denies tingling and Denies weakness Endo Denies fatigue and Denies palpitations Physical Exam Vital Signs: Last Vital Signs Pulse 66 09/10/24 11:00 BP 120/82 09/10/24 11:00 BMI result Body Mass Index 20.1 Const General: cooperative, comfortable, no acute distress, alert, awake, Physically active and anxious Nutritional Appearance: thin Orientation/consciousness: patient oriented x3 Limitations: no limitations HEENT Head: Yes normocephalic and Yes atraumatic Neck Neck: Yes trachea midline, Yes supple and Yes no JVD Carotids: no bruits Resp Effort & Inspection: normal respiratory effort Auscultation: clear to auscultation bilaterally, no rales, no wheezes and diminished lung sounds Cardio Jugular venous distension: no JVD Palpation: normal PMI Rate: regular rate Rhythm: regular rhythm Heart sounds: S1 normal heart sound present, S2 normal heart sound present, no click, no gallops, no murmurs and no rubs GI Auscultation: normal bowel sounds Skin General skin exam: no rashes or lesions noted Neuro General: patient oriented x3 and no focal motor deficits Speech: No Abnormal speech present Extrem General: Yes no clubbing, cyanosis or edema Psych Appearance: grossly normal Assessment & Plan Assessment & Plan (1) Coronary artery calcification seen on computed tomography: Code(s): I25.10 - Atherosclerotic heart disease of [place] coronary artery without angina pectoris Category: Medical Plan: Coronary atherosclerosis based on coronary calcium score with heavy burden in the LAD territory with myocardial perfusion imaging within normal limits at moderate workload. Overall prognosis is decent. She is recommended management of coronary atherosclerosis and pathophysiology of coronary artery disease. Rationale for therapy was discussed. Her LDL is well optimized at 66. Continue to participate in regular physical activity and increase her exercise capacity was discussed. She should be on low-dose aspirin therapy. Continue aggressive control blood pressure. Advised to call me with any exertional symptoms. She shows understanding and agreement. Will follow up in the clinic in 1 year's time, sooner p.r.n.. Thank you for allowing me to partake in her care Coding Level of Care Code Est Pt Level 4 (71329) Complex EM visit Add On G2211 Diagnoses Coronary artery calcification seen on computed tomography I25.10
[2024-09-10 11:00] VITALS: BP 120/82; PULSE 66; BMI 20.1
== END 2024-09-10 11:23 | disposition home or self-care (01) ==
LOC: HO.HCS 10:45
PROVIDERS: PCP Internal Medicine; Visit Provider Internal Medicine Cardiovascular Disease
DX: I25.10 Atherosclerotic heart disease of native coronary artery without angina pectoris (principal)
CPT/HCPCS: 99214; G2211

== ENCOUNTER → 2024-09-10 10:44 | Outpatient (BNVA) | payer MEDICARE, SELFPAY | PROVIDERS: PCP Internal Medicine; Visit Provider Internal Medicine Cardiovascular Disease | DX: I25.10 Atherosclerotic heart disease of native coronary artery without angina pectoris (principal) | CPT/HCPCS: 99212 ==

== ENCOUNTER 2024-09-21 07:55 | Outpatient (REF) | payer MEDICARE, SELFPAY ==
--- OUTSIDE RECORDS SUMMARY | 2024-09-21 07:58 | XMS_ITS | Clinical Summary ---
Author Organization [facility] [address] [facility] lding Address [address] [place] [address] Phone Care Team Providers Care Organ Pipe Maker Metal Name Role Phone Prem Blanchard MD Primary [...] Colon cancer Brother 1 Dementia Brother 2 Efr Heart attack Father Evgeny Heart disease Father [...] care for your loved ones. For example, early childhood assistant or elderly care for an older adult? [...] Recently Relevant to Health Maintenance Insurance MEDICARE [facility] Care Teams Organ Pipe Maker Metal Relationship Specialty Start Date End Date Prem Blanchard MD [address] [place] [address] [address] [place], [place] PCP - General Internal Medicine 02/01/16
--- OUTSIDE RECORDS SUMMARY | 2024-09-21 07:58 | XMS_ITS | Encounter Summary ---
Author Organization [facility] Address [address] [facility] [address] [place] [address] Phone Care Team Providers Care Maintenance Leader Name Role Phone Prem Blanchard MD Primary Care Provider [phone] Prem Blanchard MD Unavailable Melissa Arias RDCS Unavailable [email or web address] Encounter Details Date Type Department Care Team (Late st Contact Info) Description 11/20/2017 Ancillary Orders Virtual Department [address] [place] [address] Prem Blanchard MD [address] [place] [address] [place] [address] Breast screening Social History Tobacco Use Types [...] (Late Contact Info) Description 06/18/2024 Procedure Pass [address] [address] 01/10/2025 2:45 PM EST Appointment [address] [address] Prem Blanchard MD [address] [place] [address] [address] [place] [address] documented as of this encounter Results * [...] mammogram documented in this encounter Care Teams Maintenance Leader Relationship Specialty Start Date End Date Prem Blanchard MD [address] [place] [address] Dr [address] [place] [address] PCP - General 12/02/16 Prem Blanchard MD [address] [place] [address] Dr [address] [place] [address] Historical LMR Provider 12/04/16 Melissa Arias, IRINA Historical LMR Provider 12/04/16 02/24/21 documented as of this encounter Additional Source Comments The information contained in this document represents components of the legal health record. It is not the complete legal health record.[facility]
[2024-09-21 11:14] LABS: MANUAL DIFF FLAG NO
[2024-09-21 11:30] LABS: Hematocrit 36.6 % (37.0-47.0); Hemoglobin 11.6 g/dl (12.0-16.0); Imm Gran Abs Auto 0.01 X10*3/uL (0.00-0.03); Imm Gran Pct Auto 0.2 % (0.0-0.4); Lymphocytes Absolute Auto 1.4 X10*3/uL (1.2-4.9); Mean Corpuscular HGB Conc 31.7 g/dl (31.0-35.0); Mean Corpuscular Hemoglobin 28.4 pg (27.0-33.0); Mean Corpuscular Volume 89.7 fL (80.0-98.0); NRBC Abs Auto 0.000 X10*3/uL (0.0-0.012); NRBC Pct Auto 0.0 /100WBC (0.0-0.2); Platelet Count 149 X10*3/uL (160-400); Red Blood Count 4.08 X10*6/uL (4.20-5.50); White Blood Count 4.9 X10*3/uL (4.8-10.8)
[2024-09-21 11:57] LABS: Appearance Urine Clear; Glucose Urine UA Negative (Negative); PH 7.5 (5.0-9.0); Specific Gravity - Urine <= 1.005 (1.005-1.025); UMIC TRIGGER UACC YES
[2024-09-21 12:00] LABS: Alanine Aminotransferase 22 U/L (0-31); Albumin Level 4.3 g/dL (3.5-5.0); Alkaline Phosphatase 53 U/L (39-117); Anion Gap 8 (12-20); Aspartate Amino Transferase 37 U/L (5-31); Blood Urea Nitrogen 13 mg/dL (9-16); Calcium 9.3 mg/dL (8.4-10.2); Carbon Dioxide 31 mmol/L (22-29); Chloride 105 mmol/L (96-108); Cholesterol 128 mg/dL (<200); Estimated Glomerular Filt Rate > 60; HDL Cholesterol 48 mg/dL (>40); Potassium 3.9 mmol/L (3.3-5.1); Sodium 140 mmol/L (135-145); Total Protein 7.2 g/dL (6.5-8.0); Triglycerides 81 mg/dL (<150)
[2024-09-21 12:20] LABS: UACC Culture Trigger YES
== END 2024-09-21 07:56 | disposition home or self-care (01) ==
LOC: HO.WFDLDS 07:55
PROVIDERS: Visit Provider Internal Medicine
DX: D64.9 Anemia, unspecified (principal); E78.00 Pure hypercholesterolemia, unspecified; E55.9 Vitamin D deficiency, unspecified
CPT/HCPCS: 36415; 80053; 80061; 81001; 82306; 84443; 85025; 87086

== ENCOUNTER 2024-09-29 09:28 | Outpatient (AMB) | payer MEDICARE, SELFPAY ==
[2024-09-29 09:30] VITALS: BP 122/78; PULSE 70; O2SAT 98; BMI 19.9
--- NOTE | 2024-09-29 09:30 | A.OFFPC_ITS ---
Vital Signs 09/29/24 09:30 Height 5 ft 4 in Weight 116 lb 2 oz BMI 19.9 BP 122/78 Blood Pressure Location Lt brachial Position Sitting Pulse 70 Pulse Source Pulse Oximeter Pulse Oximetry (%) 98 Oxygen Delivery Method Room Air Intake Visit Reasons: 6mth f/u Process Mold Technician Required: No Accompanied by: Self / Same As Patient Allergies Chloroquine Phosphate Allergy (Intermediate, Uncoded 09/29/24 10:10) Hives Medication List - Last Reconciled 09/29/24 by Prem Blanchard MD aspirin 81 mg PO DAILY atorvastatin 10 mg PO BEDTIME 90 days calcium carbonate (Wander-Mint) 520 mg PO DAILY cholecalciferol (vitamin D3) 25 mcg PO DAILY fluticasone propionate 50 mcg/actuation (Flonase Allergy Relief) 2 sprays intranasal DAILY losartan 25 mg PO DAILY multivitamin 1 tab PO DAILY polyethylene glycol 3350 (Miralax) 17 grams PO DAILY vitamins A,C,R-rcej-jqhwrt 4,296 mcg-226 mg-90 mg (PreserVision AREDS) 1 cap PO BID Tobacco use date assessed: 09/29/24 Fall risk assessment: No Falls in past year Last assessed Fall Risk: 09/29/24 Dental Screening Dental Screen Date: 09/29/24 Did you have a dental visit in the last 12 months?: Yes Did you have a dental problem in the last 6 months where you did not have access to dental care?: No Was dental information given to patient?: Patient has dentist HPI 6mth f/u HPI Details Patient comes in today for her follow up visit States that she feels okay She denies any headaches or dizziness Denies any chest pains, no SOB No nausea/vomiting, no abdominal pain No change in bowel habits noted She had her follow up labs done last week - to discuss her results [facility] Medical History Osteopenia Insomnia Pure hypercholesterolemia Allergic rhinitis Benign essential hypertension Osteoporosis Surgical History History of colonoscopy History of dilation and curettage History of tonsillectomy Family History Mother CHF (congestive heart failure) Diabetes Father Heart attack Brother Colon cancer Social History Housing: House Alcohol intake: current Alcohol intake frequency: does not drink Patient Tobacco Use Status: Never used Tobacco Tobacco use type: Cigarette e-Cigarette/Vaping Use: Never Used Second Hand Smoke Exposure: No service: No Current occupational status: retired Cognitive needs: No Hearing needs: No Vision needs: Yes (Glasses) Questionnaire PHQ-9 Over the last 2 weeks, how often have you been bothered by any of the following problems? 1. Little interest or pleasure in doing things: not at all 2. Feeling down, depressed, or hopeless: not at all 3. Trouble falling or staying asleep, or sleeping too much: several days 4. Feeling tired or having little energy: several days 5. Poor appetite or overeating: not at all 6. Feeling bad about yourself - or that you are a failure or have let yourself or your family down: not at all 7. Trouble concentrating on things, such as reading the newspaper or watching television: not at all 8. Moving or speaking so slowly that other people could have noticed. Or the opposite - being so fidgety or restless that you have been moving around a lot more than usual: not at all 9. Thoughts that you would be better off or of hurting yourself in some way: not at all Total score: 2 Depression Screening Interpretation: Negative Depression Screening Done: Yes 29080 - PHQ-9 Billing: Yes Source: Developed by Drs. Palomo Cueva, Trish Nunez, Dawson Zheng and colleagues, with an educational bre from [employer]. Thrive Questionnaire Date Thrive assessed: 09/29/24 I am a: Patient What is your living situation today?: I have a steady place to live Within the past 12 months, did the food you bought not last and you didn't have the money to get more?: Never true Within the past 12 months, did you worry whether your food would run out before you got money to buy more?: Never true Do you have trouble paying for medicines?: No Do you have trouble getting transportation to medical appointments?: No Do you have trouble paying your heating and electricity bill?: No Do you have trouble taking care of your child, family member or friend?: No Do you have trouble with day-to-day activities such as bathing, preparing meals, shopping, managing finances, etc.?: No Are you currently unemployed and looking for a job?: No Are you interested in more education?: No Please select the resources that you would like help with: None Currently or been in a relationship where the following occur: No concerns reported THRIVE Score: 0 AUDIT C Alcohol Use Questionnaire (AUDIT-C) 1. How often do you have a drink containing alcohol?: Monthly or less 2. How many drinks containing alcohol do you have on a typical day when you are drinking?: 1 or 2 3. How often do you have six or more drinks on one occasion?: Never Total Score: 1 Score Reviewed/Action Taken: Yes NIKHIL-7 AMB Questionnaire NIKHIL-7 Date NIKHIL - 7 assessed: 09/29/24 Feeling nervous, anxious, or on edge: 1 = Several days Not being able to stop or control worryin = Not at all Worrying too much about different things: 0 = Not at all Trouble relaxin = Not at all Being so restless that it is hard to sit still: 0 = Not at all Becoming easily annoyed or irritable: 0 = Not at all Feeling afraid as if something awful might happen: 1 = Several days Total NIKHIL-7 score (0-4 normal; 5-9 mild; 10-14 moderate; 15-21 severe): 2 Source: Developed by Drs. Palomo Cueva, Trish Nunez, Dawson Zheng and colleagues, with an educational bre from [employer]. Review of Systems Const Denies chills, Reports difficulty sleeping (at times), Denies fatigue, Denies fever(s) and Denies headache(s) ENT Denies dysphagia, Denies dizziness, Denies headache(s), Reports hearing loss, Denies odynophagia, Reports tinnitus (in both ears, more noticeable at night) and Denies sore throat Card Denies chest pain, Denies palpitations and Denies dyspnea Resp Denies chest congestion, Reports cough (on and off, non-productive, but feels like this has improved lately), Denies pain with cough, Denies dyspnea and Denies wheezing GI Denies abdominal pain, Denies constipation, Denies dysphagia, Denies heartburn, Denies diarrhea, Denies nausea, Denies odynophagia and Denies vomiting Denies difficulty voiding, Denies nocturia, Denies dysuria and Denies urinary urgency Musc Details: on and off mild pain over the heels bilaterally Denies back pain, Reports numbness (on and off, in some of the toes of both feet) and Reports tingling (on and off, in some of the toes of both feet) Skin/Breast Denies rash Neuro Denies dizziness, Denies headache(s), Reports numbness (on and off, in some of the toes of both feet) and Reports tingling (on and off, in some of the toes of both feet) Psych Denies depression Endo Denies fatigue and Denies palpitations Aller/Immun Denies wheezing Physical exam (Primary Care) Vital Signs: Last Vital Signs Pulse 70 09/29/24 09:30 BP 122/78 09/29/24 09:30 Pulse Ox 98 09/29/24 09:30 Oxygen Delivery Method Room Air 09/29/24 09:30 BMI result Body Mass Index 19.9 Tobacco/Smoking Status: Tobacco use Status Tobacco use date assessed 09/29/24 09/29/24 09:36 Patient Tobacco Use Status Never used Tobacco 09/29/24 09:36 Tobacco use type Cigarette 09/29/24 09:36 e-Cigarette/Vaping Use Never Used 09/29/24 09:36 PHQ-9: PHQ-9 Score PHQ-9: Total score 2 09/29/24 10:12 Depression Screening Interpretation: Negative Thrive Assessment: Date of Thrive Assessment Date Thrive assessed 09/29/24 09/29/24 09:36 Currently or been in a relationship where the following occur: No concerns reported Const General: no acute distress and alert HENMT Throat: Yes posterior oropharynx normal and Yes tonsils normal (no TP congestion) Neck Neck: Yes supple and No lymphadenopathy Thyroid: Thyroid normal Resp Auscultation: clear to auscultation bilaterally, no crackles, no rales and no wheezes Cardio Rate: regular rate Rhythm: regular rhythm Heart sounds: no murmurs GI Palpation (GI): Soft to palpation and nontender Auscultation: normal bowel sounds General: Yes no CVA tenderness Back/Spine/Pelvis Back: no CVA tenderness Thoracic/Lumbar Spine: No lumbar spinal tenderness Skin Rashes: no rashes Extrem General: Yes no clubbing, cyanosis or edema Results Reviewed Results Reviewed: Laboratory Tests 09/21/24 09/21/24 07:58 08:03 WBC 4.9 Hgb 11.6 L Hct 36.6 L Plt Count 149 L Sodium 140 Potassium 3.9 Creatinine 0.79 Estimated GFR > 60 Fasting Glucose 85 Calcium 9.3 D AST 37 H ALT 22 Triglycerides 81 Cholesterol 128 LDL Cholesterol, Calc 64 HDL Cholesterol 48 25-OH Vitamin D Total 67.0 TSH 2.82 Ur Specific [place] <= 1.005 Urine Protein Negative Urine Glucose (UA) Negative Urine Blood Negative Urine Nitrite Negative Ur Leukocyte Esterase Small (1+) H Coding Level of Care Code Est Pt Level 4 (63453) Diagnoses Coronary artery calcification seen on computed tomography I25.10 Pure hypercholesterolemia E78.00 Benign essential hypertension I10 Recurrent dry cough R05.8 Gastroesophageal reflux disease without esophagitis K21.9 Esophagitis presence: without esophagitis Allergic rhinitis, unspecified seasonality, unspecified trigger J30.9 Allergic rhinitis seasonality: unspecified Allergic rhinitis trigger: unspecified Irritable bowel syndrome with constipation K58.1 Irritable bowel syndrome type: with constipation Age-related osteoporosis without current pathological fracture M81.0 Osteoporosis type: age-related Presence of current pathological fracture: without current pathological fracture Additional Codes PHQ-9 - 94431 - PHQ-9 Billing: Yes ([id number]) Assessment & Plan Assessment & Plan (1) Coronary artery calcification seen on computed tomography: Code(s): I25.10 - Atherosclerotic heart disease of nikolai coronary artery without angina pectoris Category: Medical Plan: Her chest CT done back in December 2023 revealed (+) moderate LAD calcification, which prompted cardiology referral (also in part, due to her strong family Hx of heart disease) She was eventually sent by cardiology for coronary CT at [facility], which revealed (+) coronary calcium score with heavy burden in the LAD territory She also underwent cardiac stress testing and myocardial perfusion imaging, which were within normal limits at moderate workload She was recommended to continue with aggressive medical management for primary prevention Continue Aspirin 81 mg QD and Atorvastatin 10 mg QD - she is reminded of goal of LDL cholesterol at <70 mg/dl Follow up with cardiology as scheduled (yearly) (2) Pure hypercholesterolemia: Code(s): E78.00 - Pure hypercholesterolemia, unspecified Category: Medical Plan: Results of her labs done last week reviewed and discussed with patient - she is advised that her LDL cholesterol level is now at goal at 64 mg/dl (she was at 100 mg/dl last year) Continue Atorvastatin 10 mg Q HS Will have her recheck her labs and fasting lipids in 6 months for follow up (3) Benign essential hypertension: Code(s): I10 - Essential (primary) hypertension Category: Medical Plan: Reinforced low sodium diet - goal is systolic BP of at least 130 mm or less Continue Losartan 25 mg QD (4) Recurrent dry cough: Code(s): R05.8 - Other specified cough Category: Medical Plan: Patient reports that she is still experiencing a recurrent, non-productive cough, which has been going on for over a couple of years, but notes that her cough seems to have subsided somewhat over the past couple of months and she is now agreeing that her cough is likely due to some allergies (she has a pet cat at home) She is now seeing pulmonary [place] [facility] [place] up and further evaluation for this issue Chest x-rays and PFTs done recently all came back normal Chest CT done in December 2023 also came out normal although it revealed the moderate LAD calcifications mentioned above She is currently maintained on Fluticasone 50 mcg nasal spray for presumptive Tx of nasal allergies and is on a trial of PPI (Omeprazole) Of note, patient had an upper GI series done in 01/2021 that showed (+) mild gastroesophageal reflux only into the distal third of the esophagus without appreciable findings of acute esophagitis (5) GERD (gastroesophageal reflux disease): Code(s): K21.9 - Gastro-esophageal reflux disease without esophagitis Category: Medical Qualifiers: Esophagitis presence: without esophagitis Qualified Code(s): K21.9 - Gastro-esophageal reflux disease without esophagitis Plan: Upper GI series done in January 2021 revealed (+) mild reflux into the distal third of the esophagus Patient could not tolerate Omeprazole 20 mg in the past as she reported experiencing frequent abdominal bloating, gas and occasional diarrhea while she was on Omeprazole and was taking Famotidine 20 mg BID PRN instead for a while but is now back on Omeprazole 20 mg QD to see if this will help resolve her recurrent coughing Reinforced dietary restrictions for GERD (6) Allergic rhinitis: Code(s): J30.9 - Allergic rhinitis, unspecified Category: Medical Qualifiers: Allergic rhinitis seasonality: unspecified Allergic rhinitis trigger: unspecified Qualified Code(s): J30.9 - Allergic rhinitis, unspecified Plan: Continue Fluticasone 50 mcg nasal spray QD PRN (7) IBS (irritable bowel syndrome): Code(s): K58.9 - Irritable bowel syndrome, unspecified Category: Medical Qualifiers: Irritable bowel syndrome type: with constipation Qualified Code(s): K58.1 - Irritable bowel syndrome with constipation Plan: Patient's symptoms here are predominantly more of constipation Continue Miralax 17 gm QD (8) Osteoporosis: Code(s): M81.0 - Age-related osteoporosis without current pathological fracture Category: Medical Qualifiers: Osteoporosis type: age-related Presence of current pathological fracture: without current pathological fracture Qualified Code(s): M81.0 - Age- related osteoporosis without current pathological fracture Plan: Her repeat BMD done in April 2024 revealed (+) osteoporosis, with the lowest T- score value of -2.5 in the left femoral neck Her BMD has declined slightly from previous in her left total hip and left femoral neck area Patient is again encouraged to continue her daily Vitamin-D and oral calcium supplements She was treated with oral Ibandronate x 5 years (from 2018 to 2023) and due to the decline in her recent BMD, will need to consider additional Tx options, including Prolia Patient would like to hold off and discuss this again at her next appt Fall precautions reinforced Plan Follow up in 6 months Orders: Orders Complete Blood Count Auto Diff 6 Months D64.9 - Anemia, unspecified Comprehensive [place]. Panel Fast 6 Months E78.00 - Pure hypercholesterolemia, unspecified Lipid Panel 6 Months E78.00 - Pure hypercholesterolemia, unspecified UA CC w/rflx Micro + Cult 6 Months R30.0 - Dysuria TSH reflex Free T4 6 Months E78.00 - Pure hypercholesterolemia, unspecified Vitamin D 25-OH Total 6 Months E55.9 - Vitamin D deficiency, unspecified Hemoglobin A1c 6 Months R73.9 - Hyperglycemia, unspecified
--- OUTSIDE RECORDS SUMMARY | 2024-09-29 09:57 | XMS_ITS | Clinical Summary ---
Author Organization [facility] [address] [facility] lding Address [address] [place] [address] Phone Care Team Providers Care Gravity Flow Irrigator Name Role Phone Prem Blanchard MD Primary [...] Recently Relevant to Health Maintenance Insurance MEDICARE [facility] Care Teams Gravity Flow Irrigator Relationship Specialty Start Date End Date Prem Blanchard MD [address] [place] [address] [address] [place], [place] PCP - General Internal Medicine 02/01/16
--- OUTSIDE RECORDS SUMMARY | 2024-09-29 09:57 | XMS_ITS | Encounter Summary ---
Author Organization [facility] Address [address] [facility] [address] [place] [address] Phone Care Team Providers Care Field Health Officer Name Role Phone Prem Blanchard MD Primary Care Provider [phone] Prem Blanchard MD Unavailable [phone] Melissa Arias RDCS Unavailable [email or web address] Encounter Details Date Type Department Care Team (Late st Contact Info) Description 11/20/2017 Ancillary Orders Virtual Department [address] [place] [address] Prem Blanchard MD [address] [place] [address] [place] [address] Breast screening Social History Tobacco Use Types [...] (Late Contact Info) Description 06/18/2024 Procedure Pass [address] [address] 01/10/2025 2:45 PM EST Appointment [address] [address] Prem Blanchard MD [address] [place] [address] [place] [address] documented as of this encounter Results * [...] mammogram documented in this encounter Care Teams Field Health Officer Relationship Specialty Start Date End Date Prem Blanchard MD [address] [place] [address] Dr [address] [place] [address] PCP - General 12/02/16 Prem Blanchard MD [address] [place] [address] Dr [address] [place] [address] Historical LMR Provider 12/04/16 Melissa Arias, IRINA Historical LMR Provider 12/04/16 02/24/21 documented as of this encounter Additional Source Comments The information contained in this document represents components of the legal health record. It is not the complete legal health record.[facility]
== END 2024-09-29 10:32 | disposition home or self-care (01) ==
LOC: HO.HMCH 09:29
PROVIDERS: PCP Internal Medicine; Visit Provider Internal Medicine
DX: I25.10 Atherosclerotic heart disease of native coronary artery without angina pectoris (principal); E78.00 Pure hypercholesterolemia, unspecified; I10 Essential (primary) hypertension; R05.8 Other specified cough; K21.9 Gastro-esophageal reflux disease without esophagitis; J30.9 Allergic rhinitis, unspecified; K58.1 Irritable bowel syndrome with constipation; M81.0 Age-related osteoporosis without current pathological fracture

== ENCOUNTER → 2024-09-29 09:28 | Outpatient (BNVA) | payer MEDICARE, SELFPAY | PROVIDERS: PCP Internal Medicine; Visit Provider Internal Medicine | DX: I25.10 Atherosclerotic heart disease of native coronary artery without angina pectoris (principal); I10 Essential (primary) hypertension; E78.00 Pure hypercholesterolemia, unspecified; R05.8 Other specified cough; K21.9 Gastro-esophageal reflux disease without esophagitis; J30.9 Allergic rhinitis, unspecified; K58.1 Irritable bowel syndrome with constipation; M81.0 Age-related osteoporosis without current pathological fracture; Z13.31 Encounter for screening for depression | CPT/HCPCS: 96127; 99212 ==

== ENCOUNTER 2024-11-04 12:51 | Outpatient (REF) | payer MEDICARE, SELFPAY ==
--- NOTE | ~2024-11-04 | CT_ITS ---
CLINICAL HISTORY: R91.8 - Other nonspecific abnormal finding of lung field CT chest without contrast Comparison: CT/NE/SR - CT CHEST WITHOUT IV CONTRAST - 11/12/23 16:41 EDT Findings: The heart is normal size. Awjf-dy-hseutxtn coronary calcification. No pericardial effusion. Nonaneurysmal ascending aorta. The visualized thyroid and mediastinum are unremarkable. No chest wall lesions. The trachea and central bronchi are patent. No dense consolidation, pleural effusion or pneumothorax. A 3 mm nodule in the right lung apex is stable image 16 series 4. No new or enlarging nodules or masses. The upper abdomen is unremarkable. The bones are intact. IMPRESSION: 1. Unchanged 3 mm right apical nodule. No new or enlarging nodules or masses. 2. No acute cardiopulmonary disease. This document has been electronically signed by: Jia Sampson MD on 11/05/2024 09:07:46
--- OUTSIDE RECORDS SUMMARY | 2024-11-04 14:54 | XMS_ITS | Encounter Summary ---
Author Organization [facility] Address [address] [facility] [address] [place] [address] Phone Care Team Providers Care Label Maker Name Role Phone Prem Blanchard MD Primary Care Provider [phone] Prem Blanchard MD Unavailable [phone] Encounter Details Date Type Department Care Team (Late Contact Info) Description 07/03/2022 Transcribe Orders Virtual Department [address] [place] [address] Prem Blanchard MD [address] [place] [address] [place] [address] Breast screening (Primary Dx) Social History Tobacco Use Types Packs/Day Years Used Date Smoking Tobacco: Never Alcohol Use Standard Drinks/Week Comments Not Currently 0 (1 standard drink = 0.6 oz pur e alcohol) Education Answer Date Recorded Are you interested in more education? Not on aleksandra e 06/14/2022 Are you concerned about learning? Not on file 06/14/2022 No 06/14/2022 No 06/14/2022 Comments No Sex and Gender Information Value Date Recorded Sex Assigned at Female 05/04/2021 7:58 PM EDT Legal Sex Female 9:56 PM EDT Gender Identity Female 05/04/2021 7:58 PM EDT Sexual Orientation Straight 05/04/2021 7: 58 PM EDT documented as of this encounter Plan of Treatment Upcoming Encounters Date Type Department Care Team (Late Contact Info) Description 06/18/2024 Procedure Pass [address] [address] 01/10/2025 2:45 PM EST Appointment [address] [address] Prem Blanchard MD [address] [place] [address] [place] [address] documented as of this encounter Results * BI MAMMOGRAM SCREENING WITH TOMOSYNTHESIS WITH CAD (BILATERAL) (07/26/2022 10:16 AM EDT) Anatomical Region Laterality Modality Breast Left, Breast Right, Breast Bilateral Bila teral Mammography 07/26/2022 10:3 4 AM EDT Impressions 07/26/2022 10:40 AM EDT No findings suspicious for malignancy are identified. In the absence of a worrisome palpable abnormality, annual screening mammography is recommended. BI-RADS CATEGORY: 2 - Benign finding. DENSITY: There are scattered fibroglandular densities. Narrative 07/26/2022 10:40 AM EDT AVAILABLE COMPARISON: 05/07/2021 through 07/05/2003 Bilateral 3-D tomosynthesis with 2-D reconstructions in the CC and MLO projection. Computer-aided detection system was utilized. No new mass, asymmetry, architectural distortion or suspicious calcifications have become apparent in either breast. Chronic asymmetric density right upper outer quadrant unchanged for years. Procedure Note Marek Mata MD - 07/26/2022 AVAILABLE COMPARISON: 05/07/2021 through 07/05/2003 Bilateral 3-D tomosynthesis with 2-D reconstructions in the CC and MLOprojection. Computer-aided detection system was utilized. No new mass, asymmetry, architectural distortion or suspiciouscalcifications have become apparent in either breast. Chronic asymmetric density right upper outer quadrant unchanged foryears. IMPRESSION: No findings suspicious for malignancy are identified. In the absence of aworrisome palpable abnormality, annual screening mammography isrecommended. BI-RADS CATEGORY: 2 - Benign finding. DENSITY: There are scattered fibroglandular densities. Prem Blanchard MD IMG MG EXAMS Final Res ult documented in this encounter Visit Diagnoses Diagnosis Breast screening- Primary Breast screening, unspecified Breast screening Breast screening, unspecified Visit for screening mammogram documented in this encounter Care Teams Label Maker Relationship Specialty Start Date End Date Prem Blanchard MD [address] [place] [address] [place] [address] PCP - General 12/02/16 Prem Blanchard MD [address] [place] [address] [place] [address] Historical LMR Provider 12/04/16 documented as of this encounter Additional Source Comments The information contained in this document represents components of the legal health record. It is not the complete legal health record.[facility]
--- OUTSIDE RECORDS SUMMARY | 2024-11-04 14:54 | XMS_ITS | Encounter Summary ---
Author Organization [facility] Address [address] [facility] [address] [place] [address] Phone Care Team Providers Care Meters Superintendent Name Role Phone Prem Blanchard MD Primary Care Provider [phone] Prem Blanchard MD Unavailable [phone] Melissa Arias RDCS Unavailable [email or web address] Encounter Details Date Type Department Care Team (Late st Contact Info) Description 11/20/2017 Ancillary Orders Virtual Department [address] [place] [address] Prem Blanchard MD [address] [place] [address] [place] [address] Breast screening Social History Tobacco Use Types [...] (Late Contact Info) Description 06/18/2024 Procedure Pass [address] [address] 01/10/2025 2:45 PM EST Appointment [address] [address] Prem Blanchard MD [address] [place] [address] [place] [address] documented as of this encounter Results * [...] mammogram documented in this encounter Care Teams Meters Superintendent Relationship Specialty Start Date End Date Prem Blanchard MD [address] [place] [address] Dr [address] [place] [address] PCP - General 12/02/16 Prem Blanchard MD [address] [place] [address] Dr [address] [place] [address] Historical LMR Provider 12/04/16 Melissa Arias, IRINA Historical LMR Provider 12/04/16 02/24/21 documented as of this encounter Additional Source Comments The information contained in this document represents components of the legal health record. It is not the complete legal health record.[facility]
--- OUTSIDE RECORDS SUMMARY | 2024-11-04 14:54 | XMS_ITS | Encounter Summary ---
Author Organization [facility] Address [address] [facility] [address] [place] [address] Phone Care Team Providers Care Irrigation Equipment Mechanic Name Role Phone Prem Blanchard MD Primary Care Provider [phone] Prem Blanchard MD Unavailable [phone] Encounter Details Date Type Department Care Team (Late Contact Info) Description 07/03/2022 Procedure Pass [address] [address] Social History Tobacco Use Types Packs/Day Years [...] (Late Contact Info) Description 06/18/2024 Procedure Pass [address] [address] 01/10/2025 2:45 PM EST Appointment [facility], [address] [place] [address] Prem Blanchard MD [address] [place] [address] [place] [address] documented as of this encounter Visit Diagnoses Not on filedocumented in this encounter Care Teams Irrigation Equipment Mechanic Relationship Specialty Start Date End Date Prem Blanchard MD [address] [place] [address] [place] [address] PCP - General 12/02/16 Prem Blanchard MD [address] [place] [address] [place] [address] Historical LMR Provider 12/04/16 documented as of this encounter Additional Source Comments The information contained in this document represents components of the legal health record. It is not the complete legal health record.[facility]
--- OUTSIDE RECORDS SUMMARY | 2024-11-04 14:54 | XMS_ITS | Encounter Summary ---
Author Organization [facility] Address [address] [place] [address] Phone Care Team Providers Care Skin Grader Name Role Phone Prem Blanchard MD Primary Care Provider [phone] Prem Blanchard MD Unavailable [phone] Encounter Details Date Type Department Care Team (Late st Contact Info) Description 09/09/2023 Procedure Pass [facility], [address] [address] Social History Tobacco Use Types Packs/Day Years Used Date Smoking Tobacco: Never Alcohol Use Standard Drinks/Week Comments Not Currently 0 (1 standard drink = 0.6 oz pur e alcohol) Education Answer Date Recorded Are you interested in more education? Not on aleksandra e 06/14/2022 Are you concerned about learning? Not on file 06/14/2022 No 06/14/2022 No 06/14/2022 Digital Access Answer Date Recorded No 07/15/2022 No 07/15/2022 Reliable internet access at home? Not on file 07/15/2022 Device with a working camera? Not on file Comments No Sex and Gender Information Value Date Recorded Sex Assigned at Female 05/04/2021 7:58 PM EDT Legal Sex Female 9:56 PM EDT Gender Identity Female 05/04/2021 7:58 PM EDT Sexual Orientation Straight 05/04/2021 7: 58 PM EDT documented as of this encounter Plan of Treatment Upcoming Encounters Date Type Department Care Team (Late st Contact Info) Description 06/18/2024 Procedure Pass [address] [address] 01/10/2025 2:45 PM EST Appointment [address] [address] Prem Blanchard MD [address] [place] [address] [place] [address] documented as of this encounter Visit Diagnoses Not on filedocumented in this encounter Care Teams Skin Grader Relationship Specialty Start Date End Date Prem Blanchard MD [address] [place] [address] [place] [address] PCP - General 12/02/16 Prem Blanchard MD [address] [place] [address] [place] [address] Historical LMR Provider 12/04/16 documented as of this encounter Additional Source Comments The information contained in this document represents components of the legal health record. It is not the complete legal health record.[facility]
--- OUTSIDE RECORDS SUMMARY | 2024-11-04 14:55 | XMS_ITS | Encounter Summary ---
Author Organization [facility] Address [address] [facility] [address] [place] [address] Phone Care Team Providers Care Sand Car Worker Name Role Phone Prem Blanchard MD Primary Care Provider [phone] Prem Blanchard MD Unavailable [phone] Unavailable [email or web address] Encounter Details Date Type Department Care Team (Late st Contact Info) Description 02/25/2020 Procedure Pass [address] [address] Social History Tobacco Use Types Packs/Day Years Used Date Smoking Tobacco: Never Assessed Comments No Sex and Gender Information Value Date Recorded Sex Assigned at Female 05/04/2021 7:58 PM EDT Legal Sex Female 9:56 PM EDT Gender Identity Female 05/04/2021 7:58 PM EDT Sexual Orientation Straight 05/04/2021 7: 58 PM EDT documented as of this encounter Plan of Treatment Upcoming Encounters Date Type Department Care Team (Late st Contact Info) Description 06/18/2024 Procedure Pass [address] [address] 01/10/2025 2:45 PM EST Appointment [address] [address] Prem Blanchard MD [address] [place] [address] [place] [address] documented as of this encounter Visit Diagnoses Not on filedocumented in this encounter Care Teams Sand Car Worker Relationship Specialty Start Date End Date Prem Blanchard MD [address] [place] [address] [place] [address] PCP - General 12/02/16 Prem Blanchard MD [address] [place] [address] [place] [address] Historical LMR Provider 12/04/16 Melissa Arias, IRINA Historical LMR Provider 12/04/16 02/24/21 documented as of this encounter Additional Source Comments The information contained in this document represents components of the legal health record. It is not the complete legal health record.[facility]
--- OUTSIDE RECORDS SUMMARY | 2024-11-04 14:55 | XMS_ITS | Encounter Summary ---
Author Organization [facility] Address [address] [facility] [address] [place] [address] Phone Care Team Providers Care Fire Protection Specialist Name Role Phone Prem Blanchard MD Primary Care Provider [phone] Prem Blanchard MD Unavailable [phone] Melissa Arias RDCS Unavailable [email or web address] Encounter Details Date Type Department Care Team (Late st Contact Info) Description 02/02/2021 Transcribe Orders Virtual Department [address] [place] [address] Prem Blanchard MD [address] [place] [address] [place] [address] Breast screening (Primary Dx) Social History Tobacco [...] st Contact Info) Description 06/18/2024 Procedure Pass [address] [address] 01/10/2025 2:45 PM EST Appointment [address] [address] Prem Blanchard MD [address] [place] [address] Dr Dash [facility] [place] [address] documented as of this encounter Results * BI MAMMOGRAM SCREENING WITH TOMOSYNTHESIS WITH CAD (BILATERAL) (05/07/2021 2:08 PM EDT) Anatomical Region Laterality Modality Breast Left, Breast Right, Breast Bilateral Bila teral Mammography 05/07/2021 3:28 PM EDT Impressions 05/07/2021 3:29 PM EDT No findings suspicious for malignancy are identified. In the absence of a worrisome palpable abnormality, annual screening mammography is recommended. BI-RADS CATEGORY: 1 - Negative. DENSITY: There are scattered fibroglandular densities. Narrative 05/07/2021 3:29 PM EDT COMPARISON: 02/22/2010 through 03/22/2020 Bilateral 3-D tomosynthesis with 2-D reconstructions in the CC and MLO projection. Computer-aided detection system was utilized. No new mass, asymmetry, architectural distortion or suspicious calcifications have become apparent on either side. Procedure Note Marek Mata MD - 05/07/2021 COMPARISON: 02/22/2010 through 03/22/2020 Bilateral 3-D tomosynthesis with 2-D reconstructions in the CC and MLOprojection. Computer-aided detection system was utilized. No new mass, asymmetry, architectural distortion or suspiciouscalcifications have become apparent on either side. IMPRESSION: No findings suspicious for malignancy are identified. In the absence of aworrisome palpable abnormality, annual screening mammography isrecommended. BI-RADS CATEGORY: 1 - Negative. DENSITY: There are scattered fibroglandular densities. Prem Blanchard MD IMG MG EXAMS Final Res ult documented in this encounter Visit Diagnoses Diagnosis Breast screening- Primary Breast screening, unspecified Breast screening Breast screening, unspecified Visit for screening mammogram documented in this encounter Care Teams Fire Protection Specialist Relationship Specialty Start Date End Date Prem Blanchard MD [address] [place] [address] [place] [address] PCP - General 12/02/16 Prem Blanchard MD [address] [place] [address] [place] [address] Historical LMR Provider 12/04/16 Melissa Arias, IRINA Historical LMR Provider 12/04/16 02/24/21 documented as of this encounter Additional Source Comments The information contained in this document represents components of the legal health record. It is not the complete legal health record.[facility]
--- OUTSIDE RECORDS SUMMARY | 2024-11-04 14:55 | XMS_ITS | Encounter Summary ---
Author Organization [facility] Address [address] [facility] [address] [place] [address] Phone Care Team Providers Care Radio Frequency Technician Name Role Phone Prem Blanchard MD Primary Care Provider [phone] Prem Blanchard MD Unavailable Melissa Arias RDCS Unavailable [email or web address] Encounter Details Date Type Department Care Team (Late st Contact Info) Description 02/25/2020 Ancillary Orders Virtual Department [address] [place] [address] Prem Blanchard MD [address] [place] [address] [place] [address] Breast screening Social History Tobacco Use Types [...] st Contact Info) Description 06/18/2024 Procedure Pass [address] [address] 01/10/2025 2:45 PM EST Appointment [address] [address] Prem Blanchard MD [address] [place] [address] [place] [address] documented as of this encounter Results * BI MAMMOGRAM SCREENING WITH TOMOSYNTHESIS WITH CAD (BILATERAL) (03/22/2020 2:39 PM EST) Anatomical Region Laterality Modality Breast Left, Breast Right, Breast Bilateral Bila teral Mammography 03/22/2020 4:56 PM EST Impressions 03/22/2020 5:39 PM EST No mammographic signs of malignancy. Annual screening is recommended. BI-RADS CATEGORY: 1 - Negative. DENSITY: There are scattered fibroglandular densities. Narrative 03/22/2020 5:39 PM EST Bilateral mammography is performed in conjunction with computed aided detection. 3-D tomography along with 2-D C view imaging was also performed. Comparison made to previous dated as far back as 05/08/2012 and as recent as 12/23/2017. No suspicious masses, areas of architectural distortion or suspicious microcalcifications. Procedure Note Deacon Faria MD - 03/22/2020 Bilateral mammography is performed in conjunction with computed aideddetection. 3-D tomography along with 2-D C view imaging was alsoperformed. Comparison made to previous dated as far back as 05/08/2012 andas recent as 12/23/2017. No suspicious masses, areas of architectural distortion or suspiciousmicrocalcifications. IMPRESSION: No mammographic signs of malignancy. Annual screening is recommended. BI-RADS CATEGORY: 1 - Negative. DENSITY: There are scattered fibroglandular densities. us Prem Blanchard MD IMG MG EXAMS Final Res ult documented in this encounter Visit Diagnoses Diagnosis Breast screening Breast screening, unspecified Breast screening Breast screening, unspecified Visit for screening mammogram documented in this encounter Care Teams Radio Frequency Technician Relationship Specialty Start Date End Date Prem Blanchard MD [address] [place] [address] [place] [address] PCP - General 12/02/16 Prem Blanchard MD [address] [place] [address] Dr Henry, [place] [address] Historical LMR Provider 12/04/16 Melissa Arias, IRINA [email or web address] Historical LMR Provider 12/04/16 02/24/21 documented as of this encounter Additional Source Comments The information contained in this document represents components of the legal health record. It is not the complete legal health record.[facility]
--- OUTSIDE RECORDS SUMMARY | 2024-11-04 14:55 | XMS_ITS | Encounter Summary ---
Author Organization [facility] Address [address] [facility] [address] [place] [address] Phone Care Team Providers Care Peripheral Equipment Operator Name Role Phone Prem Blanchard MD Primary Care Provider [phone] Prem Blanchard MD Unavailable [phone] Unavailable [email or web address] Encounter Details Date Type Department Care Team (Late st Contact Info) Description 02/02/2021 Procedure Pass [address] [address] Social History Tobacco Use Types Packs/Day Years Used Date Smoking Tobacco: Never Alcohol Use Standard Drinks/Week Comments Not Currently 0 (1 standard drink = 0.6 oz pur e alcohol) Comments No Sex and Gender Information Value Date Recorded Sex Assigned at Female 05/04/2021 7:58 PM EDT Legal Sex Female 9:56 PM EDT Gender Identity Female 05/04/2021 7:58 PM EDT Sexual Orientation Straight 05/04/2021 7: 58 PM EDT documented as of this encounter Plan of Treatment Upcoming Encounters Date Type Department Care Team (Late st Contact Info) Description 06/18/2024 Procedure Pass [address] [address] 01/10/2025 2:45 PM EST Appointment [address] [address] Prem Blanchard MD [address] [place] [address] Dr [place] [address] documented as of this encounter Visit Diagnoses Not on filedocumented in this encounter Care Teams Peripheral Equipment Operator Relationship Specialty Start Date End Date Prem Blanchard MD [address] [place] [address] [place] [address] PCP - General 12/02/16 Prem Blanchard MD [address] [place] [address] [place] [address] Historical LMR Provider 12/04/16 Melissa Arias, IRINA [email or web address] Historical LMR Provider 12/04/16 02/24/21 documented as of this encounter Additional Source Comments The information contained in this document represents components of the legal health record. It is not the complete legal health record.[facility]
--- OUTSIDE RECORDS SUMMARY | 2024-11-04 14:55 | XMS_ITS | Clinical Summary ---
Author Organization [facility] Address [address] [facility] [address] [place] [address] Phone Care Team Providers Care Surfboard Maker Name Role Phone Prem Blanchard MD Primary Care Provider [phone] Prem Blanchard MD Unavailable [phone] Family History Medical History Relation Comments CV disease Father CV disease Mother Diabetes mellitus Mother Cancer Sibling Relation Status Comments Father Mother Sibling Social History Tobacco Use Types Packs/Day Years Used Date Smoking Tobacco: Never Tobacco Cessation:Counseling Given: Not Answered Alcohol Use Standard Drinks/Week Comments Not Currently [...] Orientation Straight 05/04/2021 7: 58 PM EDT Last Filed Vital Signs Vital Sign Reading Time Taken Comments Blood Pressure 140/80 05/19/2014 11:41 AM EDT Pulse 64 05/19/2014 11:41 AM EDT Temperature - - Respiratory Rate - - Oxygen Saturation - - Inhaled Oxygen Concentration - - Weight 52.1 kg (114 lb 12.8 oz) 015 11:41 AM EDT Height 160 cm (5' 3 ) 05/19/2014 11:41 AM EDT Body Mass Index 20.34 05/19/2014 11:41 AM EDT Plan of Treatment Upcoming Encounters Date Type Department Care Team (Late st Contact Info) Description 06/18/2024 Procedure Pass [address] [address] 01/10/2025 2:45 PM EST Appointment [address] [address] Prem Blanchard MD [address] [place] [address] [place] [address] Medical Devices Not on file Insurance [facility] MEDEX SUPPLEMENT MEDICARE PART A & B [employer] MEDEX SUPPLEMENT MEDICARE PART A & B [employer] MED[employer] SUPPLEMENT MEDICARE PART A & B [employer] MED[employer] SUPPLEMENT MEDICARE PART A & B [employer] MED[employer] SUPPLEMENT MEDICARE PART A & B [employer] MED[employer] SUPPLEMENT MEDICARE PART A & B [employer] MEDEX SUPPLEMENT MEDICARE PART A & B [facility] MEDEX SUPPLEMENT MEDICARE PART A & B [employer] SUPPLEMENT MEDICARE PART A & B Care Teams Surfboard Maker Relationship Specialty Start Date End Date Prem Blanchard MD [address] [place] [address] [place] [address] PCP - General 12/02/16 Prem Blanchard MD [address] [place] [address] [place] [address] Historical LMR Provider 12/04/16 Additional Source Comments The information contained in this document represents components of the legal health record. It is not the complete legal health record.[facility]
--- OUTSIDE RECORDS SUMMARY | 2024-11-04 14:55 | XMS_ITS | Clinical Summary ---
Author Organization [facility] [address] [facility] Address [address] [place] [address] Phone Care Team Providers Care Epidemiology Intern Name Role Phone Prem Blanchard MD Primary [...] your loved ones. For example, child care team lead or elderly care for an older adult? [...] Recently Relevant to Health Maintenance Insurance MEDICARE [facility] Care Teams Epidemiology Intern Relationship Specialty Start Date End Date Prem Blanchard MD [address] [place] [address] [address] [place] PCP - General Internal Medicine 02/01/16
== END 2024-11-04 12:52 | disposition home or self-care (01) ==
LOC: HO.CT 12:51
PROVIDERS: PCP Internal Medicine; Visit Provider Nurse Practitioner Family
DX: R91.1 Solitary pulmonary nodule (principal); R91.8 Other nonspecific abnormal finding of lung field
CPT/HCPCS: 71250

== ENCOUNTER → 2024-11-04 12:53 | Outpatient (BNV) | payer MEDICARE, SELFPAY | PROVIDERS: PCP Internal Medicine; Visit Provider Radiology Diagnostic Radiology | DX: R91.1 Solitary pulmonary nodule (principal) | CPT/HCPCS: 71250 ==

== ENCOUNTER 2024-11-09 08:50 | Outpatient (AMB) | payer MEDICARE, SELFPAY ==
--- NOTE | 2024-11-09 08:52 | A.OFFVIS_ITS ---
Vital Signs 11/09/24 08:54 Height 5 ft 4 in Weight 117 lb BMI 20.1 BP 130/82 Blood Pressure Location Rt brachial Position Sitting Pulse 57 Pulse Source Pulse Oximeter Pulse Oximetry (%) 99 Oxygen Delivery Method Room Air Intake Visit Reasons: copd Allergies Chloroquine Phosphate Allergy (Intermediate, Uncoded 11/09/24 08:59) Hives HPI HPI copd: Details: Carole is a pleasant 69 year old female, never smoker, with underlying asthma, pulmonary nodule, HTN, GERD, and osteoporosis. She was initially referred by PCP for pulmonary evaluation for chronic cough, occasionally productive with clear sputum. Denies dyspnea, chest tightness or wheezing. She had trialed Flonase with improvements in post nasal drip however no change in cough. She was started on PPI for possible silent reflux with minimal change. Prior PFT did not reveal an obstructive defect however lung volumes were increased, suggestive of air trapping and possible small airways disease such as asthma in addition to +RAST, elevated IgE and eosinophils, offered to trial an inhaler however she declined. Since the last visit, she notes that her cough was minimal over the summer however has increased with the seasonal changes likely related to allergies. She restarted Flonase as well as Claritin with minimal change. She continues with intermittent sinus congestion, dry cough, continues to decline an inhaler. Denies dyspnea, wheezing or chest tightness. Discussed an allergy referral, as she previously required allergen immunotherapy in her 20s but she feels her symptoms currently do not warrant a referral at this time. She denies any visits to urgent care or hospitalizations since the last visit. Today she presents to review chest CT results. Prior chest CT 10/2023 revealed 3 mm RUL nodule. Of note, patient seen by cardiology started on ASA and statin for CAD, also previously underwent stress test reportedly without significant findings. [facility] Medical History Osteopenia Insomnia Pure hypercholesterolemia Allergic rhinitis Benign essential hypertension Osteoporosis Surgical History History of colonoscopy History of dilation and curettage History of tonsillectomy Family History Mother CHF (congestive heart failure) Diabetes Father Heart attack Brother Colon cancer Social History Housing: House Alcohol intake: current Alcohol intake frequency: does not drink Patient Tobacco Use Status: Never used Tobacco Tobacco use type: Cigarette e-Cigarette/Vaping Use: Never Used Second Hand Smoke Exposure: No service: No Current occupational status: retired Cognitive needs: No Hearing needs: No Vision needs: Yes (Glasses) Review of Systems Const Denies chills, Denies excessive sweating, Denies fever(s), Denies headache(s) and Denies night sweats Eyes Denies dry eyes and Denies irritation ENT Reports Normal hearing present, Denies headache(s), Reports nasal congestion and Reports post nasal drip Card Denies chest pain, Denies chest pain at rest, Denies chest pain with activity, Denies claudication, Denies leg edema, Denies dyspnea on exertion, Denies orthopnea and Denies paroxysmal nocturnal dyspnea Resp Denies change in phlegm color, Denies chest congestion, Reports cough, Denies excessive phlegm production, Denies dyspnea on exertion and Denies wheezing Musc Denies myalgias Neuro Reports Normal hearing present and Denies headache(s) Endo Denies excessive sweating Gumaro/Lymph Denies lymphadenopathy Aller/Immun Denies wheezing Physical Exam Vital Signs: Last Vital Signs Pulse 57 11/09/24 08:54 BP 130/82 11/09/24 08:54 Pulse Ox 99 11/09/24 08:54 Oxygen Delivery Method Room Air 11/09/24 08:54 BMI result Body Mass Index 20.1 Const General: cooperative, healthy appearing, comfortable, no acute distress, well developed and alert Orientation/consciousness: patient oriented x3 Limitations: no limitations HEENT Head: Yes normal to inspection, Yes normocephalic and Yes atraumatic Ears: hearing grossly normal bilaterally and external ears normal Eyes General: appearance normal, both eyes and all related structures Eyelids: Yes eyelids normal Sclerae: sclerae normal EOM: EOMs intact bilaterally Neck Neck: Yes normal visual inspection and Yes no lymphadenopathy Lymphatic: no lymphadenopathy noted Chest Chest palpation & inspection: normal inspection of the chest Resp Effort & Inspection: normal respiratory effort, able to speak in complete sentences, no audible wheezes, no cough, no stridor, not tachypneic, no tripod positioning and no use of accessory muscles Auscultation: diminished lung sounds Cardio Jugular venous distension: no JVD Rate: regular rate Rhythm: regular rhythm Skin Other: warm, dry General skin exam: no rashes or lesions noted Neuro General: patient oriented x3 Cranial nerves: Yes Normal hearing present Cognition (Neuro): normal cognition Gait exam (Neuro): Normal gait present Extrem General: Yes normal to inspection, Yes capillary refill normal, Yes no clubbing, cyanosis or edema and Yes no pedal edema Psych Appearance: grossly normal and well kempt Speech and movement: Normal speech and movement present and Clear speech present Affect: normal affect Attitude: cooperative Thought process: Normal thought process present Thought content: Normal thought content present Insight: Good insight present (Psych) Judgement: Good judgement present (Psych) Results Reviewed Results Reviewed: [address] [address] [address] Scan Report Signed Patient: Carole Alba MR#: [id number] : 1955 Acct:[id number] Age/Sex: 69 / F ADM Date: 11/04/24 Loc: HO.CT Attending Dr: Marah Arevalo NP Ordering Physician: Marah Arevalo NP Date of Service: 11/04/24 Procedure(s): CT chest wo IV con Accession Number(s): [id number] cc: Prem Blanchard MD; Marah Arevalo NP~ Report Number: [id number]: Total DLP = 42.00 mGy-cm Reason for Exam: R91.8 - Other nonspecific abnormal finding of lung field CLINICAL HISTORY: R91.8 - Other nonspecific abnormal finding of lung field CT chest without contrast Comparison: CT/SD/SR - CT CHEST WITHOUT IV CONTRAST - 11/12/23 16:41 EDT Findings: The heart is normal size. Wedi-lb-zmkulxie coronary calcification. No pericardial effusion. Nonaneurysmal ascending aorta. The visualized thyroid and mediastinum are unremarkable. No chest wall lesions. The trachea and central bronchi are patent. No dense consolidation, pleural effusion or pneumothorax. A 3 mm nodule in the right lung apex is stable image 16 series 4. No new or enlarging nodules or masses. The upper abdomen is unremarkable. The bones are intact. IMPRESSION: 1. Unchanged 3 mm right apical nodule. No new or enlarging nodules or masses. 2. No acute cardiopulmonary disease. This document has been electronically signed by: Jia Sampson MD on 11/05/2024 09:07:46 Dictated By: Jia Sampson MD Signed By: <Electronically signed by Jia Sampson MD in OV> 11/05/24907 DD/ 6 TD/TT: 11/05/24906 Accounting File Clerk: Assessment & Plan Assessment & Plan (1) Chronic cough: Code(s): R05.3 - Chronic cough Category: Medical (2) Environmental allergies: Code(s): Z91.09 - Other allergy status, other than to drugs and biological substances Category: Medical (3) GERD (gastroesophageal reflux disease): Code(s): K21.9 - Gastro-esophageal reflux disease without esophagitis Category: Medical Qualifiers: Esophagitis presence: without esophagitis Qualified Code(s): K21.9 - Gastro-esophageal reflux disease without esophagitis (4) Pulmonary nodule: Code(s): R91.1 - Solitary pulmonary nodule Category: Medical Plan Discussed with Carole the likelihood that symptoms are related to small airways disease such as asthma as well as allergies. Recommended ICS/LABA however patient declined, as she does not report dyspnea. Advised to trial saline nasal rinses and continue antihistamine/Flonase. If symptoms worsen may consider allergy referral. Reviewed chest CT which revealed stable 3 mm right apex nodule, however slight changes in overall denisity of nodule appears more solid. Will repeat in one year to assess stability, if no changes, no need for further imaging. All questions were answered and patient is in agreement of plan. Will follow up to review results of CT chest or sooner if needed. Orders: Orders CT chest wo IV con 11 Months R91.1 - Solitary pulmonary nodule Coding Level of Care Code Est Pt Level 4 (90289) Diagnoses Chronic cough R05.3 Environmental allergies Z91.09 Gastroesophageal reflux disease without esophagitis K21.9 Esophagitis presence: without esophagitis Pulmonary nodule R91.1
[2024-11-09 08:54] VITALS: BP 130/82; PULSE 57; O2SAT 99; BMI 20.1
--- OUTSIDE RECORDS SUMMARY | 2024-11-09 10:00 | XMS_ITS | Clinical Summary ---
Author Organization [facility] [address] [facility] Address [address] [place] [address] Phone Care Team Providers Care Machine Maintenance Supervisor Name Role Phone Prem Blanchard MD Primary [...] your loved ones. For example, child care aide or elderly care for an older adult? [...] Recently Relevant to Health Maintenance Insurance MEDICARE [facility] Care Teams Machine Maintenance Supervisor Relationship Specialty Start Date End Date Prem Blanchard MD [address] [place] [address] [address] [place] PCP - General Internal Medicine 02/01/16
--- OUTSIDE RECORDS SUMMARY | 2024-11-09 10:00 | XMS_ITS | Encounter Summary ---
Author Organization [facility] Address [address] [facility] [address] [place] [address] Phone Care Team Providers Care Service Rig Operator Name Role Phone Prem Blanchard MD Primary Care Provider [phone] Prem Blanchard MD Unavailable [phone] Melissa Arias RDCS Unavailable [email or web address] Encounter Details Date Type Department Care Team (Late st Contact Info) Description 02/02/2021 Transcribe Orders Virtual Department [address] [place] [address] Prem Blanchard MD [address] [place] [address] [place] [address] Breast screening (Primary Dx) Social History Tobacco [...] st Contact Info) Description 06/18/2024 Procedure Pass [address] [address] 01/10/2025 2:45 PM EST Appointment [address] [address] Prem Blanchard MD [address] [place] [address] [facility] [place] [address] documented as of this encounter Results * [...] mammogram documented in this encounter Care Teams Service Rig Operator Relationship Specialty Start Date End Date Prem Blanchard MD [address] [place] [address] [place] [address] PCP - General 12/02/16 Prem Blanchard MD [address] [place] [address] [place] [address] Historical LMR Provider 12/04/16 Melissa Arias, IRINA Historical LMR Provider 12/04/16 02/24/21 documented as of this encounter Additional Source Comments The information contained in this document represents components of the legal health record. It is not the complete legal health record.[facility]
--- OUTSIDE RECORDS SUMMARY | 2024-11-09 10:00 | XMS_ITS | Encounter Summary ---
Author Organization [facility] Address [address] [facility] [address] [place] [address] Phone Care Team Providers Care Cotton Cleaner Name Role Phone Prem Blanchard MD Primary Care Provider [phone] Prem Blanchard MD Unavailable [phone] Unavailable [email or web address] Encounter Details Date Type Department Care Team (Late st Contact Info) Description 02/02/2021 Procedure Pass [address] [address] Social History Tobacco Use Types Packs/Day Years [...] st Contact Info) Description 06/18/2024 Procedure Pass [address] [address] 01/10/2025 2:45 PM EST Appointment [address] [address] Prem Blanchrad MD [address] [place] [address] [address] [place] [address] documented as of this encounter Visit Diagnoses Not on filedocumented in this encounter Care Teams Cotton Cleaner Relationship Specialty Start Date End Date Prem Blanchard MD [address] [place] [address] [place] [address] PCP - General 12/02/16 Prem Blanchard MD [address] [place] [address] [place] [address] Historical LMR Provider 12/04/16 Melissa Arias, IRINA [email or web address] Historical LMR Provider 12/04/16 02/24/21 documented as of this encounter Additional Source Comments The information contained in this document represents components of the legal health record. It is not the complete legal health record.[facility]
--- OUTSIDE RECORDS SUMMARY | 2024-11-09 10:00 | XMS_ITS | Clinical Summary ---
Author Organization [facility] Address [address] [place] [address] Phone Care Team Providers Care Network Mgr Name Role Phone Prem Blanchard MD Primary Care Provider [phone] Prem Blanchard MD Unavailable [phone] Family History Medical History Relation Comments CV [...] st Contact Info) Description 06/18/2024 Procedure Pass [address] [address] 01/10/2025 2:45 PM EST Appointment [address] [address] Prem Blanchard MD [address] [place] [address] [place] [address] Medical Devices Not on file Insurance [facility] MEDEX SUPPLEMENT MEDICARE PART A & B [employer] MEDEX SUPPLEMENT MEDICARE PART A & B [employer] MEDEX SUPPLEMENT MEDICARE PART A & B [employer] MEDEX SUPPLEMENT MEDICARE PART A & B [employer] MEDEX SUPPLEMENT MEDICARE PART A & B [employer] MEDEX SUPPLEMENT MEDICARE PART A & B 4[employer] MEDEX SUPPLEMENT MEDICARE PART A & B [facility] MEDEX SUPPLEMENT MEDICARE PART A & B [employer] MEDEX SUPPLEMENT MEDICARE PART A & B Care Teams Network Mgr Relationship Specialty Start Date End Date Prem Blanchard MD [address] [place] [address] [place] [address] PCP - General 12/02/16 Prem Blanchard MD [address] [place] [address] [place] [address] Historical LMR Provider 12/04/16 Additional Source Comments The information contained in this document represents components of the legal health record. It is not the complete legal health record.[facility]
--- OUTSIDE RECORDS SUMMARY | 2024-11-09 10:00 | XMS_ITS | Encounter Summary ---
Author Organization [facility] Address [address] [facility] [address] [place] [address] Phone Care Team Providers Care Analog Ic Design Architect Name Role Phone Prem Blanchard MD Primary Care Provider [phone] Prem Blanchard MD Unavailable [phone] Unavailable [email or web address] Encounter Details Date Type Department Care Team (Late st Contact Info) Description 02/25/2020 Procedure Pass [address] [address] Social History Tobacco Use Types Packs/Day Years [...] Contact Info) Description 06/18/2024 Procedure Pass [address] [address] 01/10/2025 2:45 PM EST Appointment [address] [address] Prem Blanchard MD [address] [place] [address] [place] [address] documented as of this encounter Visit Diagnoses Not on filedocumented in this encounter Care Teams Analog Ic Design Architect Relationship Specialty Start Date End Date Prem Blanchard MD [address] [place] [address] [place] [address] PCP - General 12/02/16 Prem Blanchard MD [address] [place] [address] [place] [address] Historical LMR Provider 12/04/16 Melissa Arias, IRINA Historical LMR Provider 12/04/16 02/24/21 documented as of this encounter Additional Source Comments The information contained in this document represents components of the legal health record. It is not the complete legal health record.[facility]
--- OUTSIDE RECORDS SUMMARY | 2024-11-09 10:00 | XMS_ITS | Encounter Summary ---
Author Organization [facility] Address [address] [facility] [address] [place] [address] Phone Care Team Providers Care Fitting Room Maintenance Mechanic Name Role Phone Prem Blanchard MD Primary Care Provider [phone] Prem Blanchard MD Unavailable [phone] Encounter Details Date Type Department Care Team (Late Contact Info) Description 07/03/2022 Procedure Pass [address] [address] Social History Tobacco Use Types Packs/Day Years [...] (Late Contact Info) Description 06/18/2024 Procedure Pass [address] [address] 01/10/2025 2:45 PM EST Appointment [facility], [address] [place] [address] Prem Blanchard MD [address] [place] [address] [place] [address] documented as of this encounter Visit Diagnoses Not on filedocumented in this encounter Care Teams Fitting Room Maintenance Mechanic Relationship Specialty Start Date End Date Prem Blanchard MD [address] [place] [address] [place] [address] PCP - General 12/02/16 Prem Blanchard MD [address] [place] [address] [place] [address] Historical LMR Provider 12/04/16 documented as of this encounter Additional Source Comments The information contained in this document represents components of the legal health record. It is not the complete legal health record.[facility]
--- OUTSIDE RECORDS SUMMARY | 2024-11-09 10:00 | XMS_ITS | Encounter Summary ---
Author Organization [facility] Address [address] [facility] [address] [place] [address] Phone Care Team Providers Care Manager Play Name Role Phone Prem Blanchard MD Primary Care Provider [phone] Prem Blanchard MD Unavailable [phone] Encounter Details Date Type Department Care Team (Late Contact Info) Description 07/03/2022 Transcribe Orders Virtual Department [address] [place] [address] Prem Blanchard MD [address] [place] [address] [place] [address] Breast screening (Primary Dx) Social History Tobacco [...] (Late Contact Info) Description 06/18/2024 Procedure Pass [address] [address] 01/10/2025 2:45 PM EST Appointment [address] [address] Prem Blanchard MD [address] [place] [address] [place] [address] documented as of this encounter Results * [...] mammogram documented in this encounter Care Teams Manager Play Relationship Specialty Start Date End Date Prem Blanchard MD [address] [place] [address] [place] [address] PCP - General 12/02/16 Prem Blanchard MD [address] [place] [address] [place] [address] Historical LMR Provider 12/04/16 documented as of this encounter Additional Source Comments The information contained in this document represents components of the legal health record. It is not the complete legal health record.[facility]
--- OUTSIDE RECORDS SUMMARY | 2024-11-09 10:00 | XMS_ITS | Encounter Summary ---
Author Organization [facility] Address [address] [place] [address] Phone Care Team Providers Care Deputy Commonwealth'S Attorney Name Role Phone Prem Blanchard MD Primary Care Provider [phone] Prem Blanchard MD Unavailable [phone] Encounter Details Date Type Department Care Team (Late st Contact Info) Description 09/09/2023 Procedure Pass [facility], [address] [address] Social History Tobacco Use Types Packs/Day Years [...] st Contact Info) Description 06/18/2024 Procedure Pass [address] [address] 01/10/2025 2:45 PM EST Appointment [address] [address] Prem Blanchard MD [address] [place] [address] [place] [address] documented as of this encounter Visit Diagnoses Not on filedocumented in this encounter Care Teams Deputy Commonwealth'S Attorney Relationship Specialty Start Date End Date Prem Blanchard MD [address] [place] [address] [place] [address] PCP - General 12/02/16 Prem Blanchard MD [address] [place] [address] [place] [address] Historical LMR Provider 12/04/16 documented as of this encounter Additional Source Comments The information contained in this document represents components of the legal health record. It is not the complete legal health record.[facility]
--- OUTSIDE RECORDS SUMMARY | 2024-11-09 10:00 | XMS_ITS | Encounter Summary ---
Author Organization [facility] Address [address] [facility] [address] [place] [address] Phone Care Team Providers Care News Producer Name Role Phone Prme Blanchard MD Primary Care Provider [phone] Prem Blanchard MD Unavailable Melissa Arias RDCS Unavailable [email or web address] Encounter Details Date Type Department Care Team (Late st Contact Info) Description 11/20/2017 Ancillary Orders Virtual Department [address] [place] [address] Prem Blanchard MD [address] [place] [address] [place] [address] Breast screening Social History Tobacco Use Types [...] (Late Contact Info) Description 06/18/2024 Procedure Pass [address] [address] 01/10/2025 2:45 PM EST Appointment [address] [address] Prem Blanchard MD [address] [place] [address] [address] [place] [address] documented as of this encounter Results * [...] mammogram documented in this encounter Care Teams News Producer Relationship Specialty Start Date End Date Prem Blanchard MD [address] [place] [address] Dr [address] [place] [address] PCP - General 12/02/16 Prem Blanchard MD [address] [place] [address] Dr Park [address] [place] [address] Historical LMR Provider 12/04/16 Melissa Arias, IRINA Historical LMR Provider 12/04/16 02/24/21 documented as of this encounter Additional Source Comments The information contained in this document represents components of the legal health record. It is not the complete legal health record.[facility]
--- OUTSIDE RECORDS SUMMARY | 2024-11-09 10:00 | XMS_ITS | Encounter Summary ---
Author Organization [facility] Address [address] [facility] [address] [place] [address] Phone Care Team Providers Care Factory Supervisor Name Role Phone Prem Blanchard MD Primary Care Provider [phone] Prem Blanchard MD Unavailable Melissa Arias RDCS Unavailable [email or web address] Encounter Details Date Type Department Care Team (Late st Contact Info) Description 02/25/2020 Ancillary Orders Virtual Department [address] [place] [address] Prem Blanchard MD [address] [place] [address] [place] [address] Breast screening Social History Tobacco Use Types [...] st Contact Info) Description 06/18/2024 Procedure Pass [address] [address] 01/10/2025 2:45 PM EST Appointment [address] [address] Prem Blanchard MD [address] [place] [address] [place] [address] documented as of this encounter Results * [...] mammogram documented in this encounter Care Teams Factory Supervisor Relationship Specialty Start Date End Date Prem Blanchard MD [address] [place] [address] [place] [address] PCP - General 12/02/16 Prem Blanchard MD [address] [place] [address] Dr Henry, [place] [address] Historical LMR Provider 12/04/16 Melissa Arias, IRINA [email or web address] Historical LMR Provider 12/04/16 02/24/21 documented as of this encounter Additional Source Comments The information contained in this document represents components of the legal health record. It is not the complete legal health record.[facility]
== END 2024-11-09 09:14 | disposition home or self-care (01) ==
LOC: HO.HPSW 08:51
PROVIDERS: PCP Internal Medicine; Visit Provider Nurse Practitioner Family
DX: R05.3 Chronic cough (principal); Z91.09 Other allergy status, other than to drugs and biological substances; K21.9 Gastro-esophageal reflux disease without esophagitis; R91.1 Solitary pulmonary nodule
CPT/HCPCS: 99214

== ENCOUNTER → 2024-11-09 08:50 | Outpatient (BNVA) | payer MEDICARE, SELFPAY | PROVIDERS: PCP Internal Medicine; Visit Provider Nurse Practitioner Family | DX: R05.3 Chronic cough (principal); Z91.09 Other allergy status, other than to drugs and biological substances; K21.9 Gastro-esophageal reflux disease without esophagitis; R91.1 Solitary pulmonary nodule | CPT/HCPCS: 99212 ==